=== PATIENT | female | born 1950 | race Caucasian/White ===

== ENCOUNTER → 2021-06-29 11:20 | Outpatient (CLI) | payer MEDICARE, OTHER, SELFPAY ==
[2021-06-29 11:28] LABS: Microscopic, Urine URINE MICROSCOPIC (MICROSCOPIC)
[2021-06-29 11:46] LABS: Hematocrit 40.1 % (37.0-47.0); Hemoglobin 13.2 g/dL (12.2-16.2); Mean Corpuscular HGB Conc 32.8 g/dL (31.8-35.4); Mean Corpuscular Hemoglobin 31.9 pg (27.0-31.2); Platelet Count 277 K/mm3 (142-424); Red Blood Count 4.13 M/mm3 (4.20-5.40); Red Cell Distribution Width 13.2 % (11.5-17.5); White Blood Count 6.2 K/mm3 (4.8-10.8)
[2021-06-29 12:54] LABS: Appearance,Urine CLEAR (Clear); Bilirubin,Urine Negative (Negative); Blood, Urine Negative (Negative); Color,Urine YELLOW (Yellow); Glucose,Urine (UA) Negative (Negative); Ketones,Urine Negative (Negative); Leukocyte Esterase,Urine Negative (Negative); Nitrate,Urine Negative (Negative); Protein,Urine Negative (Negative); Specific Gravity, Urine 1.025 (1.005-1.030); Urobilinogen,Urine 0.2 EU/dl (0.2)
[2021-06-29 13:04] LABS: Creatinine,Urine Random 142 mg/dL (Not Estab.)
[2021-06-29 13:07] LABS: Chloride 102 mmol/L (98-107); Potassium 4.7 mmoL/L (3.5-5.1); Sodium 141 mmol/L (136-145)
[2021-06-29 13:08] LABS: Albumin Level 4.6 g/dl (3.5-5.0)
[2021-06-29 13:10] LABS: Anion Gap 12.7 mEq/L (5-15); Blood Urea Nitrogen 21 mg/dl (7-17); Calcium 10.2 mg/dl (8.4-10.2); Carbon Dioxide 31 mmol/L (22.0-30.0); Estimated Glomerular Filt Rate 40 ml/min (>60); GFR (African American) 49 ML/MIN (>60); Glucose 106 mg/dl (74-100); Phosphorous 4.5 mg/dl (2.5-4.5)
[2021-06-29 13:15] LABS: Squamous Epithelial Cell,Urine Occasional #/hpf (0-5)
== END ==
PROVIDERS: Visit Provider Internal Medicine Nephrology
DX: I12.9 Hypertensive chronic kidney disease with stage 1 through stage 4 chronic kidney disease, or unspecified chronic kidney disease (principal)
CPT/HCPCS: 36415; 80069; 81001; 82570; 84155; 85014; 85018; 85048; 85049

== ENCOUNTER → 2021-07-05 12:59 | Outpatient (POV) | payer MEDICARE, OTHER, SELFPAY | PROVIDERS: Visit Provider Internal Medicine Nephrology | DX: Z00.00 Encounter for general adult medical examination without abnormal findings (principal) ==

== ENCOUNTER → 2021-12-13 09:10 | Outpatient (CLI) | payer MEDICARE, OTHER, SELFPAY ==
--- NOTE | 2021-12-13 09:34 | XR_ITS ---
FINAL REPORT TECHNIQUE: Bone mineral density was calculated of the lumbar spine and hip. CLINICAL HISTORY: . post menopausal FINDINGS: Using L1-4, the bone mineral density of the spine is 0.861 g/cm2, corresponding to T-score of -1.7. Using the left hip, the bone mineral density of the femoral neck is 0.649 g/cm2, corresponding to a T-score of -1.8. IMPRESSION: Diminished bone mineral density of the lumbar spine and left hip consistent with osteopenia. FRAX data: 10 year fracture risk for major osteoporotic fracture 11% Reviewed, Interpreted and Dictated by Cesar Schwartz III, MD Transcribed by Derek Quinteros Authenticated by Cesar Schwartz III, MD on 12/13/2021 01:52:[address] [facility]
== END ==
PROVIDERS: PCP Family Medicine; Visit Provider Physician Assistant
DX: Z78.0 Asymptomatic menopausal state (principal)
CPT/HCPCS: 77080

== ENCOUNTER → 2023-05-02 10:59 | Outpatient (CLI) | payer MEDICARE, OTHER, SELFPAY ==
--- NOTE | 2023-05-02 11:09 | XR_ITS ---
FINAL REPORT CLINICAL HISTORY: RIGHT KNEE PAIN FINDINGS: 3 views of the right knee were obtained. There is no acute fracture or dislocation. There are mild degenerative changes. There is a small joint effusion. IMPRESSION: Small joint effusion with mild degenerative change. Reviewed, Interpreted and Dictated by Cesar Schwartz III, MD Transcribed by Derek Quinteros Authenticated and [facility]
== END ==
PROVIDERS: PCP Physician Assistant; Visit Provider Nurse Practitioner Family
DX: M25.561 Pain in right knee (principal)
CPT/HCPCS: 73562

== ENCOUNTER 2024-04-02 01:30 | Inpatient (IN) | payer MEDICARE, OTHER, SELFPAY ==
[2024-04-02] VITALS (19 sets, daily range): BP systolic 117–230; BP diastolic 74–118; PULSE 60–80; RESP 11–26; TEMP 36.4–37; O2SAT 94–99; BMI 25.0; BMI 24.8; BMI 25.5
--- NOTE | 2024-04-02 01:40 | CT_ITS ---
PROCEDURE INFORMATION: Exam: CTA Neck With Contrast Exam date and time: 04/02/2024 2:15 AM Age: 73 years old Clinical indication: Stroke-like symptoms; Lt lower extremity weakness; Additional info: Possible stroke TECHNIQUE: Imaging protocol: Computed tomographic angiography of the neck with contrast. Exam focused on the cervical segments of the vasculature. 3D rendering (Not supervised by radiologist): MIP and/or 3D reconstructed images were created by the technologist. Radiation optimization: All CT scans at this facility use at least one of these dose optimization techniques: automated exposure control; mA and/or kV adjustment per patient size (includes targeted exams where dose is matched to clinical indication); or iterative reconstruction. Contrast material: ISOVUE; Contrast volume: 80 ml; Contrast route: INTRAVENOUS (IV); COMPARISON: CT ANGIO NECK 04/02/2024 2:15 AM FINDINGS: Right common carotid artery: No stenosis. No dissection or occlusion. Right internal carotid artery: No stenosis of the extracranial segment. No dissection or occlusion. Calcified and noncalcified plaque involving the bulb and bifurcation. There is less than 50% stenosis of the proximal ICA. Right external carotid artery: No occlusion or stenosis of the origin. Left common carotid artery: No stenosis. No dissection or occlusion. Left internal carotid artery: No stenosis of the extracranial segment. No dissection or occlusion. Focal calcific plaque proximal ICA with less than 50% stenosis. Left external carotid artery: No occlusion or stenosis of the origin. Right vertebral artery: No stenosis. No dissection or occlusion. Left vertebral artery: No stenosis. No dissection or occlusion. Left vertebral artery originates from the transverse arch. Soft tissues: Normal. No significant soft tissue swelling. Bones/joints: No acute fracture. Significant degenerative disc disease from C4 through C7. Diffuse significant cervical facet arthropathy. IMPRESSION: No occlusion. Less than 50% stenosis proximal ICA bilaterally. REFERENCES: NASCET CRITERIA. The degree of stenosis in the cervical segment of the internal carotid artery is based on NASCET criteria. Normal is no stenosis. Mild is less than 50% stenosis. Moderate is 50-69% stenosis. Severe is 70% to 99% stenosis. Total occlusion is no detectable patent lumen.
--- NOTE | 2024-04-02 01:40 | CT_ITS ---
PROCEDURE INFORMATION: Exam: CTA Head With Contrast, Arteriography Exam date and time: 04/02/2024 2:15 AM Age: 73 years old Clinical indication: Stroke-like symptoms; Lt lower extremity weakness; Additional info: Possible stroke TECHNIQUE: Imaging protocol: Computed tomographic angiography of the head with contrast. Exam focused on the arteries. 3D rendering (Not supervised by radiologist): MIP and/or 3D reconstructed images were created by the technologist. Radiation optimization: All CT scans at this facility use at least one of these dose optimization techniques: automated exposure control; mA and/or kV adjustment per patient size (includes targeted exams where dose is matched to clinical indication); or iterative reconstruction. Contrast material: ISOVUE; Contrast volume: 80 ml; Contrast route: INTRAVENOUS (IV); COMPARISON: CT HEAD/BRAIN WO CON 04/02/2024 2:09 AM FINDINGS: ANTERIOR CIRCULATION: Right internal carotid artery: Intracranial segment is patent with no significant stenosis. No aneurysm. Mild calcification of the siphon. Right middle cerebral artery: No occlusion or significant stenosis. No aneurysm. Right anterior cerebral artery: No occlusion or significant stenosis. No aneurysm. Left internal carotid artery: Intracranial segment is patent with no significant stenosis. No aneurysm. Moderate calcification siphon. Left middle cerebral artery: No occlusion or significant stenosis. No aneurysm. Left anterior cerebral artery: No occlusion or significant stenosis. No aneurysm. POSTERIOR CIRCULATION: Right vertebral artery: No occlusion or significant stenosis. No aneurysm. Left vertebral artery: No occlusion or significant stenosis. No aneurysm. Basilar artery: No occlusion or significant stenosis. No aneurysm. Right posterior cerebral artery: No occlusion or significant stenosis. No aneurysm. Left posterior cerebral artery: No occlusion or significant stenosis. No aneurysm. Brain: No definite mass, mass effect, or midline shift. Please see the separate report of the unenhanced CT of the brain. Cerebral ventricles: No ventriculomegaly. Bones/joints: Unremarkable. No acute fracture. Soft tissues: Unremarkable. IMPRESSION: No large vessel stenosis or occlusion.
--- NOTE | 2024-04-02 01:40 | CT_ITS ---
PROCEDURE INFORMATION: Exam: CT Head Without Contrast Exam date and time: 04/02/2024 2:09 AM Age: 73 years old Clinical indication: Stroke-like symptoms; Lt lower extremity weakness; Additional info: Possible stroke TECHNIQUE: Imaging protocol: Computed tomography of the head without contrast. Radiation optimization: All CT scans at this facility use at least one of these dose optimization techniques: automated exposure control; mA and/or kV adjustment per patient size (includes targeted exams where dose is matched to clinical indication); or iterative reconstruction. Other technique: STROKE PROTOCOL was implemented. COMPARISON: No relevant prior studies available. FINDINGS: Brain: There is age related atrophy. There is a subtle area of decreased density within the body of the caudate nucleus centered on image 164 series 5 suspicious for acute ischemia. No hemorrhage. There is moderate periventricular white matter hypodensity consistent with chronic small vessel disease. No mass effect. Cerebral ventricles: No ventriculomegaly. Paranasal sinuses: Visualized sinuses are unremarkable. No fluid levels. Mastoid air cells: Visualized mastoid air cells are well aerated. Orbital cavities: The orbital contents are symmetric and normal. Bones: Unremarkable. No acute fracture. Soft tissues: Unremarkable. IMPRESSION: Area of decreased density within the right caudate body centered on image 164 series 5 suspicious for acute ischemia. MR imaging is more sensitive for acute ischemic findings and could be performed as clinically indicated. ASSESSMENT: ASPECTS ([place] Stroke Program Early CT Score) is 9.
--- NOTE | 2024-04-02 01:48 | ECG_ITS ---
APPROVED REPORT Exam: Resting ECG HR:70 bpm ECG Measurements Heart Rate 70 AXES CA 184 P 62 QRSd 90 QRS -33 QT 403 T 20 QTc 424 Conclusion SINUS RHYTHM LEFT AXIS DEVIATION [QRS AXIS < -30] ABNORMAL ECG Electronically signed by : BRO CALI, 04/02/2024 18:04:13
[2024-04-02] MEDS: LABETALOL 20MG/4ML SYRINGE 10 MG IV (01:49)
[2024-04-02 01:53] LABS: Albumin Level 4.8 g/dl (3.5-5.0); Chloride 107 mmol/L (98-107); Potassium 4.4 mmoL/L (3.5-5.1); Sodium 140 mmol/L (136-145)
[2024-04-02 01:55] LABS: Blood Urea Nitrogen 29 mg/dl (7-17); Creatinine Clearance Estimated 35 mL/min (50-200); Estimated Glomerular Filt Rate 32 ml/min (>60); GFR (African American) 38 ML/MIN (>60)
[2024-04-02 01:56] LABS: Alanine Aminotransferase 22 U/L (12-78); Albumin/Globulin Ratio 1.2 (1.1-1.8); Alkaline Phosphatase 96 U/L (38-126); Anion Gap 13.4 mEq/L (5-15); Aspartate Amino Transferase 32 U/L (14-36); Bilirubin,Total 0.8 mg/dl (0.2-1.3); Calcium 10.2 mg/dl (8.4-10.2); Carbon Dioxide 24 mmol/L (22.0-30.0); Chol/HDL Ratio 5.5 (1-3.5); Cholesterol 264 mg/dl (140-200); Ethyl Alcohol < 10 mg/dl (0-10); Globulin 4.1 g/dL (1.3-3.2); Glucose 140 mg/dl (74-100); HDL Cholesterol 48 mg/dl (40-60); Total Protein,Serum 8.9 g/dl (6.3-8.2); Triglycerides 148 mg/dl (30-150); VLDL Cholesterol 30 mg/dL (0-40)
[2024-04-02 01:57] LABS: Activated Partial Thrombo Time 24.1 seconds (22.8-30.6); INR 0.95 (0.9-1.1); Prothrombin Time 10.7 seconds (10.1-12.5)
[2024-04-02 01:58] LABS: Hematocrit 44.4 % (37.0-47.0); Hemoglobin 14.3 g/dL (12.2-16.2); Mean Corpuscular Hemoglobin 32.3 pg (27.0-31.2); Mean Corpuscular Volume 100.4 fl (81-99); Red Blood Count 4.42 M/mm3 (4.20-5.40); White Blood Count 5.2 K/mm3 (4.8-10.8)
[2024-04-02 01:59] LABS: Basophils % 0.9 % (0.1-2.0); Eosinophils # 2.1 K/mm3 (0.0-0.4); Eosinophils % 2.1 % (0.1-12.0); Lymphocytes # 1.4 K/mm3 (0.7-4.5); Mean Corpuscular HGB Conc 32.1 g/dL (31.8-35.4); Mean Platelet Volume 8.9 fl (7.4-10.4); Monocytes # 0.3 K/mm3 (0.1-1.0); Monocytes % 6.3 % (1.7-9.3); Neutrophils # 3.3 K/mm3 (1.8-7.8); Neutrophils % 62.6 % (37.0-80.0); Platelet Count 281 K/mm3 (142-424); Red Cell Distribution Width 13.4 % (11.5-17.5)
--- NOTE | 2024-04-02 02:00 | PC.NURSE ---
Pt to CT at this time
[2024-04-02 02:07] LABS: Direct LDL Cholesterol 146.12 mg/dL (100-129)
[2024-04-02 02:12] LABS: Troponin I < 0.01 ng/ml (0.00-0.034)
--- NOTE | 2024-04-02 02:13 | HMH.EDGENADL ---
Discharge Plan Disposition Chief Complaint: Dizziness Prescriptions Prescriptions: No Action carvedilol 25 mg tablet 25 mg PO BID chlorthalidone 25 mg tablet 25 mg PO DAILY Rx Instructions: 1/2 daily diltiazem HCl [DILT-XR] 180 mg capsule,ext.rel 24h degradable 180 mg PO DAILY irbesartan 300 mg tablet 300 mg PO DAILY Clinical Impressions Clinical Impression: Stroke, Hypertensive emergency Print Language Print Language: Barbadian Discharge ED Provider: Albert Alegre General Adult HPI General Chief complaint: Dizziness Stated complaint: weakness/fall Time Seen by Provider: 04/02/24 01:30 Mode of Arrival: EMS Source of Information: Patient Limitations: No Limitations Description of Symptoms (Recalled from ER Triage Doc. by RN): Patient presents to ED via [facility] with left sided weakness. Patient reports increased dizziness since last monday. Patient reports it has been hard to keep her balance. Patient reports no pain at this time. Patient's b/p 209/118 on arrival. History of Present Illness HPI narrative: 73-year-old female reported history of hypertension on carvedilol chlorthalidone diltiazem and irbesartan presents for multiple complaints. She reports that for the last 3 to 4 days she has been having worsening vertigo/dizziness. She is also noticed that she is having difficulty walking because of left leg weakness. This has been slowly worsening. She called EMS tonight because she got to the point where she was unable to ambulate. Related Data Home Medications ?Medication ?Instructions ?Recorded ?Confirmed carvedilol 25 mg tablet 25 mg PO BID 04/02/24 04/02/24 chlorthalidone 25 mg tablet 25 mg PO DAILY 04/02/24 04/02/24 diltiazem HCl 180 mg 180 mg PO DAILY 04/02/24 04/02/24 capsule,extended release 24 hr, controlled (DILT-XR) irbesartan 300 mg tablet 300 mg PO DAILY 04/02/24 04/02/24 Allergies Allergy/AdvReac Type Severity Reaction Status Date / Time Penicillins Allergy Verified 04/02/24 01:44 [facility] Disclaimer: The information contained in this section may have been updated after the patient was seen, as this information can be updated by other users. Medical History (Updated 04/02/24 @ 03:41 by Albert Alegre MD) Hypertension Social History Smoking Status: Never smoker alcohol intake: never current occupational status: retired Travel in the last 8 weeks: None ROS Obtained: Yes All systems reviewed & no additional complaints except as documented Physical Exam General General appearance: alert and in no apparent distress Head Head exam: atraumatic and normocephalic Eye Eye exam: Present normal appearance, PERRL and EOMI ENT ENT exam: Present normal oropharynx and normal external ear exam Neck Neck exam: Present normal inspection and full ROM Chest Chest inspection: Present normal inspection and symmetric chest wall rise; Absent tenderness Respiratory Respiratory exam: Present normal lung sounds bilaterally; Absent respiratory distress Cardiovascular Cardiovascular exam: Present regular rate and normal rhythm Abdominal Exam Abdominal exam: Present soft; Absent distention, tenderness or guarding Extremities Exam Extremities exam: Present normal inspection; Absent edema or joint swelling Back Exam Back exam: Present normal inspection; Absent tenderness Neurological Exam Neurological exam: Present alert, oriented X3 and other (Left lower extremity weakness, drifts and hits the bed.) Psychiatric Psychiatric exam: Present normal affect and normal mood Skin Skin exam: Present warm, dry and normal color Lymphatic Lymphatic Findings: no adenopathy Medical Decision Making Medical Records Medical records reviewed: Yes I reviewed the patient's medical records. Graham Inquiry Pt receiving controlled substance: No Graham was queried for this patient: No Vital Signs: 04/02/24 01:30 04/02/24 01:45 04/02/24 02:19 Temperature 98.6 F Temperature Source Oral Pulse Rate 65 Pulse Rate [Right Brachial] 73 Respiratory Rate 18 Blood Pressure 228/105 H 206/103 H Blood Pressure [Right Arm] 209/118 H Blood Pressure Mean Blood Pressure Mean [Right Arm] 148 Blood Pressure Source [Right Arm] Automatic Cuff Blood Pressure Position [Right Arm] Supine 02 Sat by Pulse Oximetry 97 97 Oxygen Delivery Method Room Air 04/02/24 02:24 04/02/24 02:26 04/02/24 02:29 Temperature Temperature Source Pulse Rate 70 68 66 Pulse Rate [Right Brachial] Respiratory Rate 26 H 15 Blood Pressure 206/103 H 230/109 H 183/102 H Blood Pressure [Right Arm] Blood Pressure Mean Blood Pressure Mean [Right Arm] Blood Pressure Source [Right Arm] Blood Pressure Position [Right Arm] 02 Sat by Pulse Oximetry 97 95 98 Oxygen Delivery Method 04/02/24 02:45 04/02/24 02:51 Temperature Temperature Source Pulse Rate 67 68 Pulse Rate [Right Brachial] Respiratory Rate 11 L 16 Blood Pressure 185/94 H 176/92 H Blood Pressure [Right Arm] Blood Pressure Mean 120 Blood Pressure Mean [Right Arm] Blood Pressure Source [Right Arm] Blood Pressure Position [Right Arm] 02 Sat by Pulse Oximetry 99 98 Oxygen Delivery Method Lab Data Lab results reviewed: Yes I reviewed the patient's lab results. Lab Results 04/02/24 00:42: WBC 5.2, RBC 4.42, Hgb 14.3, Hct 44.4, MCV 100.4 H, MCH 32.3 H, MCHC 32.1, RDW 13.4, Plt Count 281, MPV 8.9, Neut % (Auto) 62.6, Lymph % (Auto) 27.0, Simpson % (Auto) 6.3, Eos % (Auto) 2.1, Baso % (Auto) 0.9, Neut # (Auto) 3.3, Lymph # (Auto) 1.4, Simpson # (Auto) 0.3, Eos # (Auto) 2.1 H, Baso # (Auto) 0.0, PT 10.7, INR 0.95, APTT 24.1, Sodium 140, Potassium 4.4, Chloride 107, Carbon Dioxide 24, Anion Gap 13.4, BUN 29 H, Creatinine 1.60 H, Estimated Creat Clear 35, Estimated GFR 32 L, Est GFR ( Amer) 38 L, Glucose 140 H, Calcium 10.2, Total Bilirubin 0.8, AST 32, ALT 22, Alkaline Phosphatase 96, Troponin I < 0.01, Total Protein 8.9 H, Albumin 4.8, Globulin 4.1 H, Albumin/Globulin Ratio 1.2, Triglycerides 148, Cholesterol 264 H, LDL Cholesterol Direct 146.12 H, VLDL Cholesterol 30, HDL Cholesterol 48, Cholesterol/HDL Ratio 5.5 H, Plasma/Serum Alcohol < 10 04/02/24 02:22: Urine Color Yellow, Urine Appearance Clear, Urine pH 6.0, Ur Specific [place] 1.020, Urine Protein 1+ A, Urine Glucose (UA) Negative, Urine Ketones Negative, Urine Blood Negative, Urine Nitrate Negative, Urine Bilirubin Negative, Urine Urobilinogen 0.2, Ur Leukocyte Esterase 1+ A, Urine RBC None, Urine WBC Occasional, Ur Squamous Epith Cells 3-5, Urine Bacteria Trace, Hyaline Casts Occ, Urine Opiates Screen Negative, Urine Methadone Screen Negative, Ur Barbituates Screen Negative, Ur Phencyclidine Scrn Negative, Ur Amphetamines Screen Negative, U Benzodiazepines Scrn Negative, Urine Cocaine Screen Negative, U Marijuana (THC) Screen Negative 04/02/24 00:42 04/02/24 00:42 Orders (Tests/Meds): ED MEDICATIONS Generic Name Dose Route Start Last Admin Trade Name Freq PRN Reason Stop Dose Admin Lactated Ringer's 1,000 mls @ 999 mls/hr 04/02/24 03:15 04/02/24 03:18 Lactated Ringer's 1000 Ml Bag IV 04/02/24 04:15 999 mls/hr .Q1H1M FANNY Administration Labetalol HCl 10 mg 04/02/24 01:40 04/02/24 01:49 Labetalol 20mg/4ml Syringe IV 10 mg Q10M PRN Administration BP >220/120 Sodium Chloride 10 ml 04/02/24 01:40 Sodium Chloride 0.9% 10ml Flush Syringe IV 05/02/24 01:39 NEEDED PRN Maintain IV Site Discontinued Medications Generic Name Dose Route Start Last Admin Trade Name [place] PRN Reason Stop Dose Admin Iopamidol 80 ml 04/02/24 02:23 04/02/24 02:24 Iopamidol-370 (76%);100ml Bottle IV 04/02/24 02:24 80 ml ONCE ONE Administration Labetalol HCl 10 mg 04/02/24 02:28 Labetalol 20mg/4ml Syringe IV 04/02/24 02:29 ONCE ONE Sodium Chloride 50 ml 04/02/24 02:23 04/02/24 02:24 0.9 % Sodium Chloride 50 Ml Vial IV 04/02/24 02:24 50 ml ONCE ONE Administration Sodium Chloride 10 ml 04/02/24 02:23 04/02/24 02:24 Sodium Chloride 0.9% 10ml Syr (Rad Only) IV 04/02/24 02:24 10 ml ONCE ONE Administration ORDERS Category Date Time Status CT angio head Stat Cat Scan 04/02/24 01:[address] angio neck Stat Cat Scan 04/02/24 01:[address] head/brain wo con Stat Cat Scan 04/02/24 01:40 Completed Activated Partial Thrombo Time Stat Lab 04/02/24 00:42 Completed Complete Blood Count Auto Diff Stat Lab 04/02/24 00:42 Completed Comprehensive Metabolic Panel Stat Lab 04/02/24 00:42 Completed Drug Screen,Urine Stat Lab 04/02/24 02:22 Completed Ethyl Alcohol Stat Lab 04/02/24 00:42 Completed Lipid Panel Stat Lab 04/02/24 00:42 Completed Prothrombin Time INR Stat Lab 04/02/24 00:42 Completed Troponin I Q3H Lab 04/02/24 04:45 Ordered Troponin I Q3H Lab 04/02/24 07:45 Ordered Troponin I Stat Lab 04/02/24 00:42 Completed Urinalysis and Microscopic Stat Lab 04/02/24 02:22 Completed Urine Culture Stat Micro 04/02/24 02:22 Received ECG Data Tracing #1: I reviewed this ECG and interpreted as documented below: Sinus rhythm, rate of 70, no significant ST or T wave changes, no arrhythmia ECG initial impression date: 04/02/24 ECG initial impression time: 01:49 Medical Decision Narrative: 73-year-old female presents with 3 to 4 days of worsening dizziness and left lower extremity weakness. Last known normal 3 to 4 days ago.. History was obtained via interactive discussion with patient. On arrival, patient is afebrile, hypertensive with blood pressure 230/115, regular rate and rhythm, moving all extremities spontaneously. Full physical exam performed and significant for NIH of 3: Left lower extremity drift, left lower extremity ataxia. Differential includes but is not limited to ischemic stroke, hemorrhagic stroke, hyperglycemia, hypoglycemia, central vertigo, peripheral vertigo, hypertensive urgency, hypertensive emergency Patient was given 10 of IV labetalol for goal blood pressure less than 220 systolic. Workup initiated including CT head, CTA head neck, CBC CMP EKG mag troponin On re-evaluation, patient [remains afebrile, HD stable.] Laboratory workup independently interpreted by me and significant for mildly elevated creatinine and BUN. No significant leukocytosis. Imaging independently interpreted by me and significant for subtle hypodensity in the right caudate which could be consistent with acute ischemia no large vessel occlusion on CTA's. See radiology read for full review of final results. TNK last transfer to stroke center was considered, but deemed unnecessary due to duration of time since onset of symptoms. Given patient history, exam and workup, patient's presentation most likely represents subacute stroke with left-sided weakness and dizziness. Interactive discussion was had with patient regarding her presentation. Patient is willing to be admitted for bp management, MRI. She reports that she was previously seen by Myra but no longer sees him. She reports that she saw Dr. Luis once for removal of a skin lesion but does not feel like he is her doctor. She reports that she does not really feel like she has a primary care doctor at this point. I offered her the opportunity to be admitted to the ira/pulmonary team or to the hospitalist. Patient reports that she would prefer to be seen by the in-house person jhonny. Given this, interact discussion was had with the hospitalist on-call for admission for further evaluation of stroke. Procedures Risk/Benefits of Procedure(s) Were Explained: Yes Critical Care Critical Care Time Critical Care Time: Yes Attestation: On 04/02/24, the high probability of a clinically significant, sudden or life threatening deterioration of the following system(s) KNOCKDOWN MAN required my full and direct attention, intervention and personal management. The time I documented below is in addition to time spent performing reported procedures but includes the following listed in this critical care notation. Total Time Total Critical Care Time: 40
--- NOTE | 2024-04-02 02:17 | PC.NURSE ---
Pt is back from CT at this time
[2024-04-02] MEDS: 0.9 % SODIUM CHLORIDE 50 ML VIAL IV (02:24)
[2024-04-02] MEDS: SODIUM CHLORIDE 0.9% 10ML SYR (RAD ONLY) 10 ML IV (02:24)
[2024-04-02] MEDS: IOPAMIDOL-370 (76%);100ML BOTTLE 80 ML IV (02:24)
[2024-04-02 02:32] LABS: Microscopic, Urine URINE MICROSCOPIC (MICROSCOPIC)
[2024-04-02 02:35] LABS: Appearance,Urine CLEAR (Clear); Bilirubin,Urine Negative (Negative); Blood, Urine Negative (Negative); Color,Urine YELLOW (Yellow); Glucose,Urine (UA) Negative (Negative); Ketones,Urine Negative (Negative); Leukocyte Esterase,Urine 1+ (Negative); Nitrate,Urine Negative (Negative); Protein,Urine 1+ (Negative); Urobilinogen,Urine 0.2 EU/dl (0.2)
[2024-04-02 02:47] LABS: Amphetamine/Metha Screen,Urine Negative ng/ml (<1000)
[2024-04-02 02:48] LABS: Barbiturates Screen,Urine Negative ng/ml (<200)
[2024-04-02 02:49] LABS: Benzodiazepines Screen,Urine Negative ng/ml (<200); Cannabinoid Screen,Urine Negative ng/ml (<50)
[2024-04-02 02:50] LABS: Cocaine Screen,Urine Negative ng/ml (<300)
[2024-04-02 02:51] LABS: Methadone Screen,Urine Negative ng/ml (<300); Opiate Screen,Urine Negative ng/ml (<300)
[2024-04-02 02:52] LABS: Phencyclidine Screen,Urine Negative ng/ml (<25)
--- NOTE | 2024-04-02 03:00 | PC.NURSE ---
V-rad on phone with MD at this time
[2024-04-02 03:18] LABS: WBC,Urine Occasional #/hpf (0-3)
[2024-04-02] MEDS: LACTATED RINGERS 1000ML 1,000 ML 999 ML IV (03:18)
[2024-04-02 03:19] LABS: Bacteria,Urine Trace /lpf; Hyaline Casts,Urine OCC #/lpf (0)
--- NOTE | 2024-04-02 03:37 | PC.NURSE ---
Patient admitted to room 204 for stroke, dizziness, and LLE weakness to hospitalist; observation status.
--- NOTE | 2024-04-02 03:53 | PC.NURSE ---
Report given to juan luis
--- NOTE | 2024-04-02 04:34 | P.HP_ITS ---
History of Present Illness *Admission Date: 04/02/24 *Reason for visit:: Left-sided weakness post CVA uncontrolled hypertension *History of present illness: This patient who 73 who lives with her , very low in weight questioning nutritional status also.. On multiple medications for blood pressure control. Began to have weakness on her left side that is progressed for the last 4 days with dizziness. Came to the emergency room with blood pressures greater than 2, also noted for itchy rash to legs, rash to lower extremity After seeing the patient and talking with the ER provider do agree that she needs to come in for physical therapy and OT evaluation., Presently unable to ambulate by herself, [facility] Disclaimer: The information contained in this section may have been updated after the patient was seen, as this information can be updated by other users. Medical History History of cervical cancer Hypertension Social History Smoking Status: Never smoker alcohol intake: never current occupational status: retired Travel in the last 8 weeks: None Review of Systems Review of Systems Review of systems:: pertinent systems reviewed and negative unless documented below Review of systems (narrative): Noting on review of system reviewed chart did not have any notes in our system, has been seeing a Dr. Luis, but did not want to see them was admitted to the hospitalist today Constitutional Constitutional: Reports as per HPI, Reports lethargy and Reports weakness Eyes Eyes: Reports as per HPI ENT Ears, Nose, Mouth, and Throat: Reports as per HPI *Cardiovascular Cardiovascular: Reports as per HPI and Reports leg ulcers (Red particular rash at macular to both lower extremity) *Respiratory Respiratory: Reports as per HPI Comments: Patient voiced no difficulty breathing *Gastrointestinal Gastrointestinal: Reports as per HPI Comments: Patient voiced no concerns abdominal , stated had been able to eat well but has lost her appetite over the last day and a half *Genitourinary Genitourinary: Reports as per HPI *Musculoskeletal Musculoskeletal: Reports abnormal gait and Reports atrophy Comments: Patient states she has no numbness to extremity Integumentary/Breasts Skin/Breast: Reports as per HPI, Reports skin pain and Reports sores Comments: Patient notes that both of her lower legs have a rash and they itch terribly *Neurologic Neurologic: Reports abnormal gait and Reports weakness Psychiatric Psychiatric: Reports as per HPI Endocrine Comments: No complaints voiced Hematologic/Lymphatic Comments: No complaints voiced Allergic/Immunologic Comments: No complaints from place Meds Home Medications and Allergies Home Medications ?Medication ?Instructions ?Recorded ?Confirmed ?Type carvedilol 25 mg tablet 25 mg PO BID 04/02/24 04/02/24 History chlorthalidone 25 mg tablet 25 mg PO DAILY 04/02/24 04/02/24 History diltiazem HCl 240 mg 240 mg PO DAILY 04/02/24 04/02/24 History capsule,extended release 24 hr, controlled (DILT-XR) irbesartan 300 mg tablet 300 mg PO DAILY 04/02/24 04/02/24 History New Prescriptions to Start Prescriptions: Allergies Allergy/AdvReac Type Severity Reaction Status Date / Time Penicillins Allergy Verified 04/02/24 01:44 Exam Data for Last 24 hours Vital signs and Labs for Last 24 Hours: Temp Pulse Resp BP Pulse Ox O2 Del Method 97.9 F 67 20 169/74 H 97 Room Air 04/02/24 03:53 04/02/24 03:53 04/02/24 03:53 04/02/24 03:53 04/02/24 03:46 04/02/24 01:30 Laboratory Results - last 24 hr 04/02/24 00:42: WBC 5.2, RBC 4.42, Hgb 14.3, Hct 44.4, MCV 100.4 H, MCH 32.3 H, MCHC 32.1, RDW 13.4, Plt Count 281, MPV 8.9, Neut % (Auto) 62.6, Lymph % (Auto) 27.0, [place] % (Auto) 6.3, Eos % (Auto) 2.1, Baso % (Auto) 0.9, Neut # (Auto) 3.3, Lymph # (Auto) 1.4, [place] # (Auto) 0.3, Eos # (Auto) 2.1 H, Baso # (Auto) 0.0, PT 10.7, INR 0.95, APTT 24.1, Sodium 140, Potassium 4.4, Chloride 107, Carbon Dioxide 24, Anion Gap 13.4, BUN 29 H, Creatinine 1.60 H, Estimated Creat Clear 35, Estimated GFR 32 L, Est GFR ( Amer) 38 L, Glucose 140 H, Calcium 10.2, Total Bilirubin 0.8, AST 32, ALT 22, Alkaline Phosphatase 96, Troponin I < 0.01, Total Protein 8.9 H, Albumin 4.8, Globulin 4.1 H, Albumin/Globulin Ratio 1.2, Triglycerides 148, Cholesterol 264 H, LDL Cholesterol Direct 146.12 H, VLDL Cholesterol 30, HDL Cholesterol 48, Cholesterol/HDL Ratio 5.5 H, Plasma/Serum Alcohol < 10 04/02/24 02:22: Urine Color Yellow, Urine Appearance Clear, Urine pH 6.0, Ur Specific Gilbert 1.020, Urine Protein 1+ A, Urine Glucose (UA) Negative, Urine Ketones Negative, Urine Blood Negative, Urine Nitrate Negative, Urine Bilirubin Negative, Urine Urobilinogen 0.2, Ur Leukocyte Esterase 1+ A, Urine RBC None, Urine WBC Occasional, Ur Squamous Epith Cells 3-5, Urine Bacteria Trace, Hyaline Casts Occ, Urine Opiates Screen Negative, Urine Methadone Screen Negative, Ur Barbituates Screen Negative, Ur Phencyclidine Scrn Negative, Ur Amphetamines Screen Negative, U Benzodiazepines Scrn Negative, Urine Cocaine Screen Negative, U Marijuana (THC) Screen Negative I & O for Last 24 hours: Intake & Output 03/30/24 03/31/24 04/01/24 04/02/24 23:59 23:59 23:59 23:59 Weight 70.307 kg Radiology Reports for the Last 24 Hours: Question of the ischemic changes in the caudate region, no bleeding noted, age related atrophy of the brain, and significant degenerative disc disease throughout the cervical spine Constitutional Constitutional: mild distress, thin and chronically ill appearing Comments: Patient appears to be malnourished, thin framed *Routine HEENT Exam Head: Present normocephalic and atraumatic Eye: Present EOMI, PERRL and normal accommodation ENT: Present mucous membranes dry *Routine Neck Exam Neck: Present supple and tenderness Comments: Mild tenderness throughout the neck with movement no masses found, thyroid nonenlarged *Routine Respiratory Exam Respiratory: Present decreased breath sounds, normal respiratory effort and able to speak in complete sentences *Routine Cardiovascular Exam Cardiovascular: Present RRR, Normal S1 and Normal S2 *Routine Abdominal Exam Abdominal: Present soft and normoactive bowel sounds *Routine Rectal Exam Rectal:: deferred *Routine Genitalia Exam Genitalia:: deferred *Routine Extremities Exam Extremities: Present pulses intact and normal capillary refill Routine Back/Spine/Pelvis Exam Back/Spine: Present full ROM *Routine Skin Exam Skin: Present intact, urticaria and lesions Comments: Macular rash to both lower extremity, skin is intact, question, patient complains of pruritus. Rash appears that of dry skin but possibly could be some sort of insect bite, versus infestation *Routine Neurological Exam Neurological: Present alert, oriented X3, plantar reflex, moving all extremities (Unable to extend arm and flex hip forward on the left), normal tone, hearing grossly intact and normal speech Routine Psychiatric Exam Psychiatric: Present normal affect, normal thought process, cooperative and good judgment H&P: Result Impressions 1. Left-sided stroke 2. Hypertension uncontrolled 3. Pruritic rash lower extremities bilateral 4. Acute renal insufficiency 5. Malnutrition, with enlarged red blood cell indices Imaging and Cardiology CT scan - head: Status: image reviewed by me Assessment and Plan *Assessment and plan (1) Stroke: Status: Acute Qualifiers: CVA mechanism: unspecified Qualified Code(s): I63.9 - Cerebral infarction, unspecified Category: Medical Code(s): I63.9 - Cerebral infarction, unspecified (2) Hypertensive emergency: Status: Acute Category: Medical Code(s): I16.1 - Hypertensive emergency (3) Acute renal insufficiency: Status: Acute Category: Medical Code(s): N28.9 - Disorder of kidney and ureter, unspecified (4) Rash: Status: Acute Category: Medical Code(s): R21 - Rash and other nonspecific skin eruption Plan 1. CVA with uncontrolled hypertension, talked with the emergency room physician do agree that admission is needed., Patient had other providers but states that she had been unhappy with them and wanted to be admitted to the hospitalist. Time. Has been going on for several days so admission is decided upon with PT OT and to try to get blood pressure in control. Patient has been admitted to the floor, blood pressure much better on arrival was 230/115. Also will have case management involved for discharge planning. Will also consult cardiology to evaluate present hypertensive medications, 2. Acute renal insufficiency, patient does appear to have probably some malnutrition question hydration status when at the house, have no old records available in the computer system to see what her past renal function was., Was given a liter of fluid in the emergency room will continue on 75 cc an hour to see if renal function will improve. 3. Rash lower extremities that is pruritic, will treat as if it is dry skin at the present time adding some hydrocortisone lotion/cream for comfort
[2024-04-02] MEDS: CEFTRIAXONE 1 GM 1 GM in 0.9 % SODIUM CHLORIDE 50 ML IV (04:46)
[2024-04-02] MEDS: LACTATED RINGERS 1000ML 1,000 ML 75 ML IV (04:46)
[2024-04-02 06:16] LABS: Troponin I < 0.01 ng/ml (0.00-0.034)
--- NOTE | 2024-04-02 07:43 | CA_ITS ---
APPROVED REPORT EXAM: Comprehensive 2D, Doppler, and color-flow Echocardiogram Information Technology Program Manager: MADISON Nobles, RVS Ht: 5 ft 6 in Wt: 159lbs BSA: 1.81 BP: 169/74 mmHg Indications: Dizziness, HTN, Acute renal insufficiency, Stroke 2D Dimensions Left Atrium 2.42 cm LA Volume 48.30 mL LA Volume Index 26.00 mL/m2 (M/F) 16-34 M-Mode Dimensions RVDd 1.50 cm (0.9-2.6) LA Diam 4.05 cm (1.9-4.0) LVDd 4.60 cm (3.5-5.7) LVDs 3.25 cm (3.5-5.7) IVSd 1.11 cm (0.6-1.1) PWd 1.00 cm (0.6-1.1) EF (Teich) 56.30% EPSs 0.86 cm FS 29.30% EDV (Teich) 97.30 mL TAPSE 2.74 (<1.7) ESV (Teich) 42.50 mL LV Diastology E Decel Time 223 (160-240 msec) E/A Ratio 1.00 MED A' 8.80 cm/s LAT A' 6.40 cm/s Aortic Valve MIRI Index 1.15 cm2/m2 AoV Peak Jayson. 120.0 (50-130 cm/s) AO Peak GR. 5.80 mmHg AO Mean GR. 2.90 (<5 mmHg) AO VTI 29.8 (18-25 cm) MIRI (VTI) 2.13 (2.5-4.5 cm2) Mitral Valve MV A Velocity 80.0 (40-130 cm/s) E/A Ratio 1.00 Pulmonary Valve PV Peak Velocity 88.0 (50-150 cm/s) Left Ventricle The left ventricle is normal size. The left ventricular systolic function is low normal. There is increased LV wall thickness. There is normal LV segmental wall motion. Transmitral Doppler flow pattern suggests impaired LV relaxation. LVEF is 50%. Right Ventricle The right ventricle is normal size. The right ventricular systolic function is normal. Atria Left atrium is moderately dilated. The right atrium size is normal. There is no Doppler evidence of interatrial shunt. Aortic Valve The aortic valve leaflets are mildly thickened. There is no aortic valvular stenosis. No aortic regurgitation is present. Mitral Valve The mitral valve leaflets are mildly thickened. No evidence of mitral valve stenosis. Trace mitral regurgitation. Tricuspid Valve The tricuspid valve leaflets are thin and pliable. Trace tricuspid regurgitation. There is insufficient TR jet to estimate RVSP. Pulmonic Valve The pulmonary valve is normal in structure. Trace pulmonic regurgitation. Great Vessels The aortic root is normal in size. IVC is normal in size and collapses >50% with inspiration. Pericardium There is no pericardial effusion. Other Information Study Quality: Fair Conclusion Low normal LV systolic function (LVEF 50%). Normal RV size and function. Moderate LA dilation. No significant valvular stenosis or regurgitation. Electronically signed by : Melba Taveras MD 04/02/2024 09:51:18
--- NOTE | 2024-04-02 07:44 | HMH.PHAINT1 ---
Pharmacy Intervention Comments: HOME MEDICATION LIST VERIFIED USING LIST FROM OUTPATIENT PHARMACY AND PT INTERVIEW
--- NOTE | 2024-04-02 07:54 | MR_ITS ---
FINAL REPORT CLINICAL HISTORY: CVA SYMPTOMS, LEFT SIDED WEAKNESS. stroke COMPARISON: None FINDINGS: Multiplanar MR imaging of the brain was performed without contrast. There is moderate age-appropriate atrophy. There are scattered foci of increased T2 signal in the cerebral white matter that have a nonspecific appearance but likely represent moderate chronic ischemic/gliotic changes. There is no evidence of intracranial hemorrhage or mass. No abnormal ventricular dilatation is identified. No abnormal extra-axial fluid collection is seen. There is restricted diffusion with an 18 mm focus in the right periventricular white matter consistent with an acute infarct. The posterior fossa and brainstem are unremarkable. Normal major vessel vascular flow voids are seen. There is mild mucosal thickening in multiple paranasal sinuses without air-fluid levels. IMPRESSION: Age-appropriate atrophy and moderate chronic ischemic/gliotic changes. 18 mm focus of restricted diffusion in the right periventricular white matter consistent with an acute infarct. These results were given to Dr. Gunn, 04/02/2024 at 1:10 PM. Reviewed, Interpreted and Dictated by Cesar Schwartz III, MD Transcribed by Asia Canales Authenticated and [facility]
[2024-04-02] MEDS: IRBESARTAN 300MG TABLET 300 MG PO (08:24)
[2024-04-02] MEDS: ENOXAPARIN 40MG/0.4ML SYRINGE 40 MG SQ (08:24)
[2024-04-02] MEDS: dilTIAZem HCL 180MG CAP.ER.24H 180 MG PO (08:24)
[2024-04-02] MEDS: HYDROCORTISONE 1% CREAM 30GM TUBE TP (08:24)
[2024-04-02] MEDS: CHLORTHALIDONE 25MG TABLET 25 MG PO (08:24)
[2024-04-02] MEDS: CARVEDILOL 25MG TABLET 25 MG PO ×2 (08:24→20:46)
--- NOTE | 2024-04-02 08:50 | XR_ITS ---
FINAL REPORT CLINICAL HISTORY: CHF, COPD COMPARISON: None FINDINGS: A single portable view of the chest was obtained. The heart size and pulmonary vascularity are within normal limits. The mediastinum is within normal limits. No acute pulmonary abnormality is identified. The bony thorax is intact. IMPRESSION: No active cardiopulmonary disease. Reviewed, Interpreted and Dictated by Cesar Schwartz III, MD Transcribed by Leonila Gonsalves Authenticated and [facility]
[2024-04-02 09:39] LABS: NT Pro Brain Natriuretic Pep. 1130 pg/mL (0-125)
[2024-04-02 09:45] LABS: Troponin I 0.01 ng/ml (0.00-0.034)
--- NOTE | 2024-04-02 09:55 | HMH.OTEV ---
OT Inpatient Evaluation Rehab OT IP Evaluation Start: 04/02/24 04:30 Freq: ONCE Status: Active Protocol: Document 04/02/24 09:49 [place] (Rec: 04/02/24 09:55 [facility] [id number]) Rehab OT IP Assessment Subjective History Pt oriented x 3 on arrival. Pt agreeable to engage in therapy evaluation. Pt admitted on 04/02/24 due to Left -sided weakness post CVA uncontrolled hypertension. History and physical: This patient who 73 who lives with her , very low in weight questioning nutritional status also.. On multiple medications for blood pressure control. Began to have weakness on her left side that is progressed for the last 4 days with dizziness. Came to the emergency room with blood pressures greater than 2, also noted for itchy rash to legs, rash to lower extremity After seeing the patient and talking with the ER provider do agree that she needs to come in for physical therapy and OT evaluation., Presently unable to ambulate by herself Subjective I am never weak like this. Pt reports prior to being in the hospital, she lived at home with her . Pt claims normally she is independent with all ADLs and IADLs. She does not require any type of AE during functional transfers. She also still drives. Objective Patient Orientation Person,Place,Birthday Right Upper Extremity Gross ROM WFL Left Upper Extremity Gross ROM Mod Limitation 50% Shoulder ROM Limitations Muscle Weakness Elbow ROM Limitations Muscle Weakness Wrist Limitations of Range of Motion Muscle Weakness Bed Mobility bed mobility-scooting,bed mobility - supine/sit Assist Level Minimal x 2 (25% assist) Transfer Training Sit/Stand/Step Transfer Assist Level Moderate x 2 (50% assist) Lower Body Dressing Ability Maximum Assistance Overall Commode/Toilet Transfer Ability Moderate Assistance Rehab OT IP prob,goals,plan Problems Date of Evaluation: 04/02/24 OT IP Problems Bed Mobility,Transfers,Balance ,Self care,Safety Rehab Potential Rehab Potential Good Equipment Needs Assistive Devices Rolling / Wheeled Walker Plan OT intervention Plan Bed Mobility,Transfers,Balance ,Self care,Safety,Therapeutic Exercise OT Plan Frequency Daily Duration LOS Discharge Goals Bed Mobility Ability Assistance x1 Sit to Stand Chair Transfer Ability Moderate x 1 (50% assist) Chair Transfer Ability Moderate x 1 (50% assist) Chair Transfer Technique Sit to/from Ambulatory Chair Transfer Assistive Devices Rolling Walker Feeding Ability Assist with Tray Set Up Lower Body Dressing Ability Moderate Assistance Upper Body Dressing Ability Minimal Assistance Bathing Ability Moderate Assistance Performing Toilet Hygiene Ability Moderate Assistance Overall Commode/Toilet Transfer Ability Minimal Assistance,Moderate Assistance Commode/Toilet Transfer Technique Sit to/from Ambulatory Discharge Plan OT Discharge Plan Pt will continue to be seen for OT services while at [facility]. Pt would benefit most from short term rehab following hospital stay. Continued skilled therapy services is important in order for patient to improve strength, safety, endurance, ADL independence, and functional transfers to reach PLOF. Eval Complexity Eval Charge Codes 24750 - Moderate Complexity PHYSICIAN CERTIFICATION: I certify the specified therapy services for Stacey Salcedo are required, authorized, and reviewed every 30 days.
--- NOTE | 2024-04-02 10:01 | HMH.PTEV ---
Physical Therapy Evaluation Rehab PT IP Evaluation Start: 04/02/24 04:31 Freq: ONCE Status: Active Protocol: Document 04/02/24 09:41 [place] (Rec: 04/02/24 10:01 [place] [id number]) Subjective/History History History This is the initial inpatient eval for Stacey Salcedo, a 73 yof that was admitted for a CVA and uncontrolled hypertension. Patient has a past medical history of hypertension and is currently on two medications for blood pressure. Subjective Subjective Patient stated that she lives at home with her and before this incident was independent with everything. Patient stated that she lives in a two story home with two stairs to get into the house. Patient stated that it was not required to get to the second story of her house at this time and she hasn't been driving because her is retired and drives us everywhere. Patient denied needing an assistive device before this incident occurred. New diagnosis of cancer in past 12 No months? Rehab PT IP Eval Objective Appearance Patient Behavior Appropriate,Cooperative Patient Orientation Person,Place,Birthday Difficulty following instructions none Speech Pattern Clear,Appropriate Ambulation Patient Able to Ambulate No Balance Ability to Arise Able, uses arms to help Sitting Balance Leans or slides in chair Standing Balance Steady, wide stance Transfers Bed Transfer Ability Moderate x 2 (50% assist) Sit to Stand Bed Transfer Ability Moderate x 2 (50% assist) Sit to Stand Chair Transfer Ability Moderate x 2 (50% assist) MMT All Extremities PT MMT ABN Abnormal MMT Grade Left LE Hip Flexion 4-/5, Left LE Knee Extension 4-/5 Rehab PT IP prob,goals,plan Problems Date of Evaluation: 04/02/24 PT IP Problems Bed Mobility,Transfers,Gait, Balance Rehab Potential Rehab Potential Good Equipment Needs Assistive Devices Rolling / Wheeled Walker Plan PT Intervention Plan Bed Mobility,Transfers,Gait, Balance PT Plan Frequency Daily Duration LOS Discharge Goals Bed Transfer Ability Minimal x 1 (25% assist) Sit to Stand Chair Transfer Ability Minimal x 1 (25% assist) Ambulation Assistive Device Rolling Walker Ambulation Distance (feet) 30 Discharge Plan PT Discharge Plan Patient is most appropriate for discharge to rehabilitation at this time. Skilled therapy is required for strengthening, balance, transfers, and gait to return this patient to their PLOF. Eval Complexity Eval Charge Codes 20874 - High Complexity PHYSICIAN CERTIFICATION: I certify the specified therapy services for Stacey Matias are required, authorized, and reviewed every 30 days.
--- NOTE | 2024-04-02 10:19 | SW/DCPLANNER ---
Addendum entered by Janki Caro RN 04/04/24 14:50: Patient discharged to [facility] this morning. Addendum entered by Marjan Benedicta 04/03/24 14:33: Per Aleida patient can admit to [facility] tomorrow 04/04/24 for acute rehab. Patient will admit to [facility] report phone number [phone] and fax number [phone]. Addendum entered by Marjan Benedicta 04/03/24 13:23: Patient has decided to discharge to [facility] once medically stable for discharge. Aleida w/ [facility] stated that prescreen has been started. Addendum entered by [facility] 04/03/24 10:02: Patient has expressed an interest in placement this AM. Patient stated that she feels that she needs rehab prior to returning home w/ her . Patient is interested in [facility] or [facility]. I will fax patient information this AM and continue to follow up. Discharge date is unknown at this time. Original Note: I spoke w/ this patient regarding plans once medically stable for discharge. PT/OT evaluated patient and recommended SNF level of care. Patient nor daughter are agreeable to placement at this time and prefer to return home w/ home health services. Daughter stated that patient's is at home to assist her and she is present in home often. Patient is agreeable to home health and does not have a preference. Patient/daughter also requested a rolling walker from [facility]. I will continue to follow up w/ patient and set up home health once medically stable for discharge. Discharge date is unknown at this time.
--- NOTE | 2024-04-02 10:37 | P.CONCA_ITS ---
History of Present Illness History of Present Illness Consult date: 04/02/24 Requesting physician: Han Tariq Consult reason: hypertension Chief complaint: left sided weakness History of present illness: 73-year-old white female without known history of cardiovascular disease but a long history of poorly controlled high blood pressure. She is currently maxed on 4 meds at home and reports labile readings with blood pressure up and down but averaging 120s to 130s over 70s recently. Last week she developed cold symptoms and took Coricidin HBP. She felt gradually over the next several days she had a weakness developing in her left upper extremity and left lower extremity. She got to the point where she was having difficulty ambulating to the bathroom so she came to the hospital for evaluation. On arrival blood pressure was 230/109. Creatinine elevated 1.6 with proteinuria. She had normal serial troponins. CTA head was negative for large vessel disease and bleed. MRI is pending. Her home meds were resumed and given as needed labetalol, last BP 185/86. She reports her left-sided weakness continues although she retains full function. [facility] Disclaimer: The information contained in this section may have been updated after the patient was seen, as this information can be updated by other users. Medical History History of cervical cancer Hypertension Social History Smoking Status: Never smoker alcohol intake: never current occupational status: retired Travel in the last 8 weeks: None Review of Systems Constitutional Constitutional: Reports weakness Eyes Eyes: Denies loss of vision ENT Ears, Nose, Mouth, and Throat: Denies hearing loss *Cardiovascular Cardiovascular: Denies chest pain and Denies dyspnea *Respiratory Respiratory: Denies cough and Denies dyspnea *Gastrointestinal Gastrointestinal: Denies change in stool character, Denies nausea and Denies vomiting *Musculoskeletal Musculoskeletal: Reports abnormal gait Integumentary/Breasts Skin/Breast: Denies changing lesions *Neurologic Neurologic: Reports abnormal gait, Denies loss of vision and Reports weakness Exam Data for Last 24 hours Vital signs and Labs for Last 24 Hours: Temp Pulse Resp BP Pulse Ox O2 Del Method 97.7 F 60 19 185/86 H 95 Room Air 04/02/24 08:00 04/02/24 08:00 04/02/24 08:00 04/02/24 08:00 04/02/24 08:00 04/02/24 09:00 Laboratory Results - last 24 hr 04/02/24 00:42: WBC 5.2, RBC 4.42, Hgb 14.3, Hct 44.4, MCV 100.4 H, MCH 32.3 H, MCHC 32.1, RDW 13.4, Plt Count 281, MPV 8.9, Neut % (Auto) 62.6, Lymph % (Auto) 27.0, [place] % (Auto) 6.3, Eos % (Auto) 2.1, Baso % (Auto) 0.9, Neut # (Auto) 3.3, Lymph # (Auto) 1.4, [place] # (Auto) 0.3, Eos # (Auto) 2.1 H, Baso # (Auto) 0.0, PT 10.7, INR 0.95, APTT 24.1, Sodium 140, Potassium 4.4, Chloride 107, Carbon Dioxide 24, Anion Gap 13.4, BUN 29 H, Creatinine 1.60 H, Estimated Creat Clear 35, Estimated GFR 32 L, Est GFR ( Amer) 38 L, Glucose 140 H, Calcium 10.2, Total Bilirubin 0.8, AST 32, ALT 22, Alkaline Phosphatase 96, Troponin I < 0.01, Total Protein 8.9 H, Albumin 4.8, Globulin 4.1 H, Albumin/Globulin Ratio 1.2, Triglycerides 148, Cholesterol 264 H, LDL Cholesterol Direct 146.12 H, VLDL Cholesterol 30, HDL Cholesterol 48, Cholesterol/HDL Ratio 5.5 H, Plasma/Serum Alcohol < 10 04/02/24 02:22: Urine Color Yellow, Urine Appearance Clear, Urine pH 6.0, Ur Specific [place] 1.020, Urine Protein 1+ A, Urine Glucose (UA) Negative, Urine Ketones Negative, Urine Blood Negative, Urine Nitrate Negative, Urine Bilirubin Negative, Urine Urobilinogen 0.2, Ur Leukocyte Esterase 1+ A, Urine RBC None, Urine WBC Occasional, Ur Squamous Epith Cells 3-5, Urine Bacteria Trace, Hyaline Casts Occ, Urine Opiates Screen Negative, Urine Methadone Screen Negative, Ur Barbituates Screen Negative, Ur Phencyclidine Scrn Negative, Ur Amphetamines Screen Negative, U Benzodiazepines Scrn Negative, Urine Cocaine Screen Negative, U Marijuana (THC) Screen Negative 04/02/24 05:35: Troponin I < 0.01 04/02/24 09:00: Troponin I 0.01, NT-Pro-B Natriuret Pep 1130 H I & O for Last 24 hours: Intake & Output 03/30/24 03/31/24 04/01/24 04/02/24 23:59 23:59 23:59 23:59 Intake Total 60 / 60 Output Total 0 / 0 Balance 60 / 60 Weight 159 lb 2 oz Constitutional Constitutional: no acute distress and cooperative *Routine HEENT Exam Eye: Present PERRL *Routine Respiratory Exam Respiratory: Present CTA bilaterally; Absent accessory muscle use, wheezes or crackles *Routine Cardiovascular Exam Cardiovascular: Present RRR, Normal S1 and Normal S2; Absent murmur, gallop or rubs *Routine Abdominal Exam Abdominal: Present soft; Absent tenderness *Routine Extremities Exam Extremities: Present pulses intact; Absent cyanosis or edema *Routine Skin Exam Skin: Present intact; Absent erythema or wounds *Routine Neurological Exam Neurological: Present alert and oriented X3 Routine Psychiatric Exam Psychiatric: Present cooperative Meds Home Medications and Allergies Home Medications ?Medication ?Instructions ?Recorded ?Confirmed ?Type carvedilol 25 mg tablet 25 mg PO BID 04/02/24 04/02/24 History chlorthalidone 25 mg tablet 25 mg PO DAILY 04/02/24 04/02/24 History diltiazem HCl 240 mg 240 mg PO DAILY 04/02/24 04/02/24 History capsule,extended release 24 hr, controlled (DILT-XR) irbesartan 300 mg tablet 300 mg PO DAILY 04/02/24 04/02/24 History New Prescriptions to Start Prescriptions: Allergies Allergy/AdvReac Type Severity Reaction Status Date / Time Penicillins Allergy Verified 04/02/24 01:44 Assessment and Plan *Assessment and plan (1) Hypertensive emergency: Status: Acute Category: Medical Code(s): I16.1 - Hypertensive emergency (2) Stroke: Status: Acute Qualifiers: CVA mechanism: unspecified Qualified Code(s): I63.9 - Cerebral infarction, unspecified Category: Medical Code(s): I63.9 - Cerebral infarction, unspecified (3) Acute renal insufficiency: Status: Acute Category: Medical Code(s): N28.9 - Disorder of kidney and ureter, unspecified Plan Hypertensive Emergency - known chronic Htn, typically well controlled 120s-130s per pt - denies chronic pain and anxiety but admits to poor sleep - 230/109 here - 185/86 despite home meds - add Adlactone 25mg daily, check CXR, PROBNP, ECHO w/definity. MRI pending - will initiate secondary htn workup: TFT, Sleep study, renal duplex. 24h urine catecholamines, plasma renin and aldosterone Presumed CVA - LUE/LLL weakness - CTA Head/Neck - no large vessel disease, no hemorrhage Renal Insufficiency - CR 1.6 with +proteinuria - unknown baseline, likely hypertensive nephropathy - cont BP control - daily labs
--- NOTE | 2024-04-02 10:45 | CA_ITS ---
FINAL REPORT TECHNIQUE: Grayscale, color Doppler and duplex Doppler ultrasound of the kidneys, aorta and renal arteries was performed. Multiple velocities were measured. CLINICAL HISTORY: HTN,RENAL INSUFF COMPARISON: None FINDINGS: Aorta velocity: 70.3 cm/sec Right kidney: 8.8 cm. No evidence of hydronephrosis or mass. Right intrarenal RI: 0.74 Right renal artery velocity: 141 cm/sec. Right RAR (Renal artery-Aortic Ratio): 2.0 Left Kidney: 9.74 cm. No evidence of renal mass or hydronephrosis. Left intrarenal RI: 0.84 Left renal artery velocity: 119 cm/sec. Left RAR (Renal Artery-Aortic Ratio): 1.7 IMPRESSION: No evidence of significant renal artery stenosis. CT angiogram or postcontrast MR angiogram would be more sensitive for evaluation of possible renal artery stenosis. Reviewed, Interpreted and Dictated by Cesar Schwartz III, MD Transcribed by Asia Canales Authenticated and [facility]
[2024-04-02] MEDS: SPIRONOLACTONE 25MG TABLET 25 MG PO (11:54)
[2024-04-02 12:06] LABS: Thyroid Stimulating Hormone 0.65 uIU/mL (0.465-4.68)
--- NOTE | 2024-04-02 12:07 | HMH.ITSTN ---
attempted pcxr, patient using bathroom at this time.
--- NOTE | 2024-04-02 12:25 | P.EN_ITS ---
Appreciate and agree with H&P written overnight by rob. Briefly, patient is a 73-year-old with past medical history of hypertension, renal insufficiency. Patient presents with vertigo, left-sided ataxia worsening over past 3 days. Also admits to some left-sided persistent weakness over past 72 hours. Reports cold symptoms x 1 week ago. States she fell last night secondary to left side ataxia. Also admits to some occasional tinnitus. Admits to similar episode of vertigo 10 years ago. MRI brain currently pending. Worried about possible CVA with residual left-sided weakness. Patient on multiple blood pressure medicines including Coreg 25, Avapro 300, chlorthalidone 25. Started on Aldactone 25 mg p.o. daily. Patient also on diltiazem at home for unknown reasons. Will discontinue diltiazem extended release and start nifedipine extended release 60 mg p.o. daily. If able to get patient's blood pressure consistently less than 160, will consider hospital disposition today. Otherwise, patient may require overnight observation stay for continued blood pressure monitoring/control. Spoke with managing consultant, with echocardiogram pending. Seen by physical therapy and appropriate for short-term rehab. However, patient declined short- term rehab and desires home health with rolling walker at time of hospital disposition.
[2024-04-02] MEDS: HYDRALAZINE 20MG/ML VIAL 10 MG IV (12:31)
[2024-04-02] MEDS: ONDANSETRON 4MG/2ML VIAL 4 MG IV (13:03)
[2024-04-02] MEDS: NIFEdipine XL 30MG TABLET 60 MG PO (13:04)
[2024-04-02] MEDS: GABAPENTIN 100MG CAPSULE 200 MG PO (15:49)
--- NOTE | 2024-04-02 17:55 | PC.NURSE ---
Pt alert and oriented X4. Pt has some left sided weakness of the arm and leg resulting from stroke. Pt has c/o nausea/dizziness and was medicated per MAR. Pt also has some high blood pressures this shift, MD made aware and was medicated per MAR. Pt has not been able to get out of bed this shift and has just felt too weak. Pt worked with pt this morning but did not this afternoon due to pt high blood pressure. Pt stated she is not eating meals because she has no appetite. Voiding per nateck. Pt also began to c/o tingling and restlessness in her left leg. MD made aware and ordered a one time dose of gabapentin 200 mg PO, pt stated this helped and has been resting in bed comfortably since. Family at bedside.
[2024-04-02] MEDS: 0.9 % SODIUM CHLORIDE 1000ML 1,000 ML 100 ML IV (18:38)
[2024-04-02] MEDS: ACETAMINOPHEN 325MG TAB 650 MG PO (18:47)
[2024-04-02] MEDS: CLOPIDOGREL 75MG TAB 75 MG PO (18:51)
[2024-04-02] MEDS: ASPIRIN EC 81MG TABLET 81 MG PO (18:56)
[2024-04-02] MEDS: PANTOPRAZOLE 40MG TABLET 40 MG PO (20:46)
[2024-04-02] MEDS: ATORVASTATIN 40MG TABLET 80 MG PO (20:46)
[2024-04-03] VITALS (7 sets, daily range): BP systolic 97–146; BP diastolic 54–81; PULSE 60–120; RESP 12–18; TEMP 36.3–36.8; O2SAT 93–96; BMI 25.5
[2024-04-03] MEDS: 0.9 % SODIUM CHLORIDE 1000ML 1,000 ML 100 ML IV (04:44)
[2024-04-03] MEDS: CEFTRIAXONE 1 GM 1 GM in 0.9 % SODIUM CHLORIDE 50 ML IV (04:44)
--- NOTE | 2024-04-03 04:46 | EXP.PN ---
Subjective *Date: 04/03/24 *Time: 04:46 Interval history: Nursing notified me that her blood pressure had decreased, was rechecked by the nurse came back at about 112/58. Patient continues upon IV normal saline 100 an hour Exam Data for Last 24 hours Vital signs and Labs for Last 24 Hours: Temp Pulse Resp BP Pulse Ox O2 Del Method 97.8 F 62 16 97/54 L 93 L Room Air 04/03/24 04:00 04/03/24 04:00 04/03/24 04:00 04/03/24 04:00 04/03/24 04:00 04/03/24 04:00 Laboratory Results - last 24 hr 04/02/24 00:42: TSH 0.65 04/02/24 05:35: Troponin I < 0.01 04/02/24 09:00: Hemoglobin A1c 6.0, Troponin I 0.01, NT-Pro-B Natriuret Pep 1130 H I & O for Last 24 hours: Intake & Output 03/31/24 04/01/24 04/02/24 04/03/24 23:59 23:59 23:59 23:59 Intake Total 120 / 756 636 / 636 Output Total 1100 / 1100 300 / 300 Balance -980 / -344 336 / 336 Weight 72.178 kg 72.178 kg Constitutional Constitutional: no acute distress Comments: Patient is alert and talking well in bed voiced no complaints *Routine Respiratory Exam Respiratory: Present normal respiratory effort and able to speak in complete sentences Comments: Lungs were clear *Routine Cardiovascular Exam Cardiovascular: Present RRR, Normal S1 and Normal S2 *Routine Neurological Exam Neurological: Present alert, oriented X3 and CN II-XII intact Comments: No new deficits noted patient is alert very friendly answers questions freely Assessment and Plan *Assessment and plan (1) Hypotension: Status: Acute Category: Medical Code(s): I95.9 - Hypotension, unspecified Plan 1. Hypotension: Patient's blood pressure getting closer to 100, being careful not to drop it too much because of her recent stroke, has not received any new medications in the last 4 to 6 hours. Will continue to monitor as she is stable at this time with no change. Will update oncoming physician, of the IV fluid rate and that she also gets spironolactone in the morning but there is no signs of fluid overload at this time.
--- NOTE | 2024-04-03 05:38 | PC.NURSE ---
Patient is alert and oriented x4. Patient was observed to have eyes closed, respirations even and unlabored, and no apparent distress throughout the majority of the night. Patient was also observed to have left-sided weakness and flaccidity in her left limbs. Small, scattered red bumps on her bilateral lower extremities were noted; patient did not complain of any itching or discomfort in the area this shift. Patient's lung sounds were clear and her bowel sounds were active upon auscultation. Her vital signs have remained in a desired range; however, at 04:00 this shift, her blood pressure drastically dropped to 97/54. Per 04:30 Provider Notification, Jm FENCE POST DRIVER was notified of this [id number], automatic and manual blood pressures were taken, and no further interventions were needed. FENCE [employer]IVER voiced that he will pass the information along with the oncoming provider, addressing her fluid infusions and spironolactone order. Patient has not had any complaints of nausea, dizziness, or pain. She has had an adequate IV intake and output this shift; female purewick is in place and functioning. Patient has received her scheduled medications per SEP. She currently has normal saline infusing at 100mL/hr. No acute changes are noted thus far. Bed alarm is on. Call light within reach.
[2024-04-03 06:17] LABS: Basophils % 0.5 % (0.1-2.0); Eosinophils # 0.1 K/mm3 (0.0-0.4); Eosinophils % 1.7 % (0.1-12.0); Hematocrit 36.8 % (37.0-47.0); Lymphocytes # 1.8 K/mm3 (0.7-4.5); Lymphocytes % 25.9 % (10-50); Mean Corpuscular HGB Conc 32.6 g/dL (31.8-35.4); Mean Corpuscular Hemoglobin 31.7 pg (27.0-31.2); Mean Corpuscular Volume 97.2 fl (81-99); Monocytes # 0.5 K/mm3 (0.1-1.0); Neutrophils # 4.4 K/mm3 (1.8-7.8); Neutrophils % 64.9 % (37.0-80.0); Platelet Count 245 K/mm3 (142-424); Red Blood Count 3.78 M/mm3 (4.20-5.40); Red Cell Distribution Width 13.5 % (11.5-17.5); White Blood Count 6.8 K/mm3 (4.8-10.8)
[2024-04-03 06:39] LABS: Alanine Aminotransferase 19 U/L (12-78); Albumin Level 3.4 g/dl (3.5-5.0); Alkaline Phosphatase 68 U/L (38-126); Anion Gap 9.8 mEq/L (5-15); Aspartate Amino Transferase 38 U/L (14-36); Bilirubin,Total 0.5 mg/dl (0.2-1.3); Blood Urea Nitrogen 23 mg/dl (7-17); Calcium 8.8 mg/dl (8.4-10.2); Carbon Dioxide 25 mmol/L (22.0-30.0); Chloride 106 mmol/L (98-107); Creatinine Clearance Estimated 41 mL/min (50-200); Estimated Glomerular Filt Rate 37 ml/min (>60); GFR (African American) 45 ML/MIN (>60); Globulin 3.5 g/dL (1.3-3.2); Glucose 114 mg/dl (74-100); Magnesium 1.2 mg/dl (1.6-2.3); Potassium 3.8 mmoL/L (3.5-5.1); Sodium 137 mmol/L (136-145); Total Protein,Serum 6.9 g/dl (6.3-8.2)
[2024-04-03 09:19] LABS: Ferritin 148 ng/ml (11.1-264)
[2024-04-03] MEDS: ENOXAPARIN 40MG/0.4ML SYRINGE 40 MG SQ (09:34)
[2024-04-03] MEDS: CARVEDILOL 25MG TABLET 25 MG PO ×2 (09:34→20:19)
[2024-04-03] MEDS: CLOPIDOGREL 75MG TAB 75 MG PO (09:34)
[2024-04-03] MEDS: ASPIRIN EC 81MG TABLET 81 MG PO (09:35)
[2024-04-03] MEDS: CHLORTHALIDONE 25MG TABLET 25 MG PO (09:35)
[2024-04-03] MEDS: HYDROCORTISONE 1% CREAM 30GM TUBE TP (09:35)
[2024-04-03] MEDS: IRBESARTAN 150MG TAB 150 MG PO (09:39)
--- NOTE | 2024-04-03 10:45 | EXP.CARD.PN ---
Subjective Subjective Date: 04/03/24 Time: 10:46 Interval history: Significant drop in BP to 90?100 systolic on home meds. Patient reports she is compliant but occasionally BP will range from 90?230 systolic. MRI confirmed new right periventricular white matter CVA. Her weakness continues. She is awaiting discharge to rehab. She denies any symptom changes overnight. No specific questions or concerns this morning. Exam Data for Last 24 hours Vital signs and Labs for Last 24 Hours: Temp Pulse Resp BP Pulse Ox O2 Del Method 97.3 F L 70 12 105/62 L 94 L Room Air 04/03/24 07:58 04/03/24 08:00 04/03/24 07:58 04/03/24 07:58 04/03/24 07:58 04/03/24 08:00 Laboratory Results - last 24 hr 04/02/24 00:42: TSH 0.65 04/02/24 09:00: Hemoglobin A1c 6.0 04/03/24 05:49: WBC 6.8 D, RBC 3.78 L, Hgb 12.0 L, Hct 36.8 L, MCV 97.2, MCH 31.7 H, MCHC 32.6, RDW 13.5, Plt Count 245, MPV 8.0, Neut % (Auto) 64.9, Lymph % (Auto) 25.9, [place] % (Auto) 7.0, Eos % (Auto) 1.7, Baso % (Auto) 0.5, Neut # (Auto) 4.4, Lymph # (Auto) 1.8, [place] # (Auto) 0.5, Eos # (Auto) 0.1, Baso # (Auto) 0.0, Sodium 137, Potassium 3.8, Chloride 106, Carbon Dioxide 25, Anion Gap 9.8, BUN 23 H, Creatinine 1.40 H, Estimated Creat Clear 41, Estimated GFR 37 L, Est GFR ( Amer) 45 L, Glucose 114 H, Calcium 8.8, Magnesium 1.2 L, Ferritin 148, Total Bilirubin 0.5, AST 38 H, ALT 19, Alkaline Phosphatase 68, Total Protein 6.9, Albumin 3.4 L D, Globulin 3.5 H, Albumin/Globulin Ratio 1.0 L I & O for Last 24 hours: Intake & Output 03/31/24 04/01/24 04/02/2404/03/24 23:59 23:59 23:59 23:59 Intake Total 120 / 756 636 / 636 Output Total 1100 / 1100 600 / 600 Balance -980 / -344 36 / 36 Weight 159 lb 2 oz 159 lb 2.004 oz Constitutional Constitutional: no acute distress and cooperative *Routine HEENT Exam Eye: Present PERRL *Routine Respiratory Exam Respiratory: Present CTA bilaterally; Absent accessory muscle use, wheezes or crackles *Routine Cardiovascular Exam Cardiovascular: Present RRR, Normal S1 and Normal S2; Absent murmur, gallop or rubs *Routine Abdominal Exam Abdominal: Present soft; Absent tenderness *Routine Extremities Exam Extremities: Present pulses intact; Absent cyanosis or edema *Routine Skin Exam Skin: Present intact; Absent erythema or wounds *Routine Neurological Exam Neurological: Present alert and oriented X3 Routine Psychiatric Exam Psychiatric: Present cooperative Progress Note: A&P Assessment and plan (1) Hypertensive emergency: Status: Acute (2) Acute renal insufficiency: Status: Acute (3) Stroke: Status: Acute Assessment and Plan Assessment and Plan for All Diagnoses:: Hypertensive Emergency - BP 230s with acute CVA - known chronic Htn, typically well controlled 120s-130s per pt but occasionally varies 90-230 - denies chronic pain and anxiety but admits to poor sleep - significant drop overnight with home meds - CXR - clear - ECHO -EF 50%, moderate LA dilation - Renal duplex-normal - secondary htn workup ordered/pending: TFT, Sleep study, 24h urine catecholamines, plasma renin and aldosterone Acute Right Periventricular white matter CVA - with residual LUE/LLL weakness - on DAPT/Statin Renal Insufficiency - CR 1.6 with +proteinuria on presentation - unknown baseline, likely hypertensive nephropathy - cont BP control - daily labs CV stable, cont to monitor BP closely. She can f/u in our office 2 weeks.
--- NOTE | 2024-04-03 12:26 | P.PN_ITS ---
Subjective *Date: 04/03/24 *Time: 12:37 Interval history: Patient's blood pressure is low normal today. Patient's blood pressure meds severely reduced prior to a.m. medication administration due to hypotension issues starting around midnight. Patient states she felt stronger, with resolv ed headache this a.m. Still suffering from persistent left lower extremity weakness/numbness I just want to walk again. Family present during interview by Dr. Gunn today. Patient also states my blood pressure does this at home first it's up then its down. Medical Exam Vital signs and Labs for Last 24 Hours: Vital Signs Temp Pulse Pulse Resp BP Pulse Ox O2 Del Method 04/03/24 12:00 80 04/03/24 11:00 Room Air 04/03/24 09:00 Room Air 04/03/24 08:00 Room Air 04/03/24 08:00 70 04/03/24 07:58 97.3 F L 63 12 105/62 L 94 L Room Air 04/03/24 07:00 Room Air 04/03/24 05:00 Room Air 04/03/24 04:00 60 04/03/24 04:00 97.8 F 62 16 97/54 L 93 L Room Air 04/03/24 03:00 Room Air 04/03/24 01:00 Room Air 04/03/24 00:00 98.1 F 72 16 146/71 H 95 Room Air 04/03/24 00:00 60 04/02/24 23:00 Room Air 04/02/24 21:00 Room Air 04/02/24 20:00 70 16 94 L Room Air 04/02/24 20:00 70 04/02/24 19:57 98.1 F 65 16 167/97 H 94 L 04/02/24 19:00 Room Air 04/02/24 17:00 Room Air 04/02/24 16:00 98.1 F 72 19 168/89 H 94 L Room Air 04/02/24 16:00 60 04/02/24 15:00 Room Air 04/02/24 13:00 Room Air Intake and Output 04/02/24 04/03/24 04/03/24 23:59 07:59 15:59 Intake Total 60 / 756 636 / 976 340 / 976 Output Total 800 / 1100 600 / 600 Balance -740 / -344 36 / 376 340 / 376 Intake: Intake, Oral Amount 60 / 220 100 / 440 340 / 440 Intake, Total IV Amount 536 / 536 0.9 % Sodium Chloride 1000ML 1, 536 / 536 000 ml @ 100 mls/hr IV .Q10H [facility] Rx#:[id number] Output: Output, Urine Amount 800 / 1100 600 / 600 Other: Number of Voids 0 Number of Unmeasured Voids 0 0 Weight 72.178 kg 72.18 kg Patient Weight 04/03/24 23:59 Weight 72.18 kg Laboratory Results - last 24 hr 04/02/24 09:00: Hemoglobin A1c 6.0 04/03/24 05:49: WBC 6.8 D, RBC 3.78 L, Hgb 12.0 L, Hct 36.8 L, MCV 97.2, MCH 31.7 H, MCHC 32.6, RDW 13.5, Plt Count 245, MPV 8.0, Neut % (Auto) 64.9, Lymph % (Auto) 25.9, [place] % (Auto) 7.0, Eos % (Auto) 1.7, Baso % (Auto) 0.5, Neut # (Auto) 4.4, Lymph # (Auto) 1.8, [place] # (Auto) 0.5, Eos # (Auto) 0.1, Baso # (Auto) 0.0, Sodium 137, Potassium 3.8, Chloride 106, Carbon Dioxide 25, Anion Gap 9.8, BUN 23 H, Creatinine 1.40 H, Estimated Creat Clear 41, Estimated GFR 37 L, Est GFR ( Amer) 45 L, Glucose 114 H, Calcium 8.8, Magnesium 1.2 L, Ferritin 148, Total Bilirubin 0.5, AST 38 H, ALT 19, Alkaline Phosphatase 68, Total Protein 6.9, Albumin 3.4 L D, Globulin 3.5 H, Albumin/Globulin Ratio 1.0 L I & O for Labs for Last 24 Hours: Intake & Output 03/31/24 04/01/24 04/02/24 04/03/24 23:59 23:59 23:59 23:59 Intake Total 120 / 756 976 / 976 Output Total 1100 / 1100 600 / 600 Balance -980 / -344 376 / 376 Weight 72.178 kg 72.18 kg Radiology Reports for the Last 24 Hours: 04/02/2024 MRI brain: Acute stroke right periventricular region white matter with extension toward basal ganglia Head: Present atraumatic ENT: Present normal exam and mucous membranes moist Neck: Present normal inspection and full ROM Respiratory: Present CTA bilaterally and normal respiratory effort Cardiac: Present Reg Rate and Rhythm GI: Present soft and normal bowel sounds Rectal (female): Present deferred (female): Present deferred Extremities: Present normal inspection Skin: Present intact and dry Assessment and Plan *Assessment and plan (1) Stroke: Status: Acute Qualifiers: CVA mechanism: unspecified Qualified Code(s): I63.9 - Cerebral infarc tion, unspecified Category: Medical Code(s): I63.9 - Cerebral infarction, unspecified (2) Hypotension: Status: Acute Category: Medical Code(s): I95.9 - Hypotension, unspecified (3) Hypertensive emergency: Status: Acute Category: Medical Code(s): I16.1 - Hypertensive emergency (4) Acute renal insufficiency: Status: Acute Category: Medical Code(s): N28.9 - Disorder of kidney and ureter, unspecified (5) Rash: Status: Acute Category: Medical Code(s): R21 - Rash and other nonspecific skin eruption Plan 73-year-old patient who presented with 3 days of left-sided ataxia, weakness, vertigo symptoms. 04/02 MRI brain shows acute right periventricular infarct. Patient originally presented with hypertensive emergency, but now suffering from hypotension after blood pressure correction. Patient amendable to short-term rehab placement. Hypertensive emergency: ? 04/03 patient's blood pressure medicines significantly decreased prior to a.m. med administration due to low normal blood pressures noted overnight. Discontinued patient's spironolactone, nifedipine. Patient's irbesartan changed from 300 to 150 mg. Continue patient on Coreg 25 mg, and chlorthalidone 25 mg. Will continue to watch blood pressure trends closely. Acute right periventricular CVA: ? Patient currently on aspirin, Plavix, high-dose statin therapy; all well- tolerated. Patient amendable to short-term rehab placement. PT/OT occurring daily during hospitalization. Short-term rehabilitation arrangements in progress. DARIO: Will continue cautious hydration during hospitalization. Patient appears to be suffering from baseline renal insufficiency issues. Will recommend close outpatient nephrology follow-up. Malnutrition: ? While patient may benefit from cardiac diet, will place patient on regular diet to optimize nutrition during hospitalization. Dietary consultations occurring daily during interdisciplinary treatment rounds.. PPx: Lovenox subcutaneous CODE STATUS full FEN: Regular diet to encourage optimal p.o. intake, correct electrolytes as needed. Disposition: Hopefully to short-term rehab once arrangements finalized. Case discussed in depth by Dr. Gunn with patient, patient's daughter, nursing staff, case management, dietary, PT, OT during interdisciplinary treatment rounds 04/03/2024
[2024-04-03] MEDS: POTASSIUM CHLORIDE 20MEQ TAB 40 MEQ PO (14:03)
[2024-04-03 16:54] LABS: Folate, RBC 1223 ng/mL (>498); Hematocrit 36.4 % (34.0-46.6)
--- NOTE | 2024-04-03 17:54 | PC.NURSE ---
Pt sitting up in bedside chair majority of shift. Pt stated she feels much better today compared to yesterday. She has tolerated meals with ensures and has had no episodes of nausea/vomiting. No c/o headaches or dizziness this shift. Pt is still having left sided weakness of extremities. Plan is to discharge tomorrow to [facility]. Family at bedside. Pt is resting comfortably with no complaints at this time.
[2024-04-03] MEDS: ATORVASTATIN 40MG TABLET 80 MG PO (20:19)
[2024-04-03] MEDS: PANTOPRAZOLE 40MG TABLET 40 MG PO (20:19)
[2024-04-04] VITALS: BP 137/78; PULSE 120; PULSE 85; RESP 16; TEMP 36.7; O2SAT 93
--- NOTE | 2024-04-04 03:42 | ECG_ITS ---
APPROVED REPORT Exam: Resting ECG HR:129 bpm ECG Measurements Heart Rate 129 AXES QRSd 81 QRS -54 QT 309 T 72 QTc 385 Conclusion ATRIAL FIBRILLATION WITH RAPID VENTRICULAR RESPONSE PATTERN CONSISTENT WITH PULMONARY DISEASE LEFT ANTERIOR FASCICULAR BLOCK [QRS AXIS <= -45, QR IN I, RS IN II] MINIMAL ST DEPRESSION [0.025+ mV ST DEPRESSION] ABNORMAL ECG UNCONFIRMED REPORT Electronically signed by : RANGEL ABDI, 04/04/2024 07:08:00
[2024-04-04 04:00] VITALS: BP 112/80; PULSE 108; PULSE 120; RESP 17; TEMP 36.8; O2SAT 95; BMI 25.9
[2024-04-04] MEDS: METOPROLOL TARTRATE 5MG/5ML VIAL 5 MG IV ×3 (04:02→04:26)
[2024-04-04] MEDS: MAGNESIUM SULFATE IN WATER 2 GM/50 ML PIGGYBACK IV (04:24)
[2024-04-04] MEDS: 0.9 % SODIUM CHLORIDE 1000ML 1,000 ML 500 ML IV (04:54)
[2024-04-04] MEDS: dilTIAZem 25MG/5ML VIAL 5 MG IV (04:54)
--- NOTE | 2024-04-04 05:07 | EXP.PN ---
Subjective *Date: 04/04/24 *Time: 07:33 Interval history: Notified by nursing staff at approximately 4:30 AM, that the patient was in A-fib and heart rate was staying above 08/20/1929 most of the time., That patient was asymptomatic and blood pressure systolic remaining in the 130s, Nursing had looked back and noted that the patient went into A-fib at approximately 2:30 PM yesterday afternoon., And reading cardiology and hospitalist notes this is not mention. Unsure if physicians were made aware of this. Upon arriving to the room find the patient is stable blood pressure 139/96 heart rate going from low of around the 100 105 up to 135 136 with an A-fib pattern on the monitor. Talked with the patient she did not feel bad stated that she had been urinating well, noting with staff she had been drinking protein drinks but did not appear to be consuming large amounts of fluid. Reviewing chart Terrence on Coreg had been on Cardizem., She originally came in for strokelike symptoms which has been proven positive but was also in hypertensive crisis, blood pressure then was able to be reduced and actually was sort of low now had gone back up into the 120s 130s systolic. Exam Data for Last 24 hours Vital signs and Labs for Last 24 Hours: Temp Pulse Resp BP Pulse Ox O2 Del Method 98.3 F 108 H 17 112/80 95 Room Air 04/04/24 04:00 04/04/24 04:00 04/04/24 04:00 04/04/24 04:00 04/04/24 04:00 04/04/24 04:00 Laboratory Results - last 24 hr 04/02/24 12:12: Hct (Send Out) 36.4, Folate Hemolysate 445.0, RBC Folate 1223 04/03/24 05:49: WBC 6.8 D, RBC 3.78 L, Hgb 12.0 L, Hct 36.8 L, MCV 97.2, MCH 31.7 H, MCHC 32.6, RDW 13.5, Plt Count 245, MPV 8.0, Neut % (Auto) 64.9, Lymph % (Auto) 25.9, [place] % (Auto) 7.0, Eos % (Auto) 1.7, Baso % (Auto) 0.5, Neut # (Auto) 4.4, Lymph # (Auto) 1.8, [place] # (Auto) 0.5, Eos # (Auto) 0.1, Baso # (Auto) 0.0, Sodium 137, Potassium 3.8, Chloride 106, Carbon Dioxide 25, Anion Gap 9.8, BUN 23 H, Creatinine 1.40 H, Estimated Creat Clear 41, Estimated GFR 37 L, Est GFR ( Amer) 45 L, Glucose 114 H, Calcium 8.8, Magnesium 1.2 L, Ferritin 148, Total Bilirubin 0.5, AST 38 H, ALT 19, Alkaline Phosphatase 68, Total Protein 6.9, Albumin 3.4 L D, Globulin 3.5 H, Albumin/Globulin Ratio 1.0 L I & O for Last 24 hours: Intake & Output 04/01/24 04/02/24 04/03/24 04/04/24 23:59 23:59 23:59 23:59 Intake Total 120 / 756 1656 / 1806 150 / 150 Output Total 1100 / 1100 900 / 1300 1000 / 1000 Balance -980 / -344 756 / 506 -850 / -850 Weight 72.178 kg 72.18 kg 73.164 kg Constitutional Constitutional: no acute distress Comments: On monitor heart rate up above the 120s and an A-fib pattern *Routine Respiratory Exam Respiratory: Present normal respiratory effort and able to speak in complete sentences Comments: Lungs clear *Routine Cardiovascular Exam Cardiovascular: Present tachycardia Comments: Patient has palpable radial pulse that varies in intensity. Is a regular but nailbeds are pink with brisk capillary refill *Routine Extremities Exam Comments: Moves all extremities well *Routine Skin Exam Comments: [place] warm and dry Routine Psychiatric Exam Comments: Patient is alert with no deficits answers questions well and is very pleasant to speak with Assessment and Plan *Assessment and plan (1) Atrial fibrillation with RVR: Status: Acute Category: Medical Code(s): I48.91 - Unspecified atrial fibrillation Plan Atrial fibs: Came to the floor to see the patient. Noting on the monitor sometimes would go was low was about 106 but then back up into the 130s on heart rate. Blood pressure remaining stable above 1 Rolf systolic when being chest. Patient was also noted for low magnesium so magnesium was replaced patient then received Lopressor 5 mg slowly IV x 3, approximately 20 minutes after the last Lopressor heart rate had slowed some but still was going back up above 120s and sometimes into the 130s. Make sure to maintain blood pressure a 500 cc bolus of normal saline was given. Then did Cardizem 5 mg IV bolus, heart rate then was able to decrease into the 70s up to about 110 varying in rate. Plan will watch the heart rate at this point in time we will use Cardizem 5 mg IV push if becomes steadily above 120 heart rate. Did not want did not want to give any p.o. medication at this time to allow the daytime providers and the stoker mechanic to decide which treatment was best., Due to her ovarian blood pressure noted that she was placed on Coreg and her Cardizem 240 SR was held. Twelve-lead EKG has been ordered for the morning, have not moved the patient to a stepdown unit as she is stable at this time talking alert oriented and in no distress. Will continue to monitor closely until relieved in the morning.
[2024-04-04] MEDS: CEFTRIAXONE 1 GM 1 GM in 0.9 % SODIUM CHLORIDE 50 ML IV (05:25)
--- NOTE | 2024-04-04 05:57 | PC.NURSE ---
Pt has remained in what appears to be Afib since the start of the shift at 1900. An EKG was obtained at 0342 which confirmed Afib with RVR @129. Pt was asymptomatic. DIANETIC COUNSELOR notified and arrived to pt bedside. 3 doses of iv lopressor 5mg was ordered and given. Bp remained stable. Magnesium 2G Iv was then given. Pt HR still remained in the 120's. 5 mg of cardizem ivp was given. Hr rate is now less then 100 and BP is stable in the 130's. 500 ml bolus of ns currently running. No new orders at this time.
--- NOTE | 2024-04-04 06:27 | PC.NURSE ---
EKG obtained at 04/04 0342 due to noticing one wasn't in the chart from start of rhythm change prior to nightshift 04/03 at 1900
--- NOTE | 2024-04-04 06:40 | ECG_ITS ---
APPROVED REPORT Exam: Resting ECG HR:106 bpm ECG Measurements Heart Rate 106 AXES QRSd 77 QRS -56 QT 340 T 64 QTc 402 Conclusion ATRIAL FIBRILLATION WITH RAPID VENTRICULAR RESPONSE PATTERN CONSISTENT WITH PULMONARY DISEASE LEFT ANTERIOR FASCICULAR BLOCK [QRS AXIS <= -45, QR IN I, RS IN II] MODERATE ST DEPRESSION [0.05+ mV ST DEPRESSION] ABNORMAL ECG UNCONFIRMED REPORT Electronically signed by : RANGEL ABDI, 04/04/2024 07:08:07
[2024-04-04 06:42] LABS: Basophils % 0.7 % (0.1-2.0); Eosinophils # 0.2 K/mm3 (0.0-0.4); Eosinophils % 3.4 % (0.1-12.0); Hematocrit 40.2 % (37.0-47.0); Hemoglobin 12.8 g/dL (12.2-16.2); Lymphocytes # 1.5 K/mm3 (0.7-4.5); Lymphocytes % 23.8 % (10-50); Mean Corpuscular HGB Conc 31.7 g/dL (31.8-35.4); Mean Corpuscular Hemoglobin 31.2 pg (27.0-31.2); Mean Corpuscular Volume 98.5 fl (81-99); Mean Platelet Volume 8.8 fl (7.4-10.4); Monocytes # 0.4 K/mm3 (0.1-1.0); Monocytes % 6.1 % (1.7-9.3); Neutrophils # 4.1 K/mm3 (1.8-7.8); Platelet Count 266 K/mm3 (142-424); Red Blood Count 4.08 M/mm3 (4.20-5.40); Red Cell Distribution Width 13.8 % (11.5-17.5); White Blood Count 6.3 K/mm3 (4.8-10.8)
[2024-04-04 06:47] LABS: Alanine Aminotransferase 19 U/L (12-78); Albumin Level 3.3 g/dl (3.5-5.0); Alkaline Phosphatase 72 U/L (38-126); Aspartate Amino Transferase 31 U/L (14-36); Bilirubin,Total 0.4 mg/dl (0.2-1.3); Blood Urea Nitrogen 21 mg/dl (7-17); Calcium 8.8 mg/dl (8.4-10.2); Carbon Dioxide 25 mmol/L (22.0-30.0); Chloride 113 mmol/L (98-107); Creatinine Clearance Estimated 48 mL/min (50-200); Estimated Glomerular Filt Rate 44 ml/min (>60); GFR (African American) 53 ML/MIN (>60); Globulin 3.4 g/dL (1.3-3.2); Glucose 121 mg/dl (74-100); Magnesium 2.2 mg/dl (1.6-2.3); Sodium 141 mmol/L (136-145); Total Protein,Serum 6.7 g/dl (6.3-8.2)
--- NOTE | 2024-04-04 07:57 | P.DS_ITS ---
General Admission date:: 04/02/24 HPI HPI HPI: Briefly, patient is a 73-year-old with past medical history of hypertension, renal insufficiency. Patient presents with vertigo, left-sided ataxia worsening over past 3 days. Also admits to some left-sided persistent weakness over past 72 hours. Reports cold symptoms x 1 week ago. States she fell last night secondary to left side ataxia. Also admits to some occasional tinnitus. Admits to similar episode of vertigo 10 years ago. CTA head/neck done in emergency room showed no definitive signs of acute CVA/TIA. Hospital Course Hospital Course Hospital Course: Patient presented to hospital with ataxia, left-sided weakness and diagnosed with acute CVA via MRI brain. Patient had echocardiogram done showing normal ejection fraction. Patient evaluated by physical therapy/Occupational Therapy daily during hospitalization, and deemed appropriate for inpatient short-term rehabilitation. Patient set up with [facility], and ultimately discharged to inpatient rehab 04/04/2024 without complications. Patient placed on high-dose Lipitor 80 mg, aspirin 81 mg, and Eliquis 5 mg p.o. twice daily for secondary stroke prevention. Patient's hemoglobin A1c 04/02/2024 equal 6.0 ruling out diabetes. Patient denies smoking as a risk factor for acute stroke. Patient initially placed on clopidogrel during hospitalization, but ultimately discontinued from clopidogrel after starting apixaban to decrease bleeding risk associated with triple antiplatelet therapy. Patient also evaluated for cardiac disorders during hospitalization. From 04/03 to 04/04, patient showed signs of atrial fibrillation on telemetry. Patient subsequently continued on Coreg 25 mg p.o. twice daily, and restarted on home diltiazem to 240 mg p.o. daily. Patient also acutely given IV Lopressor. Patient was rate controlled heart rate consistently less than 110 bpm by time of hospital disposition 04/04/2024. Patient advised to follow-up with both primary care physician and cardiology on outpatient basis for further atrial fibrillation management. A special note, patient seen by cardiology daily throughout hospitalization. Patient also suffered from hypertensive emergency issues during hospitalization. Patient's blood pressure initially allowed to remain high due to acute stroke pathology. Patient then given IV antihypertensives to normalize blood pressure. Patient's blood pressure then became low normal 04/02/2024 around midnight. Patient stated that my blood pressure goes up and down at home normally. Patient's antihypertensive medications rapidly decreased during low normal blood pressure readings. Secondary hypertension workup occurred during hospitalization. Patient had renal artery Doppler 04/02 within normal limits without renal artery stenosis. Patient also had aldosterone, renin, catecholamine, and other lab test pending at time of hospital disposition. Patient's secondary hypertension workup will be followed by cardiology and PCP on outpatient basis. Patient also suffered from renal insufficiency during hospitalization. Patient given cautious maintenance IV fluid hydration throughout hospitalization with condition steadily improving. Patient also treated for lower extremity rash during hospitalization with as needed hydrocortisone. Patient advised to continue treatment with primary care physician after hospital disposition. Exam Data for Last 24 hours Vital signs and Labs for Last 24 Hours: Temp Pulse Resp BP Pulse Ox O2 Del Method 98.3 F 108 H 17 112/80 95 Room Air 04/04/24 04:00 04/04/24 04:00 04/04/24 04:00 04/04/24 04:00 04/04/24 04:00 04/04/24 06:52 Laboratory Results - last 24 hr 04/02/24 12:12: Hct (Send Out) 36.4, Folate Hemolysate 445.0, RBC Folate 1223 04/03/24 05:49: Ferritin 148 04/04/24 06:08: WBC 6.3, RBC 4.08 L, Hgb 12.8, Hct 40.2, MCV 98.5, MCH 31.2, MCHC 31.7 L, RDW 13.8, Plt Count 266, MPV 8.8, Neut % (Auto) 66.0, Lymph % (Auto) 23.8, [place] % (Auto) 6.1, Eos % (Auto) 3.4, Baso % (Auto) 0.7, Neut # (Auto) 4.1, Lymph # (Auto) 1.5, [place] # (Auto) 0.4, Eos # (Auto) 0.2, Baso # (Auto) 0.0, Sodium 141, Potassium 4.0, Chloride 113 H, Carbon Dioxide 25, Anion Gap 7.0, BUN 21 H, Creatinine 1.20 H, Estimated Creat Clear 48, Estimated GFR 44 L, Est GFR ( Amer) 53 L, Glucose 121 H, Calcium 8.8, Magnesium 2.2 D, Total Bilirubin 0.4, AST 31, ALT 19, Alkaline Phosphatase 72, Total Protein 6.7, Albumin 3.3 L, Globulin 3.4 H, Albumin/Globulin Ratio 1.0 L I & O for Last 24 hours: Intake & Output 04/01/24 04/02/24 04/03/24 04/04/24 23:59 23:59 23:59 23:59 Intake Total 120 / 756 1656 / 1806 150 / 150 Output Total 1100 / 1100 900 / 1300 1000 / 1000 Balance -980 / -344 756 / 506 -850 / -850 Weight 72.178 kg 72.18 kg 73.164 kg *Routine HEENT Exam Head: Present normocephalic Eye: Present EOMI and normal accommodation ENT: Present mucous membranes moist *Routine Neck Exam Neck: Present supple and full ROM *Routine Respiratory Exam Respiratory: Present CTA bilaterally and normal respiratory effort *Routine Cardiovascular Exam Cardiovascular: Present RRR, Normal S1 and Normal S2 *Routine Abdominal Exam Abdominal: Present soft and normoactive bowel sounds *Routine Extremities Exam Extremities: Present normal capillary refill Comments: Left lower extremity muscle strength 3/5, with numbness noted *Routine Skin Exam Skin: Present intact and dry *Routine Neurological Exam Neurological: Present alert, oriented X3, CN II-XII intact and normal tone Results Data Completed and Pending Completed studies during hospitalization [Text1]: 04/02/2024 hemoglobin A1c equal 6.0 Renin, aldosterone, catecholamine levels pending at time of hospital disposition Labs on day of discharge: Labs from last 24 hours 04/04/24 04/03/24 04/02/24 06:08 05:49 12:12 WBC 6.3 RBC 4.08 L Hgb 12.8 Hct 40.2 Hct (Send Out) 36.4 MCV 98.5 MCH 31.2 MCHC 31.7 L RDW 13.8 Plt Count 266 MPV 8.8 Neut % (Auto) 66.0 Lymph % (Auto) 23.8 [place] % (Auto) 6.1 Eos % (Auto) 3.4 Baso % (Auto) 0.7 Neut # (Auto) 4.1 Lymph # (Auto) 1.5 [place] # (Auto) 0.4 Eos # (Auto) 0.2 Baso # (Auto) 0.0 Sodium 141 Potassium 4.0 Chloride 113 H Carbon Dioxide 25 Anion Gap 7.0 BUN 21 H Creatinine 1.20 H Estimated Creat Clear 48 Estimated GFR 44 L Est GFR ( Amer) 53 L Glucose 121 H Calcium 8.8 Magnesium 2.2 D Ferritin 148 Total Bilirubin 0.4 AST 31 ALT 19 Alkaline Phosphatase 72 Total Protein 6.7 Albumin 3.3 L Globulin 3.4 H Albumin/Globulin Ratio 1.0 L Folate Hemolysate 445.0 RBC Folate 1223 Impressions Impressions: 04/02/2024 renal artery duplex: IMPRESSION: No evidence of significant renal artery stenosis. CT angiogram or postcontrast MR angiogram would be more sensitive for evaluation of possible renal artery stenosis 04/02/2024 chest x-ray: No acute cardiopulmonary disease 04/02/2024 brain MRI: IMPRESSION: Age-appropriate atrophy and moderate chronic ischemic/gliotic changes. 18 mm focus of restricted diffusion in the right periventricular white matter consistent with an acute infarct. These results were given to Dr. Gunn, 04/02/2024 at 1:10 PM. 04/02/2024 echocardiogram Conclusion Low normal LV systolic function (LVEF 50%). Normal RV size and function. Moderate LA dilation. No significant valvular stenosis or regurgitation. 04/02/24 Head/neck CTA: IMPRESSION: No occlusion. Less than 50% stenosis proximal ICA bilaterally. DS: Diagnosis Discharge Diagnosis (1) Atrial fibrillation with RVR: Status: Acute Code(s): I48.91 - Unspecified atrial fibrillation (2) Acute CVA (cerebrovascular accident): Status: Acute Code(s): I63.9 - Cerebral infarction, unspecified (3) Hypertensive emergency: Status: Acute Code(s): I16.1 - Hypertensive emergency (4) Acute renal insufficiency: Status: Acute Code(s): N28.9 - Disorder of kidney and ureter, unspecified (5) Hypertension: Status: Acute Code(s): I10 - Essential (primary) hypertension Meds Home Medications and Allergies Home Medications ?Medication ?Instructions ?Recorded ?Confirmed ?Type carvedilol 25 mg tablet 25 mg PO BID 04/02/24 04/02/24 History chlorthalidone 25 mg tablet 25 mg PO DAILY 04/02/24 04/02/24 History diltiazem HCl 240 mg 240 mg PO DAILY 04/02/24 04/02/24 History capsule,extended release 24 hr, controlled (DILT-XR) apixaban 5 mg tablet (Eliquis) 5 mg PO BID #90 tabs 04/04/24 Rx aspirin 81 mg tablet,delayed 81 mg PO DAILY #90 tabs 04/04/24 Rx release atorvastatin 40 mg tablet 80 mg (2 x 40 mg) PO HS #90 tabs 04/04/24 Rx irbesartan 150 mg tablet 150 mg PO DAILY #90 tabs 04/04/24 Rx New Prescriptions to Start Prescriptions: apixaban [Eliquis] Gunn,Renato aspirin Gunn,[place] atorvastatin Gunn,Renato irbesartan Gunn,Renato Allergies Allergy/AdvReac Type Severity Reaction Status Date / Time Penicillins Allergy Verified 04/02/24 01:44 Discharge Plan Disposition Patient Disposition: Xfer Inpatient Rehab Fac Condition: Fair Discharge Order Discharge Orders: Discharge Order (Routine); Ordered 04/04/24 Ordered By: Renato Gunn Follow up Plan Follow up with: Miguel Ángel Justin DO [Referring] - 1 month (Acute CVA, A-fib with RVR please evaluate and advise...thx!) Shoaib Weinstein MD [Staff Physician] - 2 weeks (Status post admission for acute CVA and recurrent A-fib with RVR. Along Coreg/diltiazem/Eliquis) Provider,Referral, [Primary Care Provider] - 1 week Prescriptions/Medication Reconciliation: New aspirin 81 mg Tablet,Delayed Release (Dr/Ec) 81 mg PO DAILY Qty: 90 0RF irbesartan 150 mg Tablet 150 mg PO DAILY Qty: 90 0RF Eliquis 5 mg Tablet 5 mg PO BID Qty: 90 1RF atorvastatin 40 mg Tablet 80 mg PO HS Qty: 90 0RF Continued carvedilol 25 mg tablet 25 mg PO BID chlorthalidone 25 mg tablet 25 mg PO DAILY diltiazem HCl [DILT-XR] 240 mg capsule,ext.rel 24h degradable 240 mg PO DAILY Patient Comments: TAKE 1 CAPSULE BY MOUTH ONCE DAILY Discontinued irbesartan 300 mg tablet 300 mg PO DAILY Problem Reconciliation Problems Reviewed?: Yes Patient Discharge Instructions ACTIVITY: Continue current activity DIET: continue same diet Patient Instructions: Atrial Fibrillation, Essential Hypertension, DI for Stroke-Ischemic, DI for Atrial Fibrillation, DI for Malignant Hypertension, Cer ebellar Stroke Print Language: Hebrew Providers Primary Care Provider: Provider,Referral Admit Provider: Han Tariq Attending Provider: Han Tariq
[2024-04-04 08:00] VITALS: BP 108/82; PULSE 130; PULSE 92; RESP 19; TEMP 37.1; O2SAT 92
[2024-04-04] MEDS: HYDROCORTISONE 1% CREAM 30GM TUBE TP (08:31)
[2024-04-04] MEDS: ASPIRIN EC 81MG TABLET 81 MG PO (08:31)
[2024-04-04] MEDS: IRBESARTAN 150MG TAB 150 MG PO (08:31)
[2024-04-04] MEDS: CARVEDILOL 25MG TABLET 25 MG PO (08:31)
[2024-04-04] MEDS: CHLORTHALIDONE 25MG TABLET 25 MG PO (08:31)
[2024-04-04] MEDS: dilTIAZem ER 240MG CAPSULE 240 MG PO (08:32)
[2024-04-04] MEDS: APIXABAN 5MG TABLET 5 MG PO (08:45)
[2024-04-04 11:40] LABS: Adenovirus F 40/41, stool Not Detected (NotDetected); Astrovirus Not Detected (NotDetected); Campylobacter Not Detected (NotDetected); Clostridium Difficile A/B, PCR Not Detected (NotDetected); Cryptosporidium Not Detected (NotDetected); Cyclospora Cayetanesis Not Detected (NotDetected); Entamoeba histolytica Not Detected (NotDetected); Enteroaggregative E coli Not Detected (NotDetected); Enteropathogenic E coli Not Detected (NotDetected); Enterotoxigenic E coli Not Detected (NotDetected); Giardia lamblia Not Detected (NotDetected); Norovirus Not Detected (NotDetected); Plesimonas Shigalloides, PCR Not Detected (NotDetected); Rotavirus A Not Detected (NotDetected); Salmonella, PCR Not Detected (NotDetected); Sapovirus Not Detected (NotDetected); Shiga-like toxin E coli Not Detected (NotDetected); Shigella Enterovasive E coli Not Detected (NotDetected); Vibrio Cholerae Not Detected (NotDetected); Vibrio, PCR Not Detected (NotDetected); Yersinia Entercolitica, PCR Not Detected (NotDetected)
[2024-04-18 16:00] LABS: Renin Activity, Plasma 0.378
== END 2024-04-04 12:07 | DRG 65 ==
LOC: ER 03:22 → 2ND 07:16
PROVIDERS: Internal Medicine; Nurse Practitioner Family; Physician Assistant; Admitting Provider Internal Medicine Adolescent Medicine; Emergency Provider Emergency Medicine; Visit Provider Internal Medicine Adolescent Medicine
DX: I63.9 Cerebral infarction, unspecified (principal); E46 Unspecified protein-calorie malnutrition; I16.1 Hypertensive emergency; G81.94 Hemiplegia, unspecified affecting left nondominant side; Z85.41 Personal history of malignant neoplasm of cervix uteri; I10 Essential (primary) hypertension; N28.9 Disorder of kidney and ureter, unspecified; Z68.25 Body mass index [BMI] 25.0-25.9, adult; I95.9 Hypotension, unspecified; R27.0 Ataxia, unspecified; I48.91 Unspecified atrial fibrillation
CPT/HCPCS: 36415; 70450; 70496; 70498; 70551; 71045; 80053; 80061; 80307; 80320; 81001; 82088; 82728; 82747; 83036; 83735; 83880; 84244; 84443; 84484; 85014; 85025; 85610; 85730; 87086; 87506; 93005; 93306; 93976; 97110; 97116; 97163; 97166; 97530; 99291; G0480; J0360; J0696; J1650; J2405; J3475; J7030; J7120; Q9967

== ENCOUNTER 2024-05-07 11:51 | Outpatient (CLI) | payer MEDICARE, OTHER, SELFPAY ==
--- NOTE | 2024-05-07 | CA_ITS ---
APPROVED REPORT Exam: Pharmacologic Technologist: Debbie Oliver Ht: 5 ft 6 in Wt: 153 lbs BSA: 1.78 m2 HR: 54 bpm BP: 187/78 mmHg Indications: Abnormal ekg Stress Test Details Test: LEXISCAN HR Resting HR: 57 bpm Max Heart Rate (APMHR): 147 bpm Max HR Achieved: 82 bpm Target HR (85% APMHR): 125 bpm % of APMHR: 56 Recovery HR: 69 bpm BP Resting BP: 187.0/78.0 mmHg Max BP: 187.0/78.0 mmHg Recovery BP: 161.0/69.0 mmHg ECG Resting ECG: Sinus bradycardia Stress ECG: No significant ST changes Arrhythmia: PACs, PVCs Clinical Exercise duration: 04:04 min Highest Stage Achieved: Stress ECG Conclusion Symptoms: None Arrhythmias/Ectopy: PVC, PAC ST-T Changes: No significant ST changes Conclusion: EKG unremarkable due to Lexiscan infusion. Myoview images reported separately. Test Summary REST . . . . . . . Resting REST 03:23 . . 57 . 187/ 78 . . Stage 1 . . . . . . . Myoview Injected Stage 1 01:00 . . 70 . . . . Stage 2 01:00 . . 79 . 154/ 71 . . Stage 3 01:00 . . 76 . 139/ 73 . . Stage 4 01:00 . . 79 . . . . Stage 4 01:04 . . 73 . . . Stop exercise at 04:04 RECOVERY 01:00 . . 76 . . . . RECOVERY 02:00 . . 70 . 166/ 67 . . RECOVERY 03:00 . . 68 . 161/ 69 . . RECOVERY 04:00 . . 69 . 161/ 69 . . RECOVERY 05:00 . . 65 . 161/ 69 . . RECOVERY 05:23 . . 65 . 163/ 71 . . Electronically signed by : Melba Taveras MD 05/08/2024 11:14:32
--- NOTE | 2024-05-07 11:52 | NM_ITS ---
APPROVED REPORT Exam: Nuclear Stress Test Indication: dysrhythmia, htn, palpitations, fatigue Patient Location: Outpatient Stress Tech: Debibe Oliver MS Tech:Sunni Cruz GUY RT (R)(N)(M) Ht: 5 ft 6 in Wt: 152 lbs Bra Size: d HR: 54 bpm BP: 187/78 mmHg BSA: 1.78 m2 TID: 0.97 BMI: 24.5 History: dysrhythmia, htn, palpitations, fatigue Procedure: Patient received 0.4 mg of intravenous Lexiscan, resting heart rate 54 bpm, resting blood pressure 187/78 mmHg, with Lexiscan maximum heart rate achieved was 80 bpm which is % of the maximum predicted heart rate and blood pressure was 154/71 mmHg. With Lexiscan, patient denied any complaint of chest pain. Cardiac Stress and Resting SPECT Images: Cardiac Stress and Resting SPECT images were obtained using technetium 99m Myoview 32.0 mCi stress and 10.21 mCi at rest. Resting and stress imaging in supine and prone positions demonstrate a small sized, moderate, fixed perfusion defect in the apical LV wall. Gated imaging demonstrates normal global and regional LV systolic function. LVEF is calculated at 64%. Conclusion: Small sized, moderate, fixed perfusion defect in the apical LV wall. Gated imaging demonstrates normal global and regional LV systolic function. LVEF is calculated at 64%. Electronically signed by : Melba Taveras MD 05/08/2024 11:16:54
[2024-05-07] MEDS: REGADENOSON 0.4MG/5ML SYRINGE 0.4 MG IV (13:30)
[2024-05-07] MEDS: SODIUM CHLORIDE 0.9% 10ML SYR (RAD ONLY) 10 ML IV ×2 (14:00)
[2024-05-07] MEDS: ISOTOPE MYOVIEW (PER STUDY) 1 DOSE IV (14:00)
== END 2024-05-07 23:59 | disposition home or self-care (01) ==
LOC: RAD 11:52
PROVIDERS: PCP Internal Medicine; Visit Provider Internal Medicine
DX: R94.31 Abnormal electrocardiogram [ECG] [EKG] (principal)
CPT/HCPCS: 78451; 78452; 93017; 93018; A9502; J2785

== ENCOUNTER 2024-05-13 10:00 | Outpatient (RCR) | payer MEDICARE, OTHER, SELFPAY ==
--- NOTE | 2024-05-08 12:51 | HMH.PTOPEV ---
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 Upon d /c from acute care, pt went to [facility] where she rehabbed to home. Pt presents to OP PT with complaints of L-sided weakness and balance deficits. Pt ambulated into [facility] outpatient clinic using a RW. Pt reports she wishes to wean off of her RW. Pt denies any falls since her CVA. Reports sensation is intact. Pt reports she does perform exercises frequently at home (bicep curls, hydro plant operator putty, punches, LAQs, arm raises, etc.) Pt's goal for PT: to get back strength as much as I can so I am myself again PMH: History of cervical cancer, Hypertension New diagnosis of cancer in past 12 No months? Chief Complaint Weakness Prior Functional Limitations None Current Functional Limitations Recreation Activity,Walking, Stairs,Balance Shoulder/Elbow Eval Shoulder Objective Measurements Shoulder MMT Left Shoulder Abduction Strength Grade 4- Good- Shoulder Extension Strength Grade 4- Good- Shoulder Flexion Strength Grade 4- Good- Shoulder External Rotation Strength 4 Good Grade Shoulder Internal Rotation Strength 4 Good Grade Elbow Objective Measurements Hip/Knee Eval MMT left Hip Flexion Strength Grade 4- Good- Hip Abduction Strength Grade 4- Good- Hip Adduction Strength Grade 4 Good Hip Extension Strength Grade 4- Good- Knee Extension Strength Grade 4 Good Knee Flexion Strength Grade 4- Good- Balance Eval Hx of Falls Hx Falls No Number in last 6 months 0 Gait/Posture Asssessment General Gait Observation Narrow Based Gait Assistive Devices Rolling / Wheeled Walker Level of Transfer Assist Standby Assistance Timed Up and Go Test 1. Is the Timed Up and Go test result > yes or = to 12 seconds? Dynamic Gait Index Test Protocol Gait Level Surface Mild Impairment Query Text: Instructions: Walk at your normal speed from here to the next nicole (20'). Grading: Nicole the lowest category that applies. Change in Gait Speed Moderate Impairment Query Text: Instructions: Begin walking at your normal pace (for 5'), when I tell you go , walk as fast as you can (for 5'). When I tell you slow , walk as slowly as you can (for 5'). Grading: Nicole the lowest category that applies. Gait with Horizontal Head Turns Moderate Impairment Query Text: Instructions: Begin walking at your normal pace. When I tell you to look right , keep walking straight, but turn you head to the right. Keep looking to the right unit I tell you look left , then keep walking straight and turn your head to the left. Keep your head to the left until I tell you look straight , then keep walking straight, but return you head to the center. Grading: Nicole the lowest category that applies. Gait with Vertical Head Turns Moderate Impairment Query Text: Instructions: Begin walking at your normal pace. When I tell you to look up , keep walking staight, but tip your head up. Keep looking up until I tell you to look down , then keep walking straight and tip your head down. Keep your head down until I tell you look straight , then keep walking straight, but return your head to the center. Grading: Nicole the lowest category that applies. Gait and Pivot Turn Mild Impairment Query Text: Instructions: Begin walking at your normal pace. When I tell you turn and stop , turn as quickly as you can to face the opposite direction and stop. Grading: Nicole the lowest category that applies. Step Over Obstacle Mild Impairment Query Text: Instructions: Begin walking at your normal speed. When you come to the shoebox, step over it, not around it and keep walking. Grading: Nicole the lowest category that applies. Step Around Obstacles Mild Impairment Query Text: Instructions: Begin walking at normal speed. When you come to the first cone (about 6' away), walk around the right side of it. When you come to the second cone (6' past first cone), walk around it to the left. Grading: Nicole the lowest category that applies. Steps Mild Impairment Query Text: Instructions: Walk up these stairs as you would at home. At the top, turn around and walk down. Grading: Nicole the lowest category that applies. Scoring Dynamic Gait Index Score 13 Miscellaneous Dx PT Eval Objective Objective 5 x STS: 17 seconds with RW. TU sec with RW. DGI: no RW used. Miscellaneous Goals Short Term Goals In 4 weeks, pt will: 1) Perform the TUG test with RW in 15 seconds to decrease fall risk 2) Improve DGI score by 2 points to improve safety with gait 3) Ambulate across BB with at most CGA 4) Be IND with HEP Half-Way Goals In 8 weeks, pt will: 1) Perform the TUG test in 12 seconds to decrease fall risk 2) Improve DGI score to 19 points to improve safety with gait 3) Negotiate 8 6 hurdles with SUP and no LOB noted 4) Be IND with HEP 5) Demo 5/5 LLE strength and at least 4+/5 LUE strength Outpatient Therapy Assessment Impairments Problems/Impairmments Impaired Strength,Impaired Transfers,Impaired Gait Pattern,Impaired Walking, Impaired Standing,Impaired Lifting,Impaired Stair Climbing,Impaired Stepping on Uneven Surface,Impaired Squatting,Impaired Recreational Activities, Impaired Balance,Impaired DGI Score,Impaired TUG Time Prognosis Rehab Potential Good Comment Pt presents s/p CVA on 04/02/24 . Pt demo'd good- L sided strength globally and impaired balance. Pt demo'd multiple small LOB throughout eval when not using RW (required CGA- Min A). Pt is classified as a fall risk and would benefit from skilled OP PT to address strength, gait, and balance impairments. Clinical Impression Consistent with Diagnosis Yes Consistent with CVA Outpatient Therapy Plan of Care Treatment Plan May Include Therapeutic Exercise Including Home Yes Exercise Program Manual Therapy Techniques Yes Neuromuscular Re-education Yes Therapeutic Activities to Return to Yes Previous Functional/Work Level Gait Training Yes ADL/Self Care Education Yes Eval/Re-Eval Yes Frequency Times per week 2-3x Duration Number of Weeks 6-8 weeks Addendums This patient is a candidate for social No or vocational rehab? Patient/Guardian verbally acknowledges Yes understanding of treatment program and consents to further treatment? Patient/Guardian verbally acknowledges Yes understanding of diagnosis, prognosis and goals for treatment? Eval Complexity PT Charges 53795 - Moderate Complexity PHYSICIAN CERTIFICATION: I certify the specified therapy services for Stacey Salcedo are required, authorized, and reviewed every 30 days.
== END 2024-05-13 23:59 | disposition home or self-care (01) ==
LOC: PT 10:00
PROVIDERS: Visit Provider Internal Medicine
DX: R53.1 Weakness (principal); I63.9 Cerebral infarction, unspecified
CPT/HCPCS: 97110; 97163; 97530

== ENCOUNTER 2024-05-15 15:35 | Outpatient (CLI) | payer MEDICARE, OTHER, SELFPAY ==
[2024-05-15 19:00] LABS: Creatinine,Urine Random 308 mg/dL (Not Estab.)
[2024-05-15 19:29] LABS: Chloride 105 mmol/L (98-107); Sodium 141 mmol/L (136-145)
[2024-05-15 19:30] LABS: Potassium 4.4 mmoL/L (3.5-5.1)
[2024-05-15 19:32] LABS: Alanine Aminotransferase 17 U/L (12-78); Albumin/Globulin Ratio 1.3 (1.1-1.8); Anion Gap 11.4 mEq/L (5-15); Aspartate Amino Transferase 23 U/L (14-36); Blood Urea Nitrogen 25 mg/dl (7-17); Carbon Dioxide 29 mmol/L (22.0-30.0); Estimated Glomerular Filt Rate 37 ml/min (>60); GFR (African American) 45 ML/MIN (>60); Globulin 3.1 g/dL (1.3-3.2); Microalbumin/Creatinine Ratio 89.4; Total Protein,Serum 7.1 g/dl (6.3-8.2)
[2024-05-15 19:33] LABS: Alkaline Phosphatase 81 U/L (38-126); Bilirubin,Total 0.6 mg/dl (0.2-1.3); Calcium 9.6 mg/dl (8.4-10.2); Chol/HDL Ratio 2.9 (1-3.5); Cholesterol 141 mg/dl (140-200); Glucose 115 mg/dl (74-100); HDL Cholesterol 49 mg/dl (40-60); Triglycerides 121 mg/dl (30-150); VLDL Cholesterol 24 mg/dL (0-40)
[2024-05-15 19:37] LABS: 25-OH Vitamin D, Total 28.1 ng/mL (30-100)
[2024-05-15 19:51] LABS: Direct LDL Cholesterol 58.85 mg/dL (100-129)
[2024-05-15 19:56] LABS: Hemoglobin A1C 5.6 % (4.0-6.0)
[2024-05-15 19:58] LABS: Thyroid Stimulating Hormone < 0.02 uIU/mL (0.465-4.68)
== END 2024-05-15 23:59 | disposition home or self-care (01) ==
LOC: LAB.DROPOF 05-16 12:14
PROVIDERS: PCP Internal Medicine; Visit Provider Internal Medicine
DX: I10 Essential (primary) hypertension (principal); E55.9 Vitamin D deficiency, unspecified; Z13.1 Encounter for screening for diabetes mellitus; E66.3 Overweight; R53.83 Other fatigue
CPT/HCPCS: 80053; 80061; 82043; 82306; 82570; 83036; 84443

== ENCOUNTER 2024-05-23 11:08 | Outpatient (CLI) | payer MEDICARE, OTHER, SELFPAY ==
[2024-05-23 13:56] LABS: PHA INR Fingerstick 1.5 (0.9-1.1)
== END 2024-05-23 14:01 ==
LOC: ACC 11:09
PROVIDERS: PCP Internal Medicine; Visit Provider Internal Medicine
DX: Z79.01 Long term (current) use of anticoagulants (principal); I48.91 Unspecified atrial fibrillation
CPT/HCPCS: 85610; 99211; G0463

== ENCOUNTER 2024-05-27 12:34 | Outpatient (CLI) | payer MEDICARE, OTHER, SELFPAY ==
[2024-05-27 12:54] LABS: PHA INR Fingerstick 3.3 (0.9-1.1)
== END 2024-05-27 13:02 ==
LOC: ACC 12:36
PROVIDERS: PCP Internal Medicine; Visit Provider Internal Medicine
DX: Z79.01 Long term (current) use of anticoagulants (principal); I48.91 Unspecified atrial fibrillation
CPT/HCPCS: 85610; 99211; G0463

== ENCOUNTER 2024-06-10 13:35 | Outpatient (CLI) | payer MEDICARE, OTHER, SELFPAY | END 2024-06-10 16:30 | PROVIDERS: PCP Internal Medicine; Visit Provider Internal Medicine | DX: Z79.01 Long term (current) use of anticoagulants (principal); I48.91 Unspecified atrial fibrillation | CPT/HCPCS: 36415; 85610; 99211; G0463 ==

== ENCOUNTER 2024-06-14 13:02 | Outpatient (CLI) | payer MEDICARE, OTHER, SELFPAY ==
[2024-06-14 14:31] LABS: PHA INR Fingerstick 4.7 (0.9-1.1)
== END 2024-06-14 14:33 ==
LOC: LAB 13:06 → ACC 13:08
PROVIDERS: PCP Internal Medicine; Visit Provider Internal Medicine
DX: Z79.01 Long term (current) use of anticoagulants (principal); I48.91 Unspecified atrial fibrillation
CPT/HCPCS: 85610; 99211; G0463

== ENCOUNTER 2024-06-17 13:01 | Outpatient (CLI) | payer MEDICARE, OTHER, SELFPAY ==
[2024-06-17 14:41] LABS: PHA INR Fingerstick 1.6 (0.9-1.1)
== END 2024-06-17 14:48 ==
LOC: ACC 13:02
PROVIDERS: PCP Internal Medicine; Visit Provider Internal Medicine
DX: Z79.01 Long term (current) use of anticoagulants (principal); I48.91 Unspecified atrial fibrillation
CPT/HCPCS: 85610; 99211; G0463

== ENCOUNTER 2024-06-24 12:51 | Outpatient (CLI) | payer MEDICARE, OTHER, SELFPAY ==
[2024-06-24 14:02] LABS: PHA INR Fingerstick 1.8 (0.9-1.1)
== END 2024-06-24 14:03 ==
LOC: ACC 12:52
PROVIDERS: PCP Internal Medicine; Visit Provider Internal Medicine
DX: Z79.01 Long term (current) use of anticoagulants (principal); I48.91 Unspecified atrial fibrillation
CPT/HCPCS: 85610; 99211; G0463

== ENCOUNTER 2024-07-04 11:14 | Outpatient (CLI) | payer MEDICARE, OTHER, SELFPAY ==
[2024-07-04 11:52] LABS: PHA INR Fingerstick 2.4 (0.9-1.1)
== END 2024-07-04 11:53 ==
LOC: ACC 11:16
PROVIDERS: PCP Internal Medicine; Visit Provider Internal Medicine
DX: Z79.01 Long term (current) use of anticoagulants (principal); I48.91 Unspecified atrial fibrillation
CPT/HCPCS: 85610; 99211; G0463

== ENCOUNTER 2024-08-01 11:14 | Outpatient (CLI) | payer MEDICARE, OTHER, SELFPAY ==
[2024-08-01 11:43] LABS: PHA INR Fingerstick 2.2 (0.9-1.1)
== END 2024-08-01 11:45 ==
LOC: ACC 11:16
PROVIDERS: PCP Internal Medicine; Visit Provider Internal Medicine
DX: Z79.01 Long term (current) use of anticoagulants (principal); I48.91 Unspecified atrial fibrillation
CPT/HCPCS: 85610; 99211; G0463

== ENCOUNTER 2024-08-29 14:56 | Outpatient (CLI) | payer MEDICARE, OTHER, SELFPAY | END 2024-08-29 23:59 | disposition home or self-care (01) | LOC: RT 14:58 | PROVIDERS: PCP Family Medicine; Visit Provider Internal Medicine | DX: I48.0 Paroxysmal atrial fibrillation (principal); R94.31 Abnormal electrocardiogram [ECG] [EKG] | CPT/HCPCS: 93270 ==

== ENCOUNTER 2024-09-12 10:31 | Outpatient (CLI) | payer MEDICARE, OTHER, SELFPAY ==
[2024-09-12 10:50] LABS: PHA INR Fingerstick 2.3 (0.9-1.1)
== END 2024-09-12 10:53 ==
LOC: ACC 10:33
PROVIDERS: PCP Family Medicine; Visit Provider Internal Medicine
DX: Z79.01 Long term (current) use of anticoagulants (principal); I48.91 Unspecified atrial fibrillation
CPT/HCPCS: 85610; 99211; G0463

== ENCOUNTER 2024-09-27 10:17 | Outpatient (CLI) | payer MEDICARE, OTHER, SELFPAY ==
[2024-09-27 18:25] LABS: Basophils % 0.7 % (0.1-2.0); Eosinophils # 0.2 K/mm3 (0.0-0.4); Eosinophils % 4.1 % (0.1-12.0); Hemoglobin 9.4 g/dL (12.2-16.2); Lymphocytes # 1.3 K/mm3 (0.7-4.5); Lymphocytes % 23.9 % (10-50); Mean Corpuscular HGB Conc 29.4 g/dL (31.8-35.4); Mean Corpuscular Hemoglobin 26.7 pg (27.0-31.2); Mean Corpuscular Volume 90.9 fl (81-99); Mean Platelet Volume 10.6 fl (7.4-10.4); Monocytes # 0.7 K/mm3 (0.1-1.0); Monocytes % 13.1 % (1.7-9.3); Neutrophils # 3.1 K/mm3 (1.8-7.8); Neutrophils % 58.2 % (37.0-80.0); Platelet Count 278 K/mm3 (142-424); Red Blood Count 3.52 M/mm3 (4.20-5.40); Red Cell Distribution Width 16.8 % (11.5-17.5); White Blood Count 5.4 K/mm3 (4.8-10.8)
[2024-09-27 19:20] LABS: Alanine Aminotransferase 21 U/L (12-78); Albumin Level 4.1 g/dl (3.5-5.0); Albumin/Globulin Ratio 1.4 (1.1-1.8); Alkaline Phosphatase 86 U/L (38-126); Aspartate Amino Transferase 27 U/L (14-36); Bilirubin,Total 0.7 mg/dl (0.2-1.3); Blood Urea Nitrogen 20 mg/dl (7-17); Calcium 9.3 mg/dl (8.4-10.2); Carbon Dioxide 28 mmol/L (22.0-30.0); Chol/HDL Ratio 2.6 (1-3.5); Cholesterol 176 mg/dl (140-200); Estimated Glomerular Filt Rate 44 ml/min (>60); GFR (African American) 53 ML/MIN (>60); Glucose 100 mg/dl (74-100); HDL Cholesterol 69 mg/dl (40-60); Potassium 4.2 mmoL/L (3.5-5.1); Sodium 139 mmol/L (136-145); Total Protein,Serum 7.1 g/dl (6.3-8.2); Triglycerides 87 mg/dl (30-150); VLDL Cholesterol 17 mg/dL (0-40)
[2024-09-27 19:32] LABS: Direct LDL Cholesterol 79.65 mg/dL (100-129)
[2024-09-27 20:32] LABS: Anion Gap 9.2 mEq/L (5-15); Chloride 106 mmol/L (98-107)
[2024-09-27 20:35] LABS: Thyroid Stimulating Hormone 1.56 uIU/mL (0.465-4.68)
== END 2024-09-27 23:59 | disposition home or self-care (01) ==
LOC: LAB.DROPOF 09-30 10:18
PROVIDERS: PCP Family Medicine; Visit Provider Family Medicine
DX: I10 Essential (primary) hypertension (principal)
CPT/HCPCS: 80053; 80061; 84443; 85025

== ENCOUNTER 2024-10-24 10:30 | Outpatient (CLI) | payer MEDICARE, OTHER, SELFPAY ==
[2024-10-24 12:05] LABS: PHA INR Fingerstick 1.9 (0.9-1.1)
== END 2024-10-24 13:09 ==
LOC: ACC 10:31
PROVIDERS: PCP Family Medicine; Visit Provider Internal Medicine
DX: Z79.01 Long term (current) use of anticoagulants (principal); I48.91 Unspecified atrial fibrillation
CPT/HCPCS: 85610; 99211; G0463

== ENCOUNTER 2024-11-01 11:41 | Outpatient (CLI) | payer MEDICARE, OTHER, SELFPAY ==
[2024-11-01 17:15] LABS: Basophils # 0.1 K/mm3 (0-0.2); Eosinophils # 0.3 K/mm3 (0.0-0.4); Eosinophils % 5.3 % (0.1-12.0); Hematocrit 31.9 % (37.0-47.0); Hemoglobin 9.8 g/dL (12.2-16.2); Lymphocytes # 1.4 K/mm3 (0.7-4.5); Mean Corpuscular HGB Conc 30.7 g/dL (31.8-35.4); Mean Corpuscular Hemoglobin 27.5 pg (27.0-31.2); Mean Corpuscular Volume 89.6 fl (81-99); Mean Platelet Volume 10.9 fl (7.4-10.4); Monocytes # 0.6 K/mm3 (0.1-1.0); Neutrophils # 2.8 K/mm3 (1.8-7.8); Neutrophils % 54.1 % (37.0-80.0); Platelet Count 282 K/mm3 (142-424); Red Blood Count 3.56 M/mm3 (4.20-5.40); Red Cell Distribution Width 16.1 % (11.5-17.5); White Blood Count 5.1 K/mm3 (4.8-10.8)
[2024-11-01 17:51] LABS: Iron 56 ug/dL (37-170)
[2024-11-01 18:02] LABS: Total Iron Binding Capacity 424 ug/dL (265-497)
== END 2024-11-01 23:59 | disposition home or self-care (01) ==
LOC: LAB.DROPOF 11-02 11:52
PROVIDERS: PCP Family Medicine; Visit Provider Family Medicine
DX: I10 Essential (primary) hypertension (principal); E55.9 Vitamin D deficiency, unspecified
CPT/HCPCS: 83540; 83550; 85025

== ENCOUNTER 2024-12-06 10:34 | Outpatient (CLI) | payer MEDICARE, OTHER, SELFPAY ==
[2024-12-06 13:18] LABS: PHA INR Fingerstick 2.4 (0.9-1.1)
== END 2024-12-06 12:57 ==
LOC: ACC 10:35
PROVIDERS: PCP Family Medicine; Visit Provider Internal Medicine
DX: Z79.01 Long term (current) use of anticoagulants (principal); I48.91 Unspecified atrial fibrillation
CPT/HCPCS: 85610; 99211; G0463

== ENCOUNTER 2025-01-17 11:03 | Outpatient (CLI) | payer MEDICARE, OTHER, SELFPAY ==
--- OUTSIDE RECORDS SUMMARY | 2023-12-11 06:15 | XMS_ITS ---
Author Organization Kalyan Address 1210 [facility] [address] [place] [phone] Care Team Providers Care Screw Supervisor Name Role Phone Allison Renteriaian Primary Care Provider Zaynab Concepcion Unavailable [phone] Allergies Allergen (clinical drug ingredient) Drug/Non Drug [...] Location Date Provider Diagnosis [place] 12[address] [place] [facility] [address] [place] [phone] 12/11/2023 Zaynab Concepcion Essential hypertensi on I10 [...] Notes * Jono SALCEDOisDOB:1950 (74 yo F)Acc No.[id number]:12/11/2023 Patient: Stacey MARRUFO Provider: JAZMIN Avendaño :1950 A ge:73 Y S ex:Female Date:12/11/2023 Address:[address] [place] [address], [place] [id number] Pcp:Kiran Renteria Subjective: * Chief Complaints: * [...] ypertension, Chronic kidney disease, Cervical Cancer dx. 9385-9952, followed by LOG CHIPPER, Declines Flu and Pneumonia vaccines 2017, Declines [...] healthy, alert, pleasant, well nourished and hydrated. Heart: RRR. Lungs: CTAB A&P. Neurologic Exam: alert and oriented. Skin: left lower neck with 2 sutures removed; wound healed. Extremities: no leg edema. Assessment: * Assessment: 1. E ssential hypertension - I10 (Primary) Plan: * Treatment: * Follow Up: 4 Weeks * Billing Information: * Visit Code: 39476 Office Visit, Est Pt., Level 3. * Procedure Codes: * Electronic signature of Destiny Concepcion APRN on 01/17/2025 at 11:06 AM EDT Sign off status: Pending * Provider: JAZMIN Avendaño Date: 0 12/11/2023 Generated for Bill fields/Elena/Kari on: 0 01/17/2025 11:06 AM EDT History and Physical Notes * [...]
--- OUTSIDE RECORDS SUMMARY | 2024-01-08 06:30 | XMS_ITS ---
Author Organization [facility] Address [address] [facility] [address] [place] [id number] Care Team Providers Care Stem Lead Former Name Role Phone Myra Kiran Primary Care Provider [phone] Zaynab Concepcion Unavailable [phone] Allergies Allergen (clinical drug ingredient) Drug/Non Drug [...] Provider Diagnosis [place] [address] [place] [id number] 01/08/2024 Zaynab Concepcion Essential hypertensi on I10 [...] Notes * Jono SALCEDOisDOB:1950 (74 yo F)Acc No.[id number]:01/08/2024 Patient: Stacey MARRUFO Provider: JAZMIN Avendaño :1950 A ge:73 Y S ex:Female Date:01/08/2024 Address:[address] [place] [id number] Pcp:Kiran Renteria Subjective: * Chief Complaints: * [...] ypertension, Chronic kidney disease, Cervical Cancer dx. 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 Heart: RRR. Lungs: CTAB A&P. Neurologic Exam: alert and oriented. Extremities: no leg edema. Assessment: * Assessment: 1. E ssential hypertension - I10 (Primary) 2 . P olyarthralgia - M25.50? Plan: * Treatment: 2. P olyarthralgia Notes: encouraged tylenol and heat application prn * Follow Up: 3 Months,and prn * Billing Information: * Visit Code: 94903 Office Visit, Est Pt., Level 3. * Procedure Codes: * Electronic signature of Destiny chowdhuryjessica Concepcion APRN on 01/17/2025 at 11:06 AM EDT Sign off status: Pending * Provider: JAZMIN Avendaño Date: 01/08/2024 Generated for Bill fields/Elena/Kamleshitting on: 0 01/17/2025 11:06 AM EDT History [...]
--- OUTSIDE RECORDS SUMMARY | 2024-04-09 05:30 | XMS_ITS ---
Author Organization [facility] Address 1210 [facility] [address] [place] [phone] Care Team Providers Care Supervisor Vacuum Metalizing Name Role Phone Kiran Renteria Primary Care Provider [phone] Zaynab Concepcion [phone] Allergies Allergen (clinical drug ingredient) Drug/Non Drug Allergy documented on EMR Reaction Allergy Type Onset Date Status Penicillin rash Drug Allergy 11/30/2020 Activ e REASON FOR VISIT 3 month check, Needs labs, mammogram, bone density screening, & colon cancer screening Encounters Encounter Location Date Provider Diagnosis [facility] 1210 [facility] [address] [place] [phone] 04/09/2024 Zaynab Concepcion Plan Of Treatment No Information Progress Notes * Jono SALCEDOisDOB:1950 (74 yo F)Acc No.[id number]:04/09/2024 Progress Notes Patient: Stacey MARRUFO Provider: JAZMIN Avendaño :1950 A ge:73 Y S ex:Female Date:04/09/2024 Address:[address] [place], [place] [address], [id number] Pcp:Kiran Renteria Subjective: * Chief Complaints: * [...] ypertension, Chronic kidney disease, Cervical Cancer dx. 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, Declines Flu and Pneumonia vaccines 2017, Declines [...] * Vitals: Assessment: Plan: * Treatment: * Billing Information: * Visit Code: * Procedure Codes: * Electronic signature of Destiny Concepcion APRN on 01/17/2025 at 11:06 AM EDT Sign off status: Pending * Provider: JAZMIN Avendaño Date: 0 04/09/2024 Generated for Bill fields/Elena/Kamleshitting on: 0 01/17/2025 11:06 AM EDT History and Physical Notes * HPI (History of Present Illness) Category Sub-Category Detail Notes Category Not es Cardiology Blood Pressure Elevated Pt presents today for a 3 month check up on hypertension Pt sts she needs labs, mammogram, bone density screening, and colon cancer screening
--- OUTSIDE RECORDS SUMMARY | 2025-01-17 11:06 | XMS_ITS | Clinical Summary ---
Author Organization Healthcare Address [address] [place] [address] Care Team Providers Care Comic Book Writer Name Role Phone Kiran Renteria MD Primary Care Provider + [phone] Allergies Active Allergy Reactions Criticality Noted Date Comments Penicillins Rash Low 06/03/2021 Medications carvedilol (Coreg) 25 MG tablet 2 (two) times a day. 1 Active Zinc Sulfate (ZINC 15 PO) Take by mouth. Active ascorbic acid (vitamin C) 500 MG tablet Take 500 mg by mouth 1 (one) time each day. Active cholecalciferol (cholecalciferol) 10 MCG (400 UNIT) tablet Take 400 Units by mouth 1 (one) time each day. Active irbesartan (Avapro) 150 MG tabletIndications :Hypertensive chronic kidney disease with stage 1 through stage 4 chronic kidney disease, or unspecified chronic kidney disease Take 2 tablets (300 mg total) by mouth 1 (one) time each day. 60 tablet 1 Active cloNIDine (Catapres) 0.1 MG tablet 1 Active Dilt-XR 180 MG 24 hr capsule 1 Active chlorthalidone (Hygroton) 25 MG tabletIndications :Essential hypertension Take 0.5 tablets (12.5 mg total) by mouth 1 (one) time each day. 15 tablet 5 1 Active Active Problems Problem Noted Date Diagnosed Date Stage 3b chronic kidney disease 07/05/2021 Essential hypertension 07/05/2021 Family History Medical History Relation Name Comments Aortic aneurysm Father Diabetes Father Hypertension Father Emphysema Mother Relation Name Status Comments Father Mother Social History Tobacco Use Types Packs/Day Years Used Date Smoking Tobacco: Former Smokeless Tobacco: Never Alcohol Use Standard Drinks/Week Comments Never 0 (1 standard drink = 0.6 oz pur e alcohol) Comments Unknown Sex and Gender Information Value Date Recorded Sex Assigned at Not on file Legal Sex Female 7:58 PM EDT Gender Identity Not on file Sexual Orientation Not on file Last Filed Vital Signs Vital Sign Reading Time Taken Comments Blood Pressure 190/75 07/05/2021 1:27 PM EST Pulse 70 07/05/2021 1:27 PM EST Temperature - - Respiratory Rate - - Oxygen Saturation - - Inhaled Oxygen Concentration - - Weight 71.7 kg (158 lb) 07/05/2021 1:27 PM EST Height - - Body Mass Index - - Plan of Treatment Health Maintenance Due Date Last Done Comments [facility]-Bone Density Scan 1950 [facility]-Depression Screening 1950 [facility]-/Child/Adol SDOH Screenings 1950 [facility]- SDOH Screenings 1968 [facility]-Adult SDOH Screenings 1968 [facility]-DTaP,Tdap,and Td Vaccine s (1 - Tdap) 1969 CT Colonography 1995 Colonoscopy 1995 FIT-DNA 1995 FIT 1995 FOBT 1995 Sigmoidoscopy 1995 [facility]-Colorectal Cancer Screening 1995 [facility]-Pneumococcal Vaccine: 50 + Years (1 of 1 - PCV) 2000 [facility]-Zoster Vaccines (1 of 2) 2000 [id number] Vaccine (1 - 20 24-25 season) 2024 [facility]-Influenza Vaccine (Seas[place] n Ended) 2025 [facility]-RSV Vaccine: 60+ Years o r (1 - 1-dose 75+ series) 2025 HPV Vaccines Aged Out No longer eligi ble based on patient's age to complete this topic [facility]-HIB Vaccines Aged Out No longer e ligible based on patient's age to complete this topic [facility]-Hepatitis A Vaccines Aged Out No longer eligible based on patient's age to complete this topic [facility]-IPV Vaccines Aged Out No longer e ligible based on patient's age to complete this topic [facility]-Rotavirus Vaccines Aged Out No lo nger eligible based on patient's age to complete this topic Insurance MEDICARE [facility] Care Teams Comic Book Writer Relationship Specialty Start Date End Date Kiran Renteria MD [address] [facility] [address] [place] [address] PCP - General 04/22/21
--- OUTSIDE RECORDS SUMMARY | 2025-01-17 11:06 | XMS_ITS | Patient Health Record ---
Author Organization [facility] Address [address] [facility] [address] [phone] Care Team Providers Care Company Laundry Worker Name Role Phone [place] Kiran Primary Care Provider Zaynab Concepcion Unavailable [phone] Allergies Allergen (clinical drug ingredient) Drug/Non Drug Allergy documented on EMR Reaction Allergy Type Onset Date Status Penicillin rash Drug Allergy 11/30/2020 Activ e Reason For Referral No Information Medications Medication SIG (Take, Route, Fr equency, Duration) Notes Start Date End Date Status Carvedilol 25 MG take 1 tablet by susana th twice daily for 90 days Orally Twice a day Active Irbesartan 300 MG take 1 tablet by susana th once daily Orally Once a day Active Chlorthalidone 25 MG 1 Orally once a day for 90 days Active Dilt-XR 240 MG 1 cap(s) Orally once a day for 30 days Active Problems Problem Type SNOMED Code ICD Code Onset Dates Problem Status W/U Status Risk Notes Problem [id number] Essential hypert ension (I10) Active confirmed Problem 173365648 History of cervi bridgette cancer (Z85.41) Active confirmed Problem Osteopenia (789895994) Osteopenia (M85.80) Active confirmed Problem 670757563 Pure hypercholesterolemia (E78.00) Active confirmed Problem 09176239 Stasis dermatiti s of both legs (I87.2) Active confirmed Problem 273740529 Seasonal allergi c rhinitis, unspecified trigger (J30.2) Active confirmed Problem 767633495 Basal cell carci noma (BCC) of skin of neck (C44.41) Active confirmed Problem 614158781 Stage 3b chronic kidney disease (N18.32) Active confirmed Encounters Encounter Location Date Provider Diagnosis [facility] [address] [place] [phone] 01/18/2024 Kiran Renteria Essential hypertensi on I10 Assessments Encounter Date Diagnosis (ICD Code) Assessment Notes Treatment Notes Treatment Clinical Notes Section Notes 01/18/2024 Essential hypertension (ICD-10 - I10) Plan Of Treatment Pending Test Test Name Order Date Cologuard 12/08/2021 H-DIARRHEA PANEL 11/18/2022 Insurance Providers Payer Name Payer Address Payer Phone Subscriber Number Group Number Insured Name Patient Relationship to Insured Coverage Start Date Coverage End Date MEDICARE PART [place] [address] [address] [place] [phone] [id number] Stacey Salcedo Self - patient is the insured [employer] [address] [place] [phone] [id number] Stacey Salcedo Self - patient is the insured Medical (General) History Medical History History ICD Code Hypertension Chronic kidney disease Cervical Cancer dx. 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
[2025-01-17 13:20] LABS: PHA INR Fingerstick 2.9 (0.9-1.1)
== END 2025-01-17 13:32 ==
LOC: ACC 11:04
PROVIDERS: PCP Family Medicine; Visit Provider Internal Medicine
DX: Z79.01 Long term (current) use of anticoagulants (principal)
CPT/HCPCS: 85610; 99211; G0463

== ENCOUNTER 2025-02-28 10:59 | Outpatient (CLI) | payer MEDICARE, OTHER, SELFPAY ==
--- OUTSIDE RECORDS SUMMARY | 2023-12-11 06:15 | XMS_ITS ---
Author Organization Kalyan Address 1210 [facility] [address] [place] [phone] Care Team Providers Care Safety Pin Assembling Machine Operator Name Role Phone Kiran Renteria Primary Care Provider Zaynab Concepcion Unavailable [phone] Allergies Allergen (clinical drug ingredient) Drug/Non Drug [...] Location Date Provider Diagnosis [place] 12[address] [place] [facility] [address] [place] [phone] 12/11/2023 Zaynab Concepcion Essential hypertensi on I10 [...] Notes * Jono SALCEDOisDOB:1950 (74 yo F)Acc No.[id number]:12/11/2023 Patient: Stacey MARRUFO Provider: JAZMIN Avendaño :1950 A ge:73 Y S ex:Female Date:12/11/2023 Address:[address] [place] [address], [id number] Pcp:Kiran Renteria Subjective: * Chief Complaints: * [...] ypertension, Chronic kidney disease, Cervical Cancer dx. 9610-4148, followed by GOLF COURSE EQUIPMENT OPERATOR, Declines Flu and Pneumonia vaccines 2017, [...] * Images: Billing Information: * Visit Code: 94213 Office Visit, Est Pt., Level 3. * Procedure Codes: * Electronic signature of Destiny Concepcion APRN on 02/28/2025 at 11:02 AM EDT Sign off status: Pending * Provider: JAZMIN Avendaño Date: 0 12/11/2023 Generated for Bill fields/Elena/Kari on: 0 02/28/2025 11:02 AM EDT History and Physical Notes * [...]
--- OUTSIDE RECORDS SUMMARY | 2024-01-08 06:30 | XMS_ITS ---
Author Organization Quinn Address 1210 [facility] [address] [place] [phone] Care Team Providers Care Trolley Operator Name Role Phone MyraAllisonKiran Primary Care Provider Zaynab Concepcion Unavailable [phone] Allergies Allergen (clinical drug ingredient) Drug/Non Drug Allergy documented on EMR Reaction Allergy Type Onset Date Status Penicillin rash Drug Allergy 11/30/2020 Activ e REASON FOR VISIT 4 week f/u Medications Medication SIG (Take, Route, Fr equency, Duration) Notes Start Date End Date Status Carvedilol 25 MG take 1 tablet by susana th twice daily for 90 days Orally Twice a day Active Irbesartan 300 MG take 1 tablet by susana th once daily Orally Once a day Active Dilt-XR 240 MG 1 cap(s) Orally once a day Active Chlorthalidone 25 MG 1 Orally once a day Active Vital Signs Blood pressure systolic 156 mm Hg 01/08/20 24 Blood pressure diastolic 78 mm Hg 024 Heart Rate 58 /min 01/08/2024 Height 66 in 01/08/2024 Weight 163.8 lbs 01/08/2024 BMI 26.44 kg/m2 01/08/2024 Encounters Encounter Location Date Provider Diagnosis [place] [facility] [place] [facility] [address] [place] [phone] 01/08/2024 Zaynab Concepcion Essential hypertensi on I10 and Polyarthralgia M25.50 Assessments Encounter Date Diagnosis (ICD Code) Assessment Notes Treatment Notes Treatment Clinical Notes Section Notes 01/08/2024 Essential hypertension (ICD-10 - I10) continue with home BP monitoring 01/08/2024 Polyarthralgia (ICD-10 - M25.50) encouraged tylenol and heat application prn Plan Of Treatment Medication Medication Name Sig Start Date Stop Date Notes Carvedilol 25 MG take 1 tablet by susana th twice daily for 90 days Orally Twice a day Irbesartan 300 MG take 1 tablet by susana th once daily Orally Once a day Dilt-XR 240 MG 1 cap(s) Orally once a day Chlorthalidone 25 MG 1 Orally once a day Treatment Notes Assessment Notes Essential hypertension continue with juan e BP monitoring Polyarthralgia encouraged tylenol a nd heat application prn Next Appt Details Follow Up: 3 Months,and prn, Reason: Progress Notes * Jono SALCEDOisDOB:1950 (74 yo F)Acc No.[id number]:01/08/2024 Patient: Stacey MARRUFO Provider: JAZMIN Avendaño :1950 A ge:73 Y S ex:Female Date:01/08/2024 Address:[address] [place] [id number] Pcp:Kiran Renteria Subjective: * Chief Complaints: * 1 . 4 week f/u. * HPI: C ardiology: 73 year old female presents with c/o Blood Pressure Elevated?Pt presents today for a 4 week follow up on hypertension. Pt sts that she has still been getting elevated readings but also gets some normal readings. Pt does have a written log from home which reads AM for after medications and BM as before medications. BP readings 91/52-166/80. R heumatology: c/o joint pain P t sts that her knees and left hip bother her at times due to arthritis but sts that changes in the weather effect her most often. * ROS: D ERMATOLOGY: no R perla. n o H angela. G ASTROENTEROLOGY: no N ausea. n o V omiting. n o D iarrhea.? U ROLOGY: no D ifficulty urinating. n o B lood in urine. * Medical History: H ypertension, Chronic kidney disease, Cervical Cancer dx. 0946-8055, followed by TOP TRIMMER, Declines Flu and Pneumonia vaccines 2017, Declines [...] Onset Date 11/30/2020. Objective: * Vitals: W t:163.8, Temp:97.9, BP:156/78, HR:58, Nurse:MARY, Ht: 66, BMI:26.44. * Examination: G eneral Examination: General Appearance: NAD, appears healthy, alert, pleasant. H eart: RRR. L ungs: CTAB A&P. N eurologic Exam: alert and oriented. E xtremities: no leg edema. Assessment: * Assessment: 1. E ssential hypertension - I10 (Primary) 2 . P olyarthralgia - M25.50? Plan: * Treatment: 2. P olyarthralgia Notes: encouraged tylenol and heat application prn * Follow Up: 3 Months,and prn * Images: Billing Information: * Visit Code: 64867 Office Visit, Est Pt., Level 3. * Procedure Codes: * Electronic signature of Destiny Concepcion APRN on 02/28/2025 at 11:01 AM EDT Sign off status: Pending * Provider: JAZMIN Avendaño Date: 0 01/08/2024 Generated for Bill fields/Elena/eTransmitting on: 02/28/2025 11:01 AM EDT History and Physical Notes * HPI (History of Present Illness) Category Sub-Category Detail Notes Category Not es Cardiology Blood Pressure Elevated Pt presents today for a 4 week follow up on hypertension. Pt sts that she has still been getting elevated readings but also gets some normal readings. Pt does have a written log from home which reads AM for after medications and BM as before medications BP readings 91/52-166/80 Rheumatology joint pain Pt sts that her knees and left hip bother her at times due to arthritis but sts that changes in the weather effect her most often Examination Category Sub-Category Detail Notes Category Not es General Examination Heart: RRR Lungs: CTAB A&P Extremities: no leg edema General Appearance: NAD, appears healthy , alert, pleasant Neurologic Exam: alert and oriented
--- OUTSIDE RECORDS SUMMARY | 2024-04-09 05:30 | XMS_ITS ---
Author Organization [facility] Address 12[address] [facility] 36 [facility] [address] [place] [phone] Care Team Providers Care Stereoptic Projection Topographer Name Role Phone Kiran Renteria Primary Care Provider [phone] Zaynab Concepcion [phone] Allergies Allergen (clinical drug ingredient) Drug/Non Drug Allergy documented on EMR Reaction Allergy Type Onset Date Status Penicillin rash Drug Allergy 11/30/2020 Activ e REASON FOR VISIT 3 month check, Needs labs, mammogram, bone density screening, & colon cancer screening Encounters Encounter Location Date Provider Diagnosis [facility] [address] [facility] [address] [place] [phone] 04/09/2024 Zaynab Concepcion Plan Of Treatment No Information Progress Notes * Jono SALCEDOisDOB:1950 (74 yo F)Acc No.[id number]:04/09/2024 Progress Notes Patient: Stacey MARRUFO Provider: JAZMIN Avendaño :1950 A ge:73 Y S ex:Female Date:04/09/2024 Address:[address] [place], [place] [address], [id number] Pcp:Kiran Renteria Subjective: * Chief Complaints: * [...] ypertension, Chronic kidney disease, Cervical Cancer dx. 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
--- OUTSIDE RECORDS SUMMARY | 2025-02-28 11:02 | XMS_ITS | Clinical Summary ---
Author Organization [facility] Address [address] [place] [address] Care Team Providers Care Psychiatry Adult Physician Name Role Phone Provider, No Known Primary Care Provider Unavail able Allergies No known active allergies Medications acetaminophen (TYLENOL) 500 MG tablet Take 1 tablet by mouth Every 4 (Four) Hours As Needed for Mild Pain. Active calcium carbonate (TUMS) 500 MG chewable tablet Chew 2 tablets Every 8 (Eight) Hours As Needed for Indigestion or Heartburn. Active ondansetron ODT (ZOFRAN-ODT) [address] 1 tablet on the tongue Every 6 (Six) Hours As Needed for Nausea or Vomiting. Active melatonin 3 MG tablet Take 1 tablet by mouth Every Night. Active traZODone (DESYREL) 50 MG tablet Take 0.5 tablets by mouth At Night As Needed for Sleep. Active nitroglycerin (NITROSTAT) 0.[address] 1 tablet under the tongue Every 5 (Five) Minutes As Needed for Chest Pain. Take no more than 3 doses in 15 minutes. Active docusate sodium (COLACE) 100 MG capsule Take 1 capsule by mouth Every 12 (Twelve) Hours As Needed for Constipation. Active polyethylene glycol (MiraLax Mix-In [place]) 17 g packet Take 17 g by mouth Daily As Needed. Active bisacodyl (Dulcolax) 10 MG suppository Insert 1 suppository into the rectum Daily As Needed for Constipation. Active albuterol (PROVENTIL) (2.5 MG/3ML) 0.083% nebulizer solution Take 2.5 mg by nebulization Every 6 (Six) Hours As Needed for Shortness of Air. Active pantoprazole (PROTONIX) 20 MG EC tablet Take 1 tablet by mouth Daily. Active apixaban (ELIQUIS) 5 MG tablet tablet Take 1 tablet by mouth 2 (Two) Times a Day. Active aspirin (ASPIR) 81 MG EC tablet Take 1 tablet by mouth Daily. Active atorvastatin (LIPITOR) 80 MG tablet Take 1 tablet by mouth Every Night. Active lactobacillus acidophilus (RISAQUAD) capsule capsule Take 1 capsule by mouth Daily. Active metoprolol tartrate (LOPRESSOR) 50 MG tablet Take 1 tablet by mouth Every 12 (Twelve) Hours. 04/11/20 Active dilTIAZem CD (CARDIZEM CD) 180 MG 24 hr capsule Take 1 capsule by mouth Daily. 04/12/20 Active digoxin (LANOXIN) 125 MCG tablet Take 1 tablet by mouth Daily. 04/11/20 24 Active Active Problems Problem Noted Date Diagnosed Date History of CVA (cerebrovascular accident) 2023 Paroxysmal atrial fibrillation 04/11/2024 Overview (04/11/2024): New onset 02/2024 diagnosed in setting of acute CVA [id number]= 6 Echo (04/08/2024): LVEF 55-60% with negative bubble study and no valvular abnormality Recurrence of atrial fibrillation 03/2024. Started on metoprolol tartrate and digoxin with conversion back to NSR Orthostatic hypotension 04/08/2024 Hypotension 04/06/2024 Resolved Problems Problem Noted Date Diagnosed Date Resolved Date Functional diarrhea 04/11/2024 04/11/20 Elevated serum creatinine 04/11/2024 Social History Tobacco Use Types Packs/Day Years Used Date Smoking Tobacco: Unknown Smokeless Tobacco: Never Tobacco Cessation:Counseling Given: Not Answered AUDIT-C Answer Date Recorded Q1: How often do you have a drink containing alcohol? Never 04/06/2024 Q2: How many drinks containi ng alcohol do you have on a typical day when you are drinking? Patient does not drink Q3: How often do you have si x or more drinks on one occasion? Never 04/06/2024 Abuse Screen Answer Date Recorded Feels Unsafe at Home or Work/School no 04/06/2024 Feels Threatened by Someone no 01/2024 Does Anyone Try to Keep You From Having Contact with Others or Doing Things Outside Your Home? no 04/06/2024 Physical Signs of Abuse Present no 04/06/2024 Housing Stability Answer Date Recorded Current Living Arrangements home 03/2024 Potentially Unsafe Housing Conditions none 04/08/2024 Family and Community Support Answer Yogesh e Recorded Help with Day-to-Day Activities Not on file 04/06/2024 Lonely or Isolated Not on file 04/06/2024 Employment Answer Date Recorded Do you want help finding or keeping work or a major b? Not on file 04/06/2024 Disabilities Answer Date Recorded Difficulty Concentrating, Remembering or Making Decisions no 04/06/2024 Difficulty Managing Errands Independently no 04/06/2024 Education Answer Date Recorded Help with school or training? Not on file Preferred Language South African 04/08/2024 Comments Unknown Sex and Gender Information Value Date Recorded Sex Assigned at Not on file Legal Sex Female 10:44 AM EDT Gender Identity Not on file Sexual Orientation Not on file Last Filed Vital Signs Vital Sign Reading Time Taken Comments Blood Pressure 135/82 04/11/2024 7:00 AM EDT Pulse 64 04/11/2024 12:00 PM EDT Temperature 36.3 C (97.4 F) 04/11/2024 7:00 AM EDT Respiratory Rate 18 04/11/2024 7:00 AM EDT Oxygen Saturation 97% 04/11/2024 12:00 PM EDT Inhaled Oxygen Concentration - - Weight 70.3 kg (155 lb) 04/08/2024 2:39 PM EDT Height 167.6 cm (5' 5.98 ) 04/08/2024 2:39 PM ED T Body Mass Index 25.03 04/08/2024 2:39 PM EDT Plan of Treatment Health Maintenance Due Date Last Done Comments DXA SCAN 1950 TDAP/TD VACCINES (1 - Tdap) 1969 MAMMOGRAM 1990 COLON CANCER SCREENING 5 YEA R SIGMOIDOSCOPY [address] COLONOGRAPHY 1995 FECAL OCCULT BLOOD TEST 1995 FIT Testing (1 year) 1995 Pneumococcal Vaccine 50+ (1 of 1 - PCV) 2000 ZOSTER VACCINE (1 of 2) 2000 COVID-19 Vaccine (1 - 2023-25 season) 2024 ANNUAL PHYSICAL 04/26/2024 HEPATITIS C SCREENING 04/26/2024 COLOGUARD 02/02/2025 02/02/2022, 07/10/2018 COLORECTAL CANCER SCREENING 02/02/2025 INFLUENZA VACCINE 04/30/2025 Insurance MEDICARE A & B [employer] Advance Directives * CPR (Attempt to Resuscitate) (Latest Code Status on File) Date Activated Date Inactivated Comments 04/06/2024 2:52 PM 04/11/2024 4:34 PM Question Answer Comments Code Status (Patient has no pulse and is not breathing): CPR (Attempt to Resuscitate) Medical Interventions (Patie nt has pulse or is breathing): Full Support Level Of Support Discussed With: PatientNext of Kin (If No Surrogate) Care Teams Psychiatry Adult Physician Relationship Specialty Start Date End Date Provider, [place] [address] PCP - General 04/06/24
--- OUTSIDE RECORDS SUMMARY | 2025-02-28 11:03 | XMS_ITS | Patient Health Record ---
Author Organization [facility] Address [address] [facility] [address] [id number] Care Team Providers Care Checkout Supervisor Name Role Phone Kiran Renteria Primary Care Provider [phone] Zaynab Concepcion Unavailable [phone] Allergies Allergen (clinical drug ingredient) Drug/Non Drug Allergy documented on EMR Reaction Allergy Type Onset Date Status Penicillin rash Drug Allergy 11/30/2020 Activ e Reason For Referral No Information Medications Medication SIG (Take, Route, Fr equency, Duration) Notes Start Date End Date Status Carvedilol 25 MG take 1 tablet by susnaa th twice daily for 90 days Orally Twice a day Active Irbesartan 300 MG take 1 tablet by susana th once daily Orally Once a day Active Chlorthalidone 25 MG 1 Orally once a day ; Duration: 90 days Active Dilt-XR 240 MG 1 cap(s) Orally once a day; Duration: 30 days Active Problems Problem Type SNOMED Code ICD Code Onset Dates Problem Status W/U Status Risk Notes Problem Essential hypertension (47237229) Essential hypertension (I10) Active confirmed Problem History of malignant neoplasm of cervix (701895804) History of cervical cancer (Z85.41) Active confirmed Problem Osteopenia (382752492) Osteopenia (M85.80) Active confirmed Problem Pure hypercholesterolemia (574946757) Pure hypercholesterolemia (E78.00) Active confirmed Problem Peripheral venous insufficiency (44449644) Stasis dermatitis of both legs (I87.2) Active confirmed Problem Seasonal allergic rhinitis (238839343) Seasonal allergic rhinitis, unspecified trigger (J30.2) Active confirmed Problem Basal cell carcinoma of neck (disorder) (568010721) Basal cell carcinoma (BCC) of skin of neck (C44.41) Active confirmed Problem Chronic kidney disease stage 3B (disorder) (522759613) Stage 3b chronic kidney disease (N18.32) Active confirmed Plan Of Treatment Pending Test Test Name Order Date Cologuard 12/08/2021 H-DIARRHEA PANEL 11/18/2022 Insurance Providers Payer Name Payer Address Payer Phone Subscriber Number Group Number Insured Name Patient Relationship to Insured Coverage Start Date Coverage End Date MEDICARE PART B [address] [address] [place] [address] [id number] Stacey Salcedo Self - patient is the insured [employer] INS [address] [place] [phone] [id number] Stacey Salcedo Self - patient is the insured Medical (General) History Medical History History ICD Code Hypertension Chronic kidney disease Cervical Cancer dx. 6250-9095, followed by NEGATIVE TURNER Declines Flu and Pneumonia vaccines 2017 Declines Mammogram 2017 Surgical History Surgery Date(Month/Year) Appendectomy Complete Hysterectomy Tonsilectomy Hospitalization History Reason Date(Month/Year) child x3 hysterectomy
[2025-02-28 11:33] LABS: PHA INR Fingerstick 4.0 (0.9-1.1)
== END 2025-02-28 11:35 ==
LOC: ACC 11:00
PROVIDERS: PCP Family Medicine; Visit Provider Internal Medicine
DX: Z79.01 Long term (current) use of anticoagulants (principal)
CPT/HCPCS: 85610; 99211; G0463

== ENCOUNTER 2025-03-12 11:56 | Outpatient (CLI) | payer MEDICARE, OTHER, SELFPAY ==
--- OUTSIDE RECORDS SUMMARY | 2023-12-11 06:15 | XMS_ITS ---
Author Organization Kalyan Address 1210 [facility] [address] [place] [phone] Care Team Providers Care Gambling Counsellor Name Role Phone Allison Renteriaian Primary Care Provider Zaynba Concepcion Unavailable [phone] Allergies Allergen (clinical drug ingredient) Drug/Non Drug Allergy documented on EMR Reaction Allergy Type Onset Date Status Penicillin rash Drug Allergy 11/30/2020 Activ e REASON FOR VISIT 2 week f/u Medications Medication SIG (Take, Route, Fr equency, Duration) Notes Start Date End Date Status Carvedilol 25 MG take 1 tablet by susana th twice daily for 90 days Orally Twice a day Active Irbesartan 300 MG take 1 tablet by susana th once daily Orally Once a day Active Chlorthalidone 25 MG 1 Orally once a day Active Dilt-XR 240 MG 1 cap(s) Orally once a day Active Vital Signs Blood pressure systolic 142 mm Hg 12/11/19 24 Blood pressure diastolic 70 mm Hg 024 Heart Rate 56 /min 12/11/2023 Height 66 in 12/11/2023 Weight 165.4 lbs 12/11/2023 BMI 26.69 kg/m2 12/11/2023 Encounters Encounter Location Date Provider Diagnosis [place] [facility] [place] [facility] [address] [place] [phone] 12/11/2023 Zaynab Concepcion Essential hypertensi on I10 Assessments Encounter Date Diagnosis (ICD Code) Assessment Notes Treatment Notes Treatment Clinical Notes Section Notes 12/11/2023 Essential hypertension (ICD-10 - I10) she will continue to monitor BP at home Plan Of Treatment Medication Medication Name Sig Start Date Stop Date Notes Carvedilol 25 MG take 1 tablet by susana th twice daily for 90 days Orally Twice a day Irbesartan 300 MG take 1 tablet by susana th once daily Orally Once a day Chlorthalidone 25 MG 1 Orally once a day Dilt-XR 240 MG 1 cap(s) Orally once a day Treatment Notes Assessment Notes Essential hypertension she will continue to monitor BP at home Next Appt Details Follow Up: 4 Weeks, Reason: Progress Notes * Jono SALCEDOisDOB:1950 (74 yo F)Acc No.[id number]:12/11/2023 Patient: Stacey MARRUFO Provider: JAZMIN Avendaño :1950 A ge:73 Y S ex:Female Date:12/11/2023 Address:[address] [place] [address], [id number] Pcp:Kiran Renteria Subjective: * Chief Complaints: * 1 . 2 week f/u. * HPI: C ardiology: Denies : Chest Pain. D enies : Short of Breath. D enies : Dizziness. D enies : Palpitations. D enies : Leg Edema. Blood Pressure Elevated P t presents for a follow up on hypertension. Pt has been keeping a written journal of BP readings at home. feeling much better with lower BP; BP documentation reviewed and much improved. D ermatology: Suture Removal P t sts that she may need a couple sutures removed as well. Pt sts that Dr. Luis was unable to get them all removed at her last OV so left them in. * ROS: D ERMATOLOGY: no R perla. n o H angela. G ASTROENTEROLOGY: no N ausea. n o V omiting. n o D iarrhea.? U ROLOGY: no D ifficulty urinating. n o B lood in urine. * Medical History: H ypertension, Chronic kidney disease, Cervical Cancer dx. 6692-9448, followed by FLY RAIL OPERATOR, Declines Flu and Pneumonia vaccines 2017, [...] day , Taking Chlorthalidone 25 MG Tablet 1 Orally once a day , Medication List reviewed and reconciled with the patient * Allergies: P enicillin: rash - Onset Date 11/30/2020. Objective: * Vitals: W t:165.4, Temp:97.8, BP:142/70, HR:56, Nurse:MARY, Ht: 66, BMI:26.69. * P ast Orders: L ab:CBC Venipuncture (in house) (Order Date - 11/21/2023) (Collection Date & Time - 11/21/2023) Value Reference Range wbc 5.6 3.5 - 10 lymph 30.3 15 - 50 mid 8.0 2 - 15 gran 61.7 35 - 80 rbc 4.00 3.5 - 5.5 hgb 12.7 11.5 - 16.5 hct 38.3 35 - 55 mcv 95.7 75 - 100 mch 31.8 25 - 35 mchc 33.2 31 - 38 platlet 243 100 - 400 L ab:Glycohemoglobin A1c (in house) (Order Date - 11/21/2023) (Collection Date & Time - 11/21/2023) Result: 5.4 Value Reference Range glycohemoglobin 5.4% 5 - 6.5 % L ab:P-Comprehensive Metabolic Panel (CMP) (Order Date - 11/21/2023) (Collection Date & Time - 11/21/2023 10:40 AM) Result: gluc 104, creat 1.19, gfr 48 Value Reference Range A/G Ratio 1.4 1.1-2.5 - mg/dL Albumin 4.4 3.5-5.3 - g/dL Alkaline Phosphatase 91 35-121 - IU/L ALT (SGPT) 13 <5-47 - IU/L AST (SGOT) 18 <5-40 - IU/L Bilirubin, Total 0.5 <0.2-1.2 - mg/dL BUN 16 8-23 - mg/dL Calcium 9.9 8.6-10.4 - mg/dL Chloride 105 97-108 - mEq/L CO2 27 22-32 - mEq/L Creatinine 1.19 H 0.50-1.00 - mg/dL Glucose 104 H 65-99 - mg/dL Potassium 4.5 3.5-5.3 - mEq/L Sodium 144 135-145 - mEq/L Protein 7.5 6.0-8.3 - g/dL eGFR by Creatinine 48 L >59 - mL/min/1.73m2 Clinical Info: rm 10 purple L ab:P-TSH (Order Date - 11/21/2023) (Collection Date & Time - 11/21/2023 10:40 AM) Result: Normal Value Reference Range TSH 2.21 0.43-5.25 - mU/L Clinical Info: rm 10 purple * Examination: G eneral Examination: General Appearance: NAD, appears healthy, alert, pleasant, well nourished and hydrated. H eart: RRR. L ungs: CTAB A&P. N eurologic Exam: alert and oriented. S kin: left lower neck with 2 sutures removed; wound healed. E xtremities: no leg edema. Assessment: * Assessment: 1. E ssential hypertension - I10 (Primary) Plan: * Treatment: * Follow Up: 4 Weeks * Images: Billing Information: * Visit Code: 60066 Office Visit, Est Pt., Level 3. * Procedure Codes: * Electronic signature of Destiny Concepcion APRN on 03/12/2025 at 11:59 AM EDT Sign off status: Pending * Provider: JAZMIN Avendaño Date: 0 12/11/2023 Generated for Bill fields/Elena/Kari on: 0 03/12/2025 11:59 AM EDT History and Physical Notes * HPI (History of Present Illness) Category Sub-Category Detail Notes Category Not es Dermatology Suture Removal Pt sts that she may need a couple sutures removed as well. Pt sts that Dr. Luis was unable to get them all removed at her last OV so left them in Cardiology Short of Breath feeling much better with lower BP; BP documentation reviewed and much improved Chest Pain Palpitations Dizziness Leg Edema Blood Pressure Elevated Pt presents for a follow up on hypertension. Pt has been keeping a written journal of BP readings at home Examination Category Sub-Category Detail Notes Category Not es General Examination Heart: RRR Lungs: CTAB A&P Extremities: no leg edema General Appearance: NAD, appears healthy , alert, pleasant, well nourished and hydrated Skin: left lower neck with 2 sutures removed; wound healed Neurologic Exam: alert and oriented
--- OUTSIDE RECORDS SUMMARY | 2024-01-08 06:30 | XMS_ITS ---
Author Organization [facility] Address 1210 [facility] [address] [place] [id number] Care Team Providers Care Measurement Department Chief Clerk Name Role Phone MyraAllisonKiran Primary Care Provider [phone] Zaynab Concepcion Unavailable [phone] Allergies Allergen (clinical drug ingredient) Drug/Non Drug [...] Provider Diagnosis [place] [address] [place] [phone] 01/08/2024 Zaynab Concepcion Essential hypertensi on I10 [...] Notes * Jono SALCEDOisDOB:1950 (74 yo F)Acc No.[id number]:01/08/2024 Patient: Stacey MARRUFO Provider: JAZMIN Avendaño :1950 A ge:73 Y S ex:Female Date:01/08/2024 Address:[address] [place] [phone] Pcp:Kiran Renteria Subjective: * Chief Complaints: * [...] ypertension, Chronic kidney disease, Cervical Cancer dx. 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 * Procedure Codes: * Electronic signature of Destiny Concepcion APRN on 03/12/2025 at 11:59 AM EDT Sign off status: Pending * Provider: JAZMIN Avendaño Date: 0 01/08/2024 Generated for Bill fields/Elena/eTransmitting on: 0 03/12/2025 11:59 AM EDT History [...]
--- OUTSIDE RECORDS SUMMARY | 2024-04-09 05:30 | XMS_ITS ---
Author Organization [facility] Address [address] [facility] 36 [facility] [address] [place] [phone] Care Team Providers Care Sequins Spooler Name Role Phone Kiran Renteria Primary Care Provider Zaynab Concepcion [phone] Allergies Allergen (clinical drug ingredient) Drug/Non Drug Allergy documented on EMR Reaction Allergy Type Onset Date Status Penicillin rash Drug Allergy 11/30/2020 Activ e REASON FOR VISIT 3 month check, Needs labs, mammogram, bone density screening, & colon cancer screening Encounters Encounter Location Date Provider Diagnosis [facility] [address] [place] [phone] 04/09/2024 Zaynab Concepcion Plan Of Treatment No Information Progress Notes * Jono SALCEDOUrbanOB:1950 (74 yo F)Acc No.[id number]:04/09/2024 Progress Notes Patient: Stacey MARRUFO Provider: JAZMIN Avendaño :1950 A ge:73 Y S ex:Female Date:04/09/2024 Address:[address] [place], [place] [address], [id number] Pcp:Kiran Renteria Subjective: * Chief Complaints: * [...] ypertension, Chronic kidney disease, Cervical Cancer dx. [phone], followed by SEWING PATTERN LAYOUT TECHNICIAN, Declines Flu and Pneumonia vaccines 2017, Declines [...] 04/09/2024 Generated for Bill fields/Elena/Kari on: 0 03/12/2025 11:59 AM EDT History and Physical Notes * HPI (History of Present Illness) Category Sub-Category Detail Notes Category Not es Cardiology Blood Pressure Elevated Pt presents today for a 3 month check up on hypertension Pt sts she needs labs, mammogram, bone density screening, and colon cancer screening
--- OUTSIDE RECORDS SUMMARY | 2025-03-12 11:59 | XMS_ITS | Clinical Summary ---
Author Organization [facility] Address [address] [place] [address] Care Team Providers Care Molding Machine Setter Name Role Phone Provider, No Known Primary [...] for Constipation. Active polyethylene glycol (MiraLax Mix-In [place]) 17 g packet Take 17 g by [...] 02/2024 diagnosed in setting of acute CVA [id number]= 6 Echo (04/08/2024): LVEF 55-60% with negative [...] or training? Not on file Preferred Language Greek 04/08/2024 Comments Unknown Sex and Gender Information [...] of Kin (If No Surrogate) Care Teams Molding Machine Setter Relationship Specialty Start Date End Date Provider, [place] [address] PCP - General 04/06/24
--- OUTSIDE RECORDS SUMMARY | 2025-03-12 12:00 | XMS_ITS | Clinical Summary ---
Author Organization [facility] Address [address] [place] [address] Care Team Providers Care Business Intelligence Director Name Role Phone Kiran Renteria MD Primary Care Provider + [phone] Allergies Active Allergy Reactions Criticality Noted Date [...] 2000 UKY-Zoster Vaccines (1 of 2) 2000 WBA-[id number]-55 Vaccine (1 - 20 24-25 season) 2024 UKY-Influenza Vaccine (#1) 2025 UKY-RSV Vaccine: 60+ Years o r [...] age to complete this topic Insurance MEDICARE [facility] Care Teams Business Intelligence Director Relationship Specialty Start Date End Date Kiran Renteria MD [address] [facility] [address] [place] [address] PCP - General 04/22/21
--- OUTSIDE RECORDS SUMMARY | 2025-03-12 12:00 | XMS_ITS | Patient Health Record ---
Author Organization [facility] Address [address] [place] [facility] [address] [id number] Care Team Providers Care Croze Cutter Helper Name Role Phone Kiran Renteria Primary Care Provider Zaynab Concepcion Unavailable [phone] Allergies Allergen (clinical drug ingredient) Drug/Non Drug [...] W/U Status Risk Notes Problem Essential hypertension (33104568) Essential hypertension (I10) Active confirmed Problem History of malignant neoplasm of cervix (498946731) History of cervical cancer (Z85.41) Active confirmed Problem Osteopenia (458216070) Osteopenia (M85.80) Active confirmed Problem Pure hypercholesterolemia (321922206) Pure hypercholesterolemia (E78.00) Active confirmed Problem Stasis dermatitis (disorder) (06427967) Stasis dermatitis of both legs (I87.2) Active confirmed Problem Seasonal allergic rhinitis (359511496) Seasonal allergic rhinitis, unspecified trigger (J30.2) Active confirmed Problem Basal cell carcinoma of neck (disorder) (121884748) Basal cell carcinoma (BCC) of skin of neck (C44.41) Active confirmed Problem Chronic kidney disease stage 3B (disorder) (567079976) Stage 3b chronic kidney disease (N18.32) Active confirmed Plan Of Treatment Pending Test Test Name Order Date Cologuard 12/08/2021 H-DIARRHEA PANEL 11/18/2022 Insurance Providers Payer Name Payer Address Payer Phone Subscriber Number Group Number Insured Name Patient Relationship to Insured Coverage Start Date Coverage End Date MEDICARE PART B [address] [address] [place] [address] [id number] Stacey Salcedo Self - patient is the insured [employer] INS [address] [place] [id number] [phone] [id number] Stacey Salcedo Self - patient is the insured Medical (General) History Medical History History ICD Code Hypertension Chronic kidney disease Cervical Cancer dx. 7215-0203, followed by NAIL PROFESSIONAL Declines Flu and Pneumonia vaccines 2017 Declines Mammogram 2017 Surgical History Surgery Date(Month/Year) Appendectomy Complete Hysterectomy Tonsilectomy Hospitalization History Reason Date(Month/Year) child x3 hysterectomy
--- NOTE | 2025-03-12 12:02 | XR_ITS ---
FINAL REPORT CLINICAL HISTORY: left ischial pain, ecchymosis, fall at home FINDINGS: LEFT HIP 3 views of the left hip are obtained. There is no acute fracture or dislocation. Minimal degenerative changes are noted. Visualized joint spaces are normally aligned. There is no acute soft tissue abnormality. IMPRESSION: No acute bony abnormality. Reviewed, Interpreted and Dictated by Mikayla Goodson MD Transcribed by Nicolasa Silva Authenticated and [facility]
== END 2025-03-12 23:59 | disposition home or self-care (01) ==
LOC: RAD 11:57
PROVIDERS: PCP Family Medicine; Visit Provider Nurse Practitioner
DX: M25.552 Pain in left hip (principal); S30.0XXA Contusion of lower back and pelvis, initial encounter; Z79.01 Long term (current) use of anticoagulants; W19.XXXA Unspecified fall, initial encounter; Y92.009 Unspecified place in unspecified non-institutional (private) residence as the place of occurrence of the external cause
CPT/HCPCS: 73502

== ENCOUNTER 2025-03-14 10:58 | Outpatient (CLI) | payer MEDICARE, OTHER, SELFPAY ==
--- OUTSIDE RECORDS SUMMARY | 2023-12-11 06:15 | XMS_ITS ---
Author Organization Kalyan Address 1210 [facility] [address] [place] [phone] Care Team Providers Care Surgical Manager Name Role Phone Allison Renteriaian Primary Care Provider Zaynab Concepcion Unavailable [phone] Allergies Allergen (clinical drug ingredient) Drug/Non Drug [...] Location Date Provider Diagnosis [place] 12[address] [facility] [address] [place] [phone] 12/11/2023 Zaynab Concepcion Essential hypertensi on I10 [...] Notes * Jono SALCEDOisDOB:1950 (74 yo F)Acc No.[id number]:12/11/2023 Patient: Stacey MARRUFO Provider: JAZMIN Avendaño :1950 A ge:73 Y S ex:Female Date:12/11/2023 Address:[address] [place] [address], [place] [id number] Pcp:Kiran Renteria Subjective: * Chief Complaints: * [...] ypertension, Chronic kidney disease, Cervical Cancer dx. 1006-0233, followed by ROUGH CARPENTER, Declines Flu and Pneumonia vaccines 2017, Declines [...] * Images: Billing Information: * Visit Code: 59987 Office Visit, Est Pt., Level 3. * Procedure Codes: * Electronic signature of Destiny Concepcion APRN on 03/14/2025 at 11:01 AM EDT Sign off status: Pending * Provider: JAZMIN Avendaño Date: 0 12/11/2023 Generated for Bill fields/Elena/Kari on: 0 03/14/2025 11:01 AM EDT History and Physical Notes * [...]
--- OUTSIDE RECORDS SUMMARY | 2024-01-08 06:30 | XMS_ITS ---
Author Organization [facility] Address 1210 [facility] [address] [place] [phone] Care Team Providers Care Carbonizer Name Role Phone Myra Kiran Primary Care Provider Zaynab Concepcion Unavailable [phone] Allergies Allergen (clinical drug ingredient) Drug/Non Drug [...] Provider Diagnosis [place] [address] [place] [phone] 01/08/2024 Zaynab Concepcion Essential hypertensi on I10 [...] Notes * Jono SALCEDOisDOB:1950 (74 yo F)Acc No.[id number]:01/08/2024 Patient: Stacey MARRUFO Provider: JAZMIN Avendaño :1950 A ge:73 Y S ex:Female Date:01/08/2024 Address:[address] [place] [phone] Pcp:Kiran Renteria Subjective: * Chief Complaints: * [...] ypertension, Chronic kidney disease, Cervical Cancer dx. 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 * Procedure Codes: * Electronic signature of Destiny Concepcion APRN on 03/14/2025 at 11:01 AM EDT Sign off status: Pending * Provider: JAZMIN Avendaño Date: 0 01/08/2024 Generated for Bill fields/Elena/eTransmitting on: 0 03/14/2025 11:01 AM EDT History [...]
--- OUTSIDE RECORDS SUMMARY | 2024-04-09 05:30 | XMS_ITS ---
Author Organization [facility] Address [address] [facility] 36 [facility] [address] [place] [phone] Care Team Providers Care Apartment Property Manager Name Role Phone Kiran Renteria Primary Care Provider Zaynab Concepcion [phone] Allergies Allergen (clinical drug ingredient) Drug/Non Drug Allergy documented on EMR Reaction Allergy Type Onset Date Status Penicillin rash Drug Allergy 11/30/2020 Activ e REASON FOR VISIT 3 month check, Needs labs, mammogram, bone density screening, & colon cancer screening Encounters Encounter Location Date Provider Diagnosis [facility] [address] [facility] [address] [place] [phone] 04/09/2024 Zaynab Concepcion Plan Of Treatment No Information Progress Notes * Jono SALCEDOisDOB:1950 (74 yo F)Acc No.[id number]:04/09/2024 Progress Notes Patient: Stacey MARRUFO Provider: JAZMIN Avendaño :1950 A ge:73 Y S ex:Female Date:04/09/2024 Address:[address] [place], [place] [address], [id number] Pcp:Kiran Renteria Subjective: * Chief Complaints: * [...] ypertension, Chronic kidney disease, Cervical Cancer dx. [phone], followed by SUPERVISOR ACCOUNTS RECEIVABLE, Declines Flu and Pneumonia vaccines 2017, Declines [...] 0 04/09/2024 Generated for Bill fields/Elena/Kari on: 0 03/14/2025 11:01 AM EDT History and Physical Notes * HPI (History of Present Illness) Category Sub-Category Detail Notes Category Not es Cardiology Blood Pressure Elevated Pt presents today for a 3 month check up on hypertension Pt sts she needs labs, mammogram, bone density screening, and colon cancer screening
--- OUTSIDE RECORDS SUMMARY | 2025-03-14 11:01 | XMS_ITS | Clinical Summary ---
Author Organization [facility] Address [address] [place] [address] Care Team Providers Care Photographic Colorist Name Role Phone Provider, No Known Primary [...] for Constipation. Active polyethylene glycol (MiraLax Mix-In [place]) 17 g packet Take 17 g by [...] 02/2024 diagnosed in setting of acute CVA [id number]= 6 Echo (04/08/2024): LVEF 55-60% with negative [...] or training? Not on file Preferred Language Tanzanian 04/08/2024 Comments Unknown Sex and Gender Information [...] of Kin (If No Surrogate) Care Teams Photographic Colorist Relationship Specialty Start Date End Date Provider, [place] [address] PCP - General 04/06/24
--- OUTSIDE RECORDS SUMMARY | 2025-03-14 11:02 | XMS_ITS | Clinical Summary ---
Author Organization [facility] Address [address] [place] [address] Care Team Providers Care Furnace Stock Inspector Name Role Phone Kiran Renteria MD Primary Care Provider + [phone] Allergies Active Allergy Reactions Criticality Noted Date [...] 2000 UKY-Zoster Vaccines (1 of 2) 2000 VHF-CLVTH-65 Vaccine (1 - 20 24-25 season) 2024 [...] age to complete this topic Insurance MEDICARE [facility] Care Teams Furnace Stock Inspector Relationship Specialty Start Date End Date Kiran Renteria MD [address] [facility] [address] [place] [address] PCP - General 04/22/21
--- OUTSIDE RECORDS SUMMARY | 2025-03-14 11:02 | XMS_ITS | Patient Health Record ---
Author Organization [facility] Address [address] [facility] [address] [id number] Care Team Providers Care White Sourer Name Role Phone Kiran Renteria Primary Care Provider Zaynab Concepcion Unavailable [phone] Allergies Allergen (clinical drug ingredient) Drug/Non Drug [...] W/U Status Risk Notes Problem Essential hypertension (68262451) Essential hypertension (I10) Active confirmed Problem History of malignant neoplasm of cervix (077814139) History of cervical cancer (Z85.41) Active confirmed Problem Osteopenia (717461792) Osteopenia (M85.80) Active confirmed Problem Pure hypercholesterolemia (418495283) Pure hypercholesterolemia (E78.00) Active confirmed Problem Stasis dermatitis (disorder) (66475879) Stasis dermatitis of both legs (I87.2) Active confirmed Problem Seasonal allergic rhinitis (105678209) Seasonal allergic rhinitis, unspecified trigger (J30.2) Active confirmed Problem Basal cell carcinoma of neck (disorder) (428393070) Basal cell carcinoma (BCC) of skin of neck (C44.41) Active confirmed Problem Chronic kidney disease stage 3B (disorder) (895727702) Stage 3b chronic kidney disease (N18.32) Active confirmed Plan Of Treatment Pending Test Test Name Order Date Cologuard 12/08/2021 H-DIARRHEA PANEL 11/18/2022 Insurance Providers Payer Name Payer Address Payer Phone Subscriber Number Group Number Insured Name Patient Relationship to Insured Coverage Start Date Coverage End Date MEDICARE PART B [address] [address] [place] [address] [id number] Stacye Salcedo Self - patient is the insured [employer] INS [address] [place] [id number] [phone] [id number] Stacey Salcedo Self - patient is the insured Medical (General) History Medical History History ICD Code Hypertension Chronic kidney disease Cervical Cancer dx. 8930-3439, followed by APPRENTICE PATTERN MAKER Declines Flu and Pneumonia vaccines 2017 Declines Mammogram 2017 Surgical History Surgery Date(Month/Year) Appendectomy Complete Hysterectomy Tonsilectomy Hospitalization History Reason Date(Month/Year) child x3 hysterectomy
[2025-03-14 15:59] LABS: PHA INR Fingerstick 2.8 (0.9-1.1)
== END 2025-03-14 16:17 ==
LOC: ACC 10:59
PROVIDERS: PCP Family Medicine; Visit Provider Internal Medicine
DX: Z79.01 Long term (current) use of anticoagulants (principal)
CPT/HCPCS: 85610; 99211; G0463

== ENCOUNTER 2025-04-02 14:35 | Outpatient (CLI) | payer MEDICARE, OTHER, SELFPAY ==
--- OUTSIDE RECORDS SUMMARY | 2023-11-27 04:00 | XMS_ITS ---
Author Organization [facility] Address [address] [facility] [address] [place] [phone] Care Team Providers Care Well Drill Operator Helper Cable Tool Name Role Phone Kiran Renteria Primary Care Provider Eula Luis [phone] Allergies Allergen (clinical drug ingredient) Drug/Non Drug Allergy documented on EMR Reaction Allergy Type Onset Date Status Penicillin rash Drug Allergy 11/30/2020 Activ e Results Component Value Reference Range Notes P-Surgical Pathology Reviewed date:11/30/2023 10:24:42 AM Interpretation:Basal Cell Carcinoma. Margins Free Performing Lab: Notes/Report: Surgical Pathology View Report Patient Name: ROBERTA SALCEDO Age-Sex-: 73y F 1950 Procedure Date: 11/27/2023 Accession Date: 11/28/2023 Pt Acct#: Report Date: 11/29/2023 Location: OFFICE Physician(s): Bradley Luis MD P A T H O L O G Y R E P O R T DIAGNOSIS: Specimen submitted as suspicious lesion left neck: Basal cell carcinoma. Margins free. Mary Villarreal MD electronically signed 11/29/2023 01:25 PM Gross Description: Received in formalin labeled Roberta Salcedo, suspicious lesion per requisition left neck is a singular pale herrera, slightly hemorrhagic ellipse of skin measuring 1.5 x 0.9 cm and is excised to a depth of 0.2 cm. The margin is inked blue. The specimen is sectioned and totally submitted in cassettes 1A and 1B. 1A contains the tips, 08/31; 1B, 10/29. (GB8,ZN1,sh16) Grossing services provided by [facility], [facility], d/b/a [address] [place], [address] Silas Dick MD, Supervisor [employer]. Microscopic Description: A microscopic examination has been performed. Clinical History: Neoplasm of unspecified behavior of bone, soft tissue, and skin (D49.2); suspicious skin lesion of the left neck Time of collection/ removal of tissue: 8:45 Time of placement of tissue in fixative: 8:45 Specimen List: Suspicious lesion left neck Unless specified otherwise above, the quality of the H and E and any other stains performed is satisfactory, and any internal or external positive and negative controls react appropriately. End of Report Technical services provided by [facility], [facility], d/b/a [facility], [address] [place] [address] , [place] [address] Silas Dick MD, Supervisor [employer]. Case reviewed and diagnosis rendered at [facility], [facility], d/b/a [facility], [address] [place] [address] Mary Villarreal MD, Supervisor [employer]. CONFIDENTIAL REASON FOR VISIT lesion removal on neck Medications Medication SIG (Take, Route, Fr equency, Duration) Notes Start Date End Date Status Irbesartan 300 MG take 1 tablet by susana th once daily Orally Once a day; Duration: 90 days Active Carvedilol 25 MG take 1 tablet by susana th twice daily for 90 days Orally Twice a day; Duration: 90 days Active Dilt-XR 240 MG 1 cap(s) Orally once a day; Duration: 30 days Active Chlorthalidone 25 MG 1/2 tab Orally once a day; Duration: 90 days Active Vital Signs Blood pressure systolic 194 mm Hg 11/27/19 24 Blood pressure diastolic 92 mm Hg 024 Heart Rate 65 /min 11/27/2023 Height 66 in 11/27/2023 Weight 165.6 lbs 11/27/2023 BMI 26.73 kg/m2 11/27/2023 Encounters Encounter Location Date Provider Diagnosis [facility] [address] [facility] [address] [place], [place] [phone] 11/27/2023 Eula Luis Essential hypertensi on I10 and Basal cell carcinoma (BCC) of skin of neck C44.41 Assessments Encounter Date Diagnosis (ICD Code) Assessment Notes Treatment Notes Treatment Clinical Notes Section Notes 11/27/2023 Essential hypertension (ICD-10 - I10) I suggested full dose of Chlorthalidone today 11/27/2023 Basal cell carcinoma (BCC) of skin of neck (ICD-10 - C44.41) Plan Of Treatment Treatment Notes Assessment Notes Essential hypertension I suggested full dose of Chlorthalidone today Next Appt Details Follow Up: Thursday 11/30, Reaso n: Procedure Notes * Category Sub-Category Detail Notes Excision, skin lesion Consent: informed c onsent obtained Prep: usual sterile fashio n, Betadine Anesthesia: 1% lidocaine w epine phrine, field block Incision type: full thickness ellip tical, #15 blade, edges undermined Reapproximated with: nylon suture 6-0, r unning mattress Post-procedure: H2O2, Neosporin, tae ssing applied, patient tolerated procedure well, instructed in wound care, specimen sent to pathology, dressing applied Progress Notes * Jono SALCEDOUrbanOB:1950 (74 yo F)Acc No.[id number]:11/27/2023 Progress Notes Patient: Roberta MARRUFO Provider: Eula Luis M.D. :1950 A ge:73 Y S ex:Female Date:11/27/2023 Address:[address] [place], [place] [id number] Pcp:Kiran Renteria Subjective: * Chief Complaints: * 1 . Lesion removal on neck. * HPI: D ermatology: 73 year old female presents with c/o skin lesion n jesus. Pt is here for a minor surgery to remove a skin lesion from her neck. Pt states she is doing good and denies any new concerns . Denies : rash. * ROS: D ERMATOLOGY: no R perla. n o H angela. G ASTROENTEROLOGY: no N ausea. n o V omiting. n o D iarrhea.? U ROLOGY: no D ifficulty urinating. n o B lood in urine. * Medical History: H ypertension, Chronic kidney disease, Cervical Cancer dx. 9200-9778, followed by BIOSECURITY OFFICER, Declines Flu and Pneumonia vaccines 2017, Declines Mammogram 2017. * Surgical History: A ppendectomy , Complete Hysterectomy , Tonsilectomy . * Hospitalization/Major Diagno stic Procedure: c hild x3 , hysterectomy . * Family History: F ather: 59 yrs, Aortic Aneurysm, Diabetes, diagnosed with Diabetes, Hypertension.?Mother: 69 yrs, emphysema. S iblings: alive, diagnosed with Diabetes, Hypertension, Mental Illness. 2 brother(s) . 1 son(s) , 2 daughter(s) . . 1 one son due to MVA, Mother - Emphysema, Younger Brother - Depression. * Social History: C URRENT TOBACCO USE S moking Status: P atient does NOT smoke, F ormer Smoker:?Yes, Q uit smokin 976 1/4-1/2 pack a day, started smoking at age 15. C affeine: yes, frequency: coffee. Exercise: no. Home smoke detector use: yes. Recreational drug use: no. Alcohol: No, Type: , Frequency: ,Years: , Determination:. * Medications: T aking Irbesartan 300 MG Tablet take 1 tablet by mouth once daily Orally Once a day , Taking Carvedilol 25 MG Tablet take 1 tablet by mouth twice daily for 90 days Orally Twice a day , Taking Dilt-XR 240 MG Capsule Extended Release 24 Hour 1 cap(s) Orally once a day , Taking Chlorthalidone 25 MG Tablet 1/2 tab Orally once a day , Discontinued Meloxicam 7.5 MG Tablet 1 tablet Orally Once a day , Discontinued Triamcinolone Acetonide 0.1 % Cream 1 iris applied topically 2 times a day , Discontinued Zinc 50 MG Tablet 1 tab(s) orally once a day , Discontinued Vitamin C 500 MG Tablet 1 tab(s) orally once a day , Discontinued Vitamin D3 10 MCG (400 UNIT) Tablet as directed orally once a day , Discontinued cloNIDine HCl 0.1 MG Tablet 1 tab(s) orally 2 times a day as needed , Medication List reviewed and reconciled with the patient * Allergies: P enicillin: rash - Onset Date 11/30/2020. Objective: * Vitals: W t:165.6, Temp:98.0, BP:194/92, HR:65, Nurse:JAVID, Ht: 66, Repeat BP:190/90, BMI:26.73. * Examination: G eneral Examination: General Appearance: NAD, appears healthy, alert, pleasant, Color good. N jesus: 1.25 raised, pink, smooth lesion of the left lower neck. H eart:? RSR, BP noted. * Physical Examination: Drawing:[id number] Drawing:[id number] Assessment: * Assessment: 1. E ssential hypertension - I10 (Primary) 2 . B jazmín cell carcinoma (BCC) of skin of neck - C44.41 Plan: * Treatment: * Procedures: E xcision, skin lesion: Consent: i nformed consent obtained. P rep: u sual sterile fashion, Betadine. A nesthesia: 1 % lidocaine w epinephrine, field block. I ncision type: f ull thickness elliptical, #15 blade, edges undermined. R eapproximated with: nylon suture 6-0, running mattress. P ost-procedure: H 2O2, Neosporin, dressing applied, patient tolerated procedure well, instructed in wound care, specimen sent to pathology, dressing applied. * Labs: * L ab: P-Surgical Pathology (Collection Date & Time - 11/27/2023 07:45 AM) B jazmín Cell Carcinoma. Margins Free Value Reference Range S urgical Pathology View Report - * Isabelle Sagastume 11/30/2023 10:24 :34 AM > See phone encounter * Procedure Codes: 1 1622 EXCISION MALIGNANT LESION,SCALP,NECK,HANDS,FEET 1.1 TO 2.0 CM * Follow Up: Steven wolff 11/30 * Images: Billing Information: * Visit Code: * Procedure Codes: 70931 EXCISION MALIGNANT LESION,SCALP,NECK,HANDS,FEET 1.1 TO 2.0 CM. * Electronic signature of Eula Luis MD on 04/02/2025 at 02:44 PM EDT Sign off status: Pending * Provider: Eula Luis M.D. Date: 11/27/2023 Generated for Bill fields/Elena/Kamleshitting on: 04/02/2025 02:44 PM EDT History and Physical Notes * HPI (History of Present Illness) Category Sub-Category Detail Notes Category Not es Dermatology rash skin lesion neck. Pt is here for a minor surgery to remove a skin lesion from her neck. Pt states she is doing good and denies any new concerns Examination Category Sub-Category Detail Notes Category Not es General Examination Heart: RSR, BP noted General Appearance: NAD, appears healthy , alert, pleasant, Color good Neck: 1.25 raised, pink, s mooth lesion of the left lower neck
--- OUTSIDE RECORDS SUMMARY | 2023-12-01 06:00 | XMS_ITS ---
Author [facility] Address [address] [facility] [address] [place] [phone] Care Team Providers Care Machine Operator Packaging Name Role Phone Kiran Renteria Primary Care Provider Eula Luis [phone] Allergies Allergen (clinical drug ingredient) Drug/Non Drug [...] Problem Basal cell carcinoma of neck (disorder) (168147093) Basal cell carcinoma (BCC) of skin of neck (C44.41) Active confirmed Vital Signs Blood pressure systolic 174 mm Hg 12/01/19 24 Blood pressure diastolic 90 mm Hg 024 Heart Rate 59 /min 12/01/2023 Height 66 in 12/01/2023 Weight 164.4 lbs 12/01/2023 BMI 26.53 kg/m2 12/01/2023 Encounters Encounter Location Date Provider Diagnosis [facility] [address] [place] [phone] 12/01/2023 Eula Luis Basal cell carcinoma (BCC) [...] Next Appt Details Follow Up: as scheduled, [place] son: Progress Notes * Jose Angel SALCEDOOB:1950 (74 yo F)Acc No.[id number]:12/01/2023 Progress Notes Patient: Stacey MARRUFO Provider: Eula Luis M.D. :1950 A ge:73 Y S ex:Female Date:12/01/2023 Address:[address] [place] [phone] Pcp:Kiran Renteria Subjective: * Chief Complaints: * [...] ypertension, Chronic kidney disease, Cervical Cancer dx. 0601-5958, followed by NET TECHNICAL ARCHITECT, Declines Flu and Pneumonia vaccines 2017, Declines [...] * Images: Billing Information: * Visit Code: 89588 Office Visit, Est Pt., Level 3. * Procedure Codes: * Electronic signature of Eula Luis MD on 04/02/2025 at 02:44 PM EDT Sign off status: Pending * Provider: Eula Luis M.D. Date: 0 12/01/2023 Generated for Kathei donnie/Elena/eTransmitting on: 0 04/02/2025 02:44 PM EDT History and Physical [...]
--- OUTSIDE RECORDS SUMMARY | 2023-12-11 06:15 | XMS_ITS ---
Author Organization Kalyan Address 1210 [facility] [address] [place] [phone] Care Team Providers Care Pest Control Worker Name Role Phone Allison Renteriaian Primary Care Provider Zaynab Concepcion Unavailable [phone] Allergies Allergen (clinical drug ingredient) Drug/Non Drug Allergy documented on EMR Reaction Allergy Type Onset Date Status Information temporarily unavailable Penicillin rash Drug Allergy 11/30/2020 Active REASON FOR VISIT 2 week f/u Medications [...] Location Date Provider Diagnosis [place] [address] [place] [facility] [address] [place] [phone] 12/11/2023 Zaynab Concepcion Essential hypertensi on I10 [...] Up: 4 Weeks, Reason: Progress Notes * Jose Angel SALCEDOOB:1950 (74 yo F)Acc No.[id number]:12/11/2023 Patient: Stacey MARRUFO Provider: JAZMIN Avendaño :1950 A ge:73 Y S ex:Female Date:12/11/2023 Address:[address] [place] [address], [id number] Pcp:Kiran Renteria Subjective: * Chief Complaints: * [...] ypertension, Chronic kidney disease, Cervical Cancer dx. 7747-6529, followed by TUBE DEPATCHER, Declines Flu and Pneumonia vaccines 2017, Declines [...] * Images: Billing Information: * Visit Code: 93853 Office Visit, Est Pt., Level 3. * Procedure Codes: * Electronic signature of Destiny Concepcion APRN on 04/02/2025 at 02:42 PM EDT Sign off status: Pending * Provider: JAZMIN Avendaño Date: 0 12/11/2023 Generated for Bill fields/Elena/Kari on: 0 04/02/2025 02:42 PM EDT History and Physical Notes * [...]
--- OUTSIDE RECORDS SUMMARY | 2025-04-02 14:44 | XMS_ITS | Clinical Summary ---
Author Organization [facility] Address [address] [place] [address] Care Team Providers Care Chargeback Specialist Name Role Phone Provider, No Known Primary [...] for Constipation. Active polyethylene glycol (MiraLax Mix-In [place]) 17 g packet Take 17 g by [...] 02/2024 diagnosed in setting of acute CVA [id number]= 6 Echo (04/08/2024): LVEF 55-60% with negative [...] or training? Not on file Preferred Language New Zealander 04/08/2024 Comments Unknown Sex and Gender Information [...] of Kin (If No Surrogate) Care Teams Chargeback Specialist Relationship Specialty Start Date End Date Provider, [place] [address] PCP - General 04/06/24
--- OUTSIDE RECORDS SUMMARY | 2025-04-02 14:44 | XMS_ITS | Clinical Summary ---
Author Organization [facility] Address [address] [place] [address] Care Team Providers Care Movie Machine Operator Name Role Phone Kiran Renteria MD Primary Care Provider + [phone] Allergies Active Allergy Reactions Criticality Noted Date [...] 2000 UKY-Zoster Vaccines (1 of 2) 2000 IUW-AYRRE-77 Vaccine (1 - 20 24-25 season) 2024 [...] age to complete this topic Insurance MEDICARE [facility] Care Teams Movie Machine Operator Relationship Specialty Start Date End Date Kiran Renteria MD [address] [facility] [address] [place] [address] PCP - General 04/22/21
[2025-04-02 15:11] LABS: Hematocrit 37.0 % (37.0-47.0); Hemoglobin 11.7 g/dL (12.2-16.2); Immature Granulocytes % 0.4 %; Mean Corpuscular HGB Conc 31.6 g/dL (31.8-35.4); Mean Corpuscular Hemoglobin 30.5 pg (27.0-31.2); Mean Corpuscular Volume 96.4 fl (81-99); Nucleated Red Blood Cells % 0 %; Platelet Count 213 K/mm3 (142-424); Red Blood Count 3.84 M/mm3 (4.20-5.40); Red Cell Distribution Width-SD 47.6 fL; White Blood Count 5.2 K/mm3 (4.8-10.8)
[2025-04-02 16:00] LABS: Albumin Level 4.2 g/dl (3.5-5.0); Chloride 111 mmol/L (98-107); Potassium 5.5 mmoL/L (3.5-5.1); Sodium 140 mmol/L (136-145)
[2025-04-02 16:02] LABS: Anion Gap 10.5 mEq/L (5-15); Bilirubin,Unconjugated 0.3 mg/dL (0.0-1.1); Blood Urea Nitrogen 36 mg/dl (7-17); Carbon Dioxide 24 mmol/L (22.0-30.0); Creatinine,Serum 1.90 mg/dl (0.52-1.04); Estimated Glomerular Filt Rate 26 ml/min (>60); GFR (African American) 31 ML/MIN (>60)
[2025-04-02 16:03] LABS: Alanine Aminotransferase 17 U/L (12-78); Alkaline Phosphatase 77 U/L (38-126); Aspartate Amino Transferase 29 U/L (14-36); Bilirubin,Direct 0.1 mg/dl (0.0-0.4); Bilirubin,Indirect 0.3 mg/dL (0.0-0.9); Bilirubin,Total 0.4 mg/dl (0.2-1.3); Calcium 9.9 mg/dl (8.4-10.2); Cholesterol 223 mg/dl (140-200); Glucose 96 mg/dl (74-100); HDL Cholesterol 52 mg/dl (40-60); Magnesium 1.2 mg/dl (1.6-2.3); Total Protein,Serum 7.3 g/dl (6.3-8.2); Triglycerides 122 mg/dl (30-150)
[2025-04-02 16:22] LABS: Free T4 (Free Thyroxine) 1.26 ng/dl (0.78-2.19)
[2025-04-02 16:35] LABS: Thyroid Stimulating Hormone 0.12 uIU/mL (0.465-4.68)
== END 2025-04-02 23:59 | disposition home or self-care (01) ==
LOC: LAB 14:37
PROVIDERS: PCP Family Medicine; Visit Provider Internal Medicine
DX: I48.0 Paroxysmal atrial fibrillation (principal); I10 Essential (primary) hypertension
CPT/HCPCS: 36415; 80048; 80061; 80076; 83735; 84439; 84443; 85025

== ENCOUNTER 2025-04-11 11:04 | Outpatient (CLI) | payer MEDICARE, OTHER, SELFPAY ==
--- OUTSIDE RECORDS SUMMARY | 2023-11-27 04:00 | XMS_ITS ---
Author Organization [facility] Address [address] [facility] [address] [place] [phone] Care Team Providers Care Group Supervisor Yard Name Role Phone Kiran Renteria Primary Care Provider Eula Luis [phone] Allergies Allergen (clinical drug ingredient) Drug/Non Drug [...] 1B, 10/29. (GB8,ZN1,sh16) Grossing services provided by [facility], [facility], d/b/a [address] [place], [address] Silas Dick MD, Budget Director. Microscopic Description: A microscopic examination has been [...] Report Technical services provided by [facility], [facility], d/b/a [facility], [address] [place] [address] , [place] [address] Silas Dick MD, Budget Director. Case reviewed and diagnosis rendered at [facility], [facility], d/b/a [facility], [address] [place] [address] Mary Villarreal MD, Budget Director. CONFIDENTIAL REASON FOR VISIT lesion removal on [...] day; Duration: 90 days Active Vital Signs Weight 165.6 lbs 11/27/2023 Blood pressure systolic 194 mm Hg 11/27/19 24 Blood pressure diastolic 92 mm Hg 024 Heart Rate 65 /min 11/27/2023 Height 66 in 11/27/2023 BMI 26.73 kg/m2 11/27/2023 Encounters Encounter Location Date Provider Diagnosis [facility] [address] [facility] [address] [place], [place] [phone] 11/27/2023 Eula Luis Essential hypertensi on I10 [...] Notes * Jono SALCEDOUrbanOB:1950 (74 yo F)Acc No.[id number]:11/27/2023 Progress Notes Patient: Roberta MARRUFO Provider: Eula Luis M.D. :1950 A ge:73 Y S ex:Female Date:11/27/2023 Address:[address] [place], [place] [address], [id number] Pcp:Kiran Renteria Subjective: * Chief Complaints: * [...] ypertension, Chronic kidney disease, Cervical Cancer dx. 7721-0994, followed by CAPSULE INSPECTOR, Declines Flu and Pneumonia vaccines 2017, Declines [...] Information: * Visit Code: * Procedure Codes: 80634 EXCISION MALIGNANT LESION,SCALP,NECK,HANDS,FEET 1.1 TO 2.0 CM. * Electronic signature of Eula Luis MD on 04/11/2025 at 11:07 AM EDT Sign off status: Pending * Provider: Eula Luis M.D. Date: 11/27/2023 Generated for Bill fields/Elena/Kamleshitting on: 0 04/11/2025 11:07 AM EDT History and Physical Notes * HPI [...]
--- OUTSIDE RECORDS SUMMARY | 2023-12-01 06:00 | XMS_ITS ---
[facility] Address [address] [facility] [address] [place] [phone] Care Team Providers Care Generator Man Name Role Phone Kiran Renteria Primary Care Provider Eula Luis [phone] Allergies Allergen (clinical drug ingredient) Drug/Non Drug Allergy documented on EMR Reaction Allergy Type Onset Date Status Penicillin rash Drug Allergy 11/30/2020 Activ e REASON FOR VISIT suture removal Medications Medication SIG (Take, Route, Fr equency, Duration) Notes Start Date End Date Status Chlorthalidone 25 MG 1 Orally once a day ; Duration: 90 days Active Dilt-XR 240 MG 1 cap(s) Orally once a day; Duration: 30 days Active Carvedilol 25 MG take 1 tablet by susana th twice daily for 90 days Orally Twice a day; Duration: 90 days Active Irbesartan 300 MG take 1 tablet by susana th once daily Orally Once a day; Duration: 90 days Active Problems Problem Type SNOMED Code ICD Code Onset Dates Problem Status W/U Status Risk Notes Problem Basal cell carcinoma of neck (disorder) (322898339) Basal cell carcinoma (BCC) of skin of neck (C44.41) Active confirmed Vital Signs Weight 164.4 lbs 12/01/2023 Blood pressure systolic 174 mm Hg 12/01/19 24 Blood pressure diastolic 90 mm Hg 024 Heart Rate 59 /min 12/01/2023 Height 66 in 12/01/2023 BMI 26.53 kg/m2 12/01/2023 Encounters Encounter Location Date Provider Diagnosis [facility] [address] [place] [id number] 12/01/2023 Eula Luis Basal cell carcinoma (BCC) of skin of neck C44.41 ; Wound dehiscence T81.30XA and Essential hypertension I10 Assessments Encounter Date Diagnosis (ICD Code) Assessment Notes Treatment Notes Treatment Clinical Notes Section Notes 12/01/2023 Basal cell carcinoma (BCC) of skin of neck (ICD-10 - C44.41) 12/01/2023 Wound dehiscence (ICD-10 - T81.30XA) 12/01/2023 Essential hypertension (ICD-10 - I10) Plan Of Treatment Medication Medication Name Sig Start Date Stop Date Notes Chlorthalidone 25 MG 1 Orally once a day ; Duration: 90 days Next Appt Details Follow Up: as scheduled, [place] son: Progress Notes * Jose Angel SALCEDOOB:1950 (74 yo F)Acc No.[id number]:12/01/2023 Progress Notes Patient: Stacey MARRUFO Provider: Eula Luis M.D. :1950 A ge:73 Y S ex:Female Date:12/01/2023 Address:[address] [place] [id number] Pcp:Kiran Renteria Subjective: * Chief Complaints: * 1 . Suture removal. * HPI: D ermatology: The patient is here today for a follow up on lesion removal and to get suture removal. Pt states the site is doing good. denies any pain. C ardiology: The pt is also here for a follow up on Hypertension. Pt states she has been checking her BP at home and it is running 120's-140's/50's-70's. Denies : Chest Pain. D enies : Short of Breath. D enies : Dizziness. D enies : Palpitations. * ROS: D ERMATOLOGY: no R perla. n o H angela. G ASTROENTEROLOGY: no N ausea. n o V omiting. n o D iarrhea.? U ROLOGY: no D ifficulty urinating. n o B lood in urine. * Medical History: H ypertension, Chronic kidney disease, Cervical Cancer dx. 5732-8921, followed by CARBIDE GRINDER, Declines Flu and Pneumonia vaccines 2017, Declines [...] 1/2 tab Orally once a day , Medication List reviewed and reconciled with the patient * Allergies: P enicillin: rash - Onset Date 11/30/2020. Objective: * Vitals: W t:164.4, Temp:97.9, BP:174/90, HR:59, Nurse:JAVID, Ht: 66, BMI:26.53. * Examination: D ermatology: Head and neck: The wound looked good. Basal cell Ca completely excised on report. When I began suture removal the wound began to open at inferior asspect. Remainder of sutures left in place and the wound was Steri-Stripped closed.. Assessment: * Assessment: 1. B jazmín cell carcinoma (BCC) of skin of neck - C44.41 (Primary) 2 . W ound dehiscence - T81.30XA 3 . E ssential hypertension - I10 Plan: * Treatment: * Follow Up: a s scheduled * Images: Billing Information: * Visit Code: 11261 Office Visit, Est Pt., Level 3. * Procedure Codes: * Electronic signature of Eula Luis MD on 04/11/2025 at 11:08 AM EDT Sign off status: Pending * Provider: Eula Luis M.D. Date: 0 12/01/2023 Generated for Kathei donnie/Elena/eTransmitting on: 0 04/11/2025 11:08 AM EDT History and Physical Notes * HPI (History of Present Illness) Category Sub-Category Detail Notes Category Not es Cardiology Short of Breath Chest Pain Palpitations Dizziness Examination Category Sub-Category Detail Notes Category Not es Dermatology Head and neck: The wound looked good. Basal cell Ca completely excised on report. When I began suture removal the wound began to open at inferior asspect. Remainder of sutures left in place and the wound was Steri-Stripped closed.
--- OUTSIDE RECORDS SUMMARY | 2023-12-11 06:15 | XMS_ITS ---
Author Organization Kalyan Address 1210 [facility] [address] [place] [phone] Care Team Providers Care Automatic Drill Operator Name Role Phone Allison Renteriaian Primary Care Provider Zaynab Concepcion Unavailable [phone] Allergies Allergen (clinical drug ingredient) Drug/Non Drug [...] Orally once a day Active Vital Signs Weight 165.4 lbs 12/11/2023 Blood pressure systolic 142 mm Hg 12/11/19 24 Blood pressure diastolic 70 mm Hg 024 Heart Rate 56 /min 12/11/2023 Height 66 in 12/11/2023 BMI 26.69 kg/m2 12/11/2023 Encounters Encounter Location Date Provider Diagnosis [place] 1210 [place] [facility] [address] [place] [phone] 12/11/2023 Zaynab Concepcion Essential hypertensi on I10 [...] Notes * Jono SALCEDOisDOB:1950 (74 yo F)Acc No.[id number]:12/11/2023 Patient: Stacey MARRUFO Provider: JAZMIN Avendaño :1950 A ge:73 Y S ex:Female Date:12/11/2023 Address:[address] [place] [address], [place] [id number] Pcp:Kiran Renteria Subjective: * Chief Complaints: * [...] ypertension, Chronic kidney disease, Cervical Cancer dx. 4531-5698, followed by PRODUCT PROMOTER SALES PERSON, Declines Flu and Pneumonia vaccines 2017, Declines [...] * Images: Billing Information: * Visit Code: 48953 Office Visit, Est Pt., Level 3. * Procedure Codes: * Electronic signature of Destiny Concepcion APRN on 04/11/2025 at 11:07 AM EDT Sign off status: Pending * Provider: JAZMIN Avendaño Date: 0 12/11/2023 Generated for Bill fields/Elena/Kari on: 0 04/11/2025 11:07 AM EDT History [...]
--- OUTSIDE RECORDS SUMMARY | 2024-01-08 06:30 | XMS_ITS ---
Author Organization [place] Address 1210 [facility] [address] [place] [phone] Care Team Providers Care Brake Rider Name Role Phone Myra Kiran Primary Care Provider Zaynab Concepcion Unavailable [phone] Allergies Allergen (clinical drug ingredient) Drug/Non Drug [...] once a day Active Vital Signs Weight 163.8 lbs 01/08/2024 Blood pressure systolic 156 mm Hg 01/08/20 24 Blood pressure diastolic 78 mm Hg 024 Heart Rate 58 /min 01/08/2024 Height 66 in 01/08/2024 BMI 26.44 kg/m2 01/08/2024 Encounters Encounter Location Date Provider Diagnosis [place] [facility] [place] [facility] [address] [place] [phone] 01/08/2024 Zaynab Concepcion Essential hypertensi on I10 [...] Notes * Jono SALCEDOisDOB:1950 (74 yo F)Acc No.[id number]:01/08/2024 Patient: Stacey MARRUFO Provider: JAZMIN Avendaño :1950 A ge:73 Y S ex:Female Date:01/08/2024 Address:[address] [place] [phone] Pcp:Kiran Renteria Subjective: * Chief Complaints: * [...] ypertension, Chronic kidney disease, Cervical Cancer dx. 2965-4895, followed by BROOD HATCHERY MANAGER, Declines Flu and Pneumonia vaccines 2017, Declines [...] * Images: Billing Information: * Visit Code: 48869 Office Visit, Est Pt., Level 3. * Procedure Codes: * Electronic signature of Destiny Concepcion APRN on 04/11/2025 at 11:08 AM EDT Sign off status: Pending * Provider: JAZMIN Avendaño Date: 0 01/08/2024 Generated for Bill fields/Elena/eTransmitting on: 0 04/11/2025 11:08 AM EDT History [...]
--- OUTSIDE RECORDS SUMMARY | 2024-04-09 05:30 | XMS_ITS ---
Author Organization [facility] Address 1210 [facility] [address] [place] [phone] Care Team Providers Care Top Flavor Attendant Name Role Phone Kiran Renteria Primary Care Provider [phone] Zaynab Concepcion [phone] Allergies Allergen (clinical drug ingredient) Drug/Non Drug Allergy documented on EMR Reaction Allergy Type Onset Date Status Penicillin rash Drug Allergy 11/30/2020 Activ e REASON FOR VISIT 3 month check, Needs labs, mammogram, bone density screening, & colon cancer screening Encounters Encounter Location Date Provider Diagnosis [facility] 1210 [facility] [address] [place] [phone] 04/09/2024 Zaynab Concepcion Plan Of Treatment No Information Progress Notes * Jono SALCEDOisDOB:1950 (74 yo F)Acc No.[id number]:04/09/2024 Progress Notes Patient: Stacey MARRUFO Provider: JAZMIN Avendaño :1950 A ge:73 Y S ex:Female Date:04/09/2024 Address:[address] [place], [place] [address], [id number] Pcp:Kiran Renteria Subjective: * Chief Complaints: * [...] ypertension, Chronic kidney disease, Cervical Cancer dx. 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
--- OUTSIDE RECORDS SUMMARY | 2025-04-11 11:08 | XMS_ITS | Patient Health Record ---
Author Organization [facility] Address [address] [id number] Care Team Providers Care Green Jobs Trainer Name Role Phone Kiran Renteria Primary Care Provider Allergies Allergen (clinical drug ingredient) Drug/Non Drug [...] W/U Status Risk Notes Problem Essential hypertension (98121403) Essential hypertension (I10) Active confirmed Problem History of malignant neoplasm of cervix (196601038) History of cervical cancer (Z85.41) Active confirmed Problem Osteopenia (336665872) Osteopenia (M85.80) Active confirmed Problem Pure hypercholesterolemia (766967904) Pure hypercholesterolemia (E78.00) Active confirmed Problem Stasis dermatitis (disorder) (66632398) Stasis dermatitis of both legs (I87.2) Active confirmed Problem Seasonal allergic rhinitis (046595141) Seasonal allergic rhinitis, unspecified trigger (J30.2) Active confirmed Problem Basal cell carcinoma of neck (disorder) (484011512) Basal cell carcinoma (BCC) of skin of neck (C44.41) Active confirmed Problem Chronic kidney disease stage 3B (disorder) (786778820) Stage 3b chronic kidney disease (N18.32) Active confirmed Plan Of Treatment Pending Test Test Name Order Date Cologuard 12/08/2021 H-DIARRHEA PANEL 11/18/2022 Insurance Providers Payer Name Payer Address Payer Phone Subscriber Number Group Number Insured Name Patient Relationship to Insured Coverage Start Date Coverage End Date MEDICARE PART B [address] [address] [place] [address] [id number] Stacey Salcedo Self - patient is the insured [employer] INS [address] [place] [id number] Stacey Salcedo Self - patient is the insured Medical (General) History Medical History History ICD Code Hypertension Chronic kidney disease Cervical Cancer dx. 9101-0784, followed by MOLD STRIPPER Declines Flu and Pneumonia vaccines 2017 Declines Mammogram 2017 Surgical History Surgery Date(Month/Year) Appendectomy Complete Hysterectomy Tonsilectomy Hospitalization History Reason Date(Month/Year) child x3 hysterectomy
--- OUTSIDE RECORDS SUMMARY | 2025-04-11 11:08 | XMS_ITS | Clinical Summary ---
Author Organization [facility] Address [address] [place] [address] Care Team Providers Care Crm Solution Architect Name Role Phone Kiran Renteria MD Primary Care Provider + [phone] Allergies Active Allergy Reactions Criticality Noted Date [...] 2000 UKY-Zoster Vaccines (1 of 2) 2000 [id number]-34 Vaccine (1 - 20 24-25 season) 2025 UKY-Influenza Vaccine (#1) 2025 UKY-RSV Vaccine: 60+ [...] age to complete this topic Insurance MEDICARE Member Subscriber Plan / Payer (Ef fective 2015-Present) Name:Stacey Salcedo Member ID:[id number] Relation to Subscriber:Self Name:MatiasStacey Arianna Subscriber ID:[id number] Payer ID:MEDICARE Group ID:Not on file Type:Medicare Address[place] [facility] [place] [address] [place] [address] [facility] Care Teams Crm Solution Architect Relationship Specialty Start Date End Date Kiran Renteria MD [address] [facility] [address] [place] [address] PCP - General 04/22/21
--- OUTSIDE RECORDS SUMMARY | 2025-04-11 11:08 | XMS_ITS | Clinical Summary ---
Author Organization [facility] Address [address] [place] [address] Care Team Providers Care Process Owner Name Role Phone Provider, No Known Primary [...] for Constipation. Active polyethylene glycol (MiraLax Mix-In [place]) 17 g packet Take 17 g by [...] 02/2024 diagnosed in setting of acute CVA [id number]= 6 Echo (04/08/2024): LVEF 55-60% with negative [...] or training? Not on file Preferred Language Slovenian 04/08/2024 Comments Unknown Sex and Gender Information [...] 2000 ZOSTER VACCINE (1 of 2) 2000 ANNUAL PHYSICAL 04/26/2024 HEPATITIS C SCREENING 04/26/2024 COLOGUARD 02/02/2025 02/02/2022, 07/10/2018 COLORECTAL CANCER SCREENING 02/02/2025 COVID-19 Vaccine ( season) 2025 INFLUENZA VACCINE 04/30/2025 Insurance MEDICARE A & B [employer] [place] Advance Directives * CPR (Attempt to Resuscitate) [...] of Kin (If No Surrogate) Care Teams Process Owner Relationship Specialty Start Date End Date Provider, [place] [address] PCP - General 04/06/24
[2025-04-11 12:03] LABS: PHA INR Fingerstick 2.6 (0.9-1.1)
[2025-04-11 12:40] LABS: Chloride 106 mmol/L (98-107); Sodium 141 mmol/L (136-145)
[2025-04-11 12:41] LABS: Potassium 5.0 mmoL/L (3.5-5.1)
[2025-04-11 12:43] LABS: Blood Urea Nitrogen 31 mg/dl (7-17); Creatinine,Serum 1.90 mg/dl (0.52-1.04); Estimated Glomerular Filt Rate 26 ml/min (>60); GFR (African American) 31 ML/MIN (>60)
[2025-04-11 12:44] LABS: Anion Gap 13.0 mEq/L (5-15); Calcium 9.7 mg/dl (8.4-10.2); Carbon Dioxide 27 mmol/L (22.0-30.0); Glucose 100 mg/dl (74-100)
== END 2025-04-11 12:13 ==
LOC: ACC 11:06
PROVIDERS: Physician Assistant; PCP Family Medicine; Visit Provider Internal Medicine
DX: I48.0 Paroxysmal atrial fibrillation (principal); I10 Essential (primary) hypertension; Z79.01 Long term (current) use of anticoagulants
CPT/HCPCS: 36415; 80048; 85610; 99211; G0463

== ENCOUNTER 2025-05-29 10:49 | Outpatient (CLI) | payer MEDICARE, OTHER, SELFPAY ==
--- OUTSIDE RECORDS SUMMARY | 2023-12-01 06:00 | XMS_ITS ---
Author [facility] Address [address] [facility] [address] [place] [phone] Care Team Providers Care Ships Or Barges Loader Name Role Phone Kiran Renteria Primary Care Provider Eula Luis [phone] Allergies Allergen (clinical drug ingredient) Drug/Non Drug [...] Problem Basal cell carcinoma of neck (disorder) (369928897) Basal cell carcinoma (BCC) of skin of neck (C44.41) Active confirmed Vital Signs Blood pressure systolic 174 mm Hg 12/01/19 24 Blood pressure diastolic 90 mm Hg 024 Heart Rate 59 /min 12/01/2023 Height 66 in 12/01/2023 Weight 164.4 lbs 12/01/2023 BMI 26.53 kg/m2 12/01/2023 Encounters Encounter Location Date Provider Diagnosis [facility] [address] [place] [phone] 12/01/2023 Eula Luis Basal cell carcinoma (BCC) [...] * Jose Angel SALCEDOOB:1950 (74 yo F)Acc No.[id number]:12/01/2023 Progress Notes Patient: Stacey MARRUFO Provider: Eula Luis M.D. :1950 A ge:73 Y S ex:Female Date:12/01/2023 Address:[address] [place] [phone] Pcp:Kiran Renteria Subjective: * Chief Complaints: * [...] ypertension, Chronic kidney disease, Cervical Cancer dx. 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 * Procedure Codes: * Electronic signature of Eula Luis MD on 05/29/2025 at 11:14 AM EDT Sign off status: Pending * Provider: Eula Luis M.D. Date: 0 12/01/2023 Generated for Kathei donnie/Elena/eTransmitting on: 1 11:14 AM EDT History and Physical Notes * [...]
--- OUTSIDE RECORDS SUMMARY | 2023-12-11 06:15 | XMS_ITS ---
Author Organization Kalyan Address 1210 [facility] [address] [place] [phone] Care Team Providers Care Skiver Hand Name Role Phone Allison Renteriaian Primary Care Provider Zaynab Concepcion Unavailable [phone] Allergies Allergen (clinical drug ingredient) Drug/Non Drug [...] Location Date Provider Diagnosis [place] [facility] [address] [place] [phone] 12/11/2023 Zaynab Concepcion Essential hypertensi on I10 [...] Notes * Jono SALCEDOisDOB:1950 (74 yo F)Acc No.[id number]:12/11/2023 Patient: Stacey MARRUFO Provider: JAZMIN Avendaño :1950 A ge:73 Y S ex:Female Date:12/11/2023 Address:[address] [place] [address], [id number] Pcp:Kiran Renteria Subjective: * Chief Complaints: * [...] ypertension, Chronic kidney disease, Cervical Cancer dx. 0779-6478, followed by CORRECTION OFFICER PENITENTIARY, Declines Flu and Pneumonia vaccines 2017, Declines [...] * Images: Billing Information: * Visit Code: 05057 Office Visit, Est Pt., Level 3. * Procedure Codes: * Electronic signature of Destiny Concepcion APRN on 05/29/2025 at 11:15 AM EDT Sign off status: Pending * Provider: JAZMIN Avendaño Date: 0 12/11/2023 Generated for Bill fields/Elena/Kari on: 1 11:15 AM EDT History and Physical Notes * [...]
--- OUTSIDE RECORDS SUMMARY | 2024-01-08 06:30 | XMS_ITS ---
Author Organization [place] Address 1210 [facility] [address] [place] [phone] Care Team Providers Care Remotely Piloted Vehicle Controller Name Role Phone Myra Kiran Primary Care Provider [phone] Zaynab Concepcion Unavailable [phone] Allergies Allergen (clinical drug ingredient) Drug/Non Drug [...] Provider Diagnosis [place] [facility] [place] [facility] [address] [place] [phone] 01/08/2024 Zaynab Concepcion Essential hypertensi on I10 [...] Notes * Jono SALCEDOisDOB:1950 (74 yo F)Acc No.[id number]:01/08/2024 Patient: Stacey MARRUFO Provider: JAZMIN Avendaño :1950 A ge:73 Y S ex:Female Date:01/08/2024 Address:[address] [place] [phone] Pcp:Kiran Renteria Subjective: * Chief Complaints: * [...] ypertension, Chronic kidney disease, Cervical Cancer dx. 3318-6135, followed by ELEVATOR REPAIR MECHANIC, Declines Flu and Pneumonia vaccines 2017, Declines [...] * Images: Billing Information: * Visit Code: 96075 Office Visit, Est Pt., Level 3. * Procedure Codes: * Electronic signature of Destiny Concepcion APRN on 05/29/2025 at 11:14 AM EDT Sign off status: Pending * Provider: JAZMIN Avendaño Date: 0 01/08/2024 Generated for Bill fields/Elena/eTransmitting on: 1 11:14 AM EDT History and [...]
--- OUTSIDE RECORDS SUMMARY | 2024-04-09 05:30 | XMS_ITS ---
Author Organization [facility] Address [address] [facility] [address] [place] [phone] Care Team Providers Care Animal Sticker Name Role Phone Kiran Renteria Primary Care Provider Zaynab Concepcion [phone] Allergies Allergen (clinical drug ingredient) Drug/Non Drug Allergy documented on EMR Reaction Allergy Type Onset Date Status Penicillin rash Drug Allergy 11/30/2020 Activ e REASON FOR VISIT 3 month check, Needs labs, mammogram, bone density screening, & colon cancer screening Encounters Encounter Location Date Provider Diagnosis [facility] [address] [place] [phone] 04/09/2024 Zaynab Concepcion Plan Of Treatment No Information Progress Notes * Jono SALCEDOisDOB:1950 (74 yo F)Acc No.[id number]:04/09/2024 Progress Notes Patient: Stacey MARRUFO Provider: JAZMIN Avendaño :1950 A ge:73 Y S ex:Female Date:04/09/2024 Address:[address] [place], [place] [address], [id number] Pcp:Kiran Renteria Subjective: * Chief Complaints: * [...] ypertension, Chronic kidney disease, Cervical Cancer dx. [phone], followed by BOSTON CUTTER, Declines Flu and Pneumonia vaccines 2017, Declines [...] 0 04/09/2024 Generated for Bill fields/Elena/Kari on: 1 11:15 AM EDT History and Physical Notes * HPI (History of Present Illness) Category Sub-Category Detail Notes Category Not es Cardiology Blood Pressure Elevated Pt presents today for a 3 month check up on hypertension Pt sts she needs labs, mammogram, bone density screening, and colon cancer screening
--- OUTSIDE RECORDS SUMMARY | 2025-05-29 11:15 | XMS_ITS | Clinical Summary ---
Author Organization [facility] Address [address] [place] [address] Care Team Providers Care Dog And Cat Food Cook Name Role Phone Provider, No Known Primary [...] for Constipation. Active polyethylene glycol (MiraLax Mix-In [place]) 17 g packet Take 17 g by [...] 02/2024 diagnosed in setting of acute CVA [id number]= 6 Echo (04/08/2024): LVEF 55-60% with negative [...] or training? Not on file Preferred Language Algerian 04/08/2024 Comments Unknown Sex and Gender Information [...] 07/10/2018 COLORECTAL CANCER SCREENING 02/02/2025 INFLUENZA VACCINE 02/28/2025 COVID-19 Vaccine ( season) 2025 Insurance MEDICARE A & B B[employer] [...] of Kin (If No Surrogate) Care Teams Dog And Cat Food Cook Relationship Specialty Start Date End Date Provider, [place] [address] PCP - General 04/06/24
--- OUTSIDE RECORDS SUMMARY | 2025-05-29 11:16 | XMS_ITS | Clinical Summary ---
Author Organization Healthcare Address [address] [place] [address] Care Team Providers Care Identification Clerk Name Role Phone Kiran Renteria MD Primary Care Provider + [phone] Allergies Active Allergy Reactions Criticality Noted Date [...] UKY-Bone Density Scan 1950 UKY-Depression Screening 1950 UKY-Infant/Child/Adol SDOH Screenings 1950 UKY- SDOH Screenings 1968 UKY-Adult SDOH Screenings 1968 UKY-DTaP,Tdap,and Td Vaccine s (1 - Tdap) 1969 CT Colonography 1995 Colonoscopy 1995 FIT-DNA 1995 FIT 1995 FOBT 1995 Sigmoidoscopy 1995 UKY-Colorectal Cancer Screening 1995 UKY-Pneumococcal Vaccine: 50 + Years (1 of 1 - PCV) 2000 UKY-Zoster Vaccines (1 of 2) 2000 [id number] Vaccine (1 - 20 24-25 season) 2025 [...] age to complete this topic Insurance MEDICARE [facility] Care Teams Identification Clerk Relationship Specialty Start Date End Date Kiran Renteria MD [address] [facility] [address] [place] [address] PCP - General 04/22/21
--- OUTSIDE RECORDS SUMMARY | 2025-05-29 11:16 | XMS_ITS | Patient Health Record ---
Author Organization [facility] Address [address] [id number] Care Team Providers Care Environmental Services Technician Name Role Phone Kiran Renteria Primary Care Provider [phone] Allergies Allergen (clinical drug ingredient) Drug/Non Drug [...] W/U Status Risk Notes Problem Essential hypertension (11759168) Essential hypertension (I10) Active confirmed Problem History of malignant neoplasm of cervix (309451887) History of cervical cancer (Z85.41) Active confirmed Problem Osteopenia (386509414) Osteopenia (M85.80) Active confirmed Problem Pure hypercholesterolemia (730825838) Pure hypercholesterolemia (E78.00) Active confirmed Problem Stasis dermatitis (disorder) (12050089) Stasis dermatitis of both legs (I87.2) Active confirmed Problem Seasonal allergic rhinitis (434566277) Seasonal allergic rhinitis, unspecified trigger (J30.2) Active confirmed Problem Basal cell carcinoma of neck (disorder) (411093887) Basal cell carcinoma (BCC) of skin of neck (C44.41) Active confirmed Problem Chronic kidney disease stage 3B (disorder) (138153742) Stage 3b chronic kidney disease (N18.32) Active confirmed Plan Of Treatment Pending Test Test Name Order Date Cologuard 12/08/2021 H-DIARRHEA PANEL 11/18/2022 Insurance Providers Payer Name Payer Address Payer Phone Subscriber Number Group Number Insured Name Patient Relationship to Insured Coverage Start Date Coverage End Date MEDICARE PART B [address] [address] [place] [address] [phone] [id number] Stacey Salcedo Self - patient is the insured [employer] INS [address] [place] [id number] [phone] [id number] Stacey Salcedo Self - patient is the insured Medical (General) History Medical History History ICD Code Hypertension Chronic kidney disease Cervical Cancer dx. [id number], followed by [facility] Declines Flu and Pneumonia vaccines 2017 Declines Mammogram 2017 Surgical History Surgery Date(Month/Year) Appendectomy Complete Hysterectomy Tonsilectomy Hospitalization History Reason Date(Month/Year) child x3 hysterectomy
[2025-05-29 12:20] LABS: PHA INR Fingerstick 2.3 (0.9-1.1)
[2025-05-29 19:03] LABS: Microscopic, Urine URINE MICROSCOPIC (MICROSCOPIC)
[2025-05-29 21:31] LABS: Bilirubin,Urine Negative (Negative); Color,Urine YELLOW (Yellow); Glucose,Urine (UA) Negative (Negative); Ketones,Urine Negative (Negative); Leukocyte Esterase,Urine Negative (Negative); PH,Urine 7.0 (5.0-8.5); Protein,Urine 3+ (Negative); Specific Gravity, Urine 1.025 (1.005-1.030); Urobilinogen,Urine 0.2 EU/dl (0.2)
[2025-05-29 21:33] LABS: RBC,Urine TNTC #/hpf (0-3)
== END 2025-05-29 12:23 ==
LOC: ACC 10:49
PROVIDERS: Nurse Practitioner; PCP Family Medicine; Visit Provider Internal Medicine
DX: Z79.01 Long term (current) use of anticoagulants (principal); R31.0 Gross hematuria
CPT/HCPCS: 81001; 85610; 99211; G0463

== ENCOUNTER 2025-05-29 15:34 | Emergency (ER) | payer MEDICARE, OTHER, SELFPAY ==
[2025-05-29 15:37] VITALS: BP 186/83; PULSE 68; RESP 20; TEMP 36.5; O2SAT 97; BMI 27.1
--- NOTE | 2025-05-29 15:47 | PC.NURSE ---
Pt awake alert and oriented Skin pink warm and dry Resp full and easy Speech clear and appropriate. at bedside Report given to Kirk DIMAS.
--- NOTE | 2025-05-29 15:57 | ED_ITS ---
<Statement entered by Marcy Dupont DO - 05/30/25 00:03> I was consulted by the PAGE, and we discussed the complexity of problems being addressed. I approve the treatment and management plan for this patient's care in the emergency department, thus performing a substantial portion of the medical decision making. Marcy Dupont DO Discharge Plan Disposition Patient Disposition: Home, Self-Care Condition: Good Prescriptions Prescriptions: No Action omeprazole 40 mg capsule,delayed release(DR/EC) 40 mg PO DAILY Qty: 60 4RF metoprolol succinate [Toprol XL] 200 mg tablet extended release 24 hr 200 mg PO DAILY Qty: 90 3RF amlodipine-benazepril [Lotrel] 10-40 mg capsule 1 cap PO DAILY Qty: 90 3RF clonidine HCl 0.2 mg tablet See Rx Instructions .ROUTE .COMPLEX Qty: 90 2RF Rx Instructions: one po if sbp exceeds 160 measure q 6 hrs cholecalciferol (vitamin D3) 125 mcg (5,000 unit) capsule 125 mcg PO DAILY Qty: 90 4RF tramadol 50 mg tablet 50 mg PO Q8H PRN (Reason: pain) Qty: 30 0RF terazosin 2 mg capsule 2 mg PO DAILY Qty: 90 3RF furosemide [Lasix] 40 mg tablet 40 mg PO DAILY Qty: 30 2RF cefuroxime axetil 500 mg tablet 500 mg PO BID Qty: 14 0RF ferrous sulfate 325 mg (65 mg iron) tablet,delayed release (DR/EC) 325 mg PO BID Qty: 60 2RF warfarin 2.5 mg tablet See Rx Instructions .ROUTE .COMPLEX Qty: 45 0RF Dose Instruction: TAKE 1.5 (ONE AND ONE-HALF) TABLET BY MOUTH ONCE DAILY OR DIRECTED Rx Instructions: TAKE 1.5 (ONE AND ONE-HALF) TABLET BY MOUTH ONCE DAILY OR DIRECTED aspirin 81 mg Tablet,Delayed Release (Dr/Ec) 81 mg PO DAILY Qty: 90 0RF Referrals Follow up/Referrals: Glen Jasmine MD [Primary Care Provider, Family Practice] - See instructions Bradley Smith MD [Staff Physician, Urology] - See instructions Activity Restrictions/Add. Instructions Additional Instructions/Restrictions: Please follow-up with Dr. Jasmine in the next 24 to 48 hours to recheck your kidney function, I recommend good intake with water and fluids, please return to the emergency department with any worsening signs or symptoms any nausea vomiting abdominal pain, please take your antibiotic as prescribed. Please follow-up with urologist and kidney doctor in the upcoming days/weeks as well. You will need cystoscopy as outpatient to assess your bladder. Come back to the emergency department with any worsening bleeding in your urine. Clinical Impressions Clinical Impression: Acute kidney injury superimposed on chronic kidney disease, UTI (urinary tract infection) Instructions Patient Instructions: DI for Urinary Tract Infection (UTI), Acute Kidney Injury Print Language Print Language: Guinean Discharge ED Provider: Marcy Dupont General Adult HPI General Chief complaint: Abdominal Pain Stated complaint: Doctor Mitali, blood in urine Time Seen by Provider: 05/29/25 15:47 Mode of Arrival: Ambulatory Source of Information: Patient Description of Symptoms (Recalled from ER Triage Doc. by RN): Pt states she was diagnosed with UTI today and states she has blood in her urine. Dr Piper sent her to the ED for further testing. History of Present Illness HPI narrative: 74-year-old female presents to the emergency department at the request of her PCPs office with concern for UTI/hematuria, patient dates hematuria started last night, she endorses 2 to 3 days of dysuria increased urinary frequency, concern with UTI. Patient states that she has had hematuria in the past, but not this large amount of volume, patient denies any vaginal bleeding or vaginal discharge, denies any fever chills chest pain shortness of breath abdominal pain no nausea no vomiting no constipation no diarrhea no hematuria no melena no hematochezia or hematemesis, patient denies any alcohol tobacco or drug use, other past medical history is consistent with prior cervical cancer/status post total hysterectomy, history of TIA/CVA, with atrial fibrillation, on anticoagulation therapy with Coumadin, anemia, osteoarthritis, CKD stage IIIb, hypertension, GERD. Initial triage vitals are unremarkable. Please note that above description of symptoms, in this electronic medical record under categorization of recalled from ER triage doctor by RN are reflective of an initial nursing assessment, however, is not reflective of my full history and physical exam that was personally taken and clarified. Consequentially, this preceding description of symptoms, which may include the patient's categorized chief complaint in the EMR, do not reflect my personal clinical impression, and the ultimate description of history of present illness and patient stated complaints should be deferred to this section of the note. Unless stated otherwise or congruent with this section of the note, additional signs, symptoms, or incongruence should be interpreted as inaccurate with my clinical impression. Onset (ago): day(s) Related Data Previous Rx's ?Medication ?Instructions ?Recorded aspirin 81 mg tablet,delayed 81 mg PO DAILY #90 tabs 0 04/04/24 release cholecalciferol (vitamin D3) 125 125 mcg PO DAILY #90 caps 05/20/24 mcg (5,000 unit) capsule tramadol 50 mg tablet 50 mg PO Q8H PRN pain #30 ta bs 05/20/24 terazosin 2 mg capsule 2 mg PO DAILY #90 caps 09/27 furosemide 40 mg tablet (Lasix) 40 mg PO DAILY #30 tab s 11/01/24 ferrous sulfate 325 mg (65 mg 325 mg PO BID #60 tabs 0 11/04/24 iron) tablet,delayed release omeprazole 40 mg capsule,delayed 40 mg PO DAILY #60 ca ps 01/14/25 release amlodipine 10 mg-benazepril 40 mg 1 cap PO DAILY #90 c aps 02/07/25 capsule (Lotrel) clonidine HCl 0.2 mg tablet See Rx Instructions .Route 02/07/25 .COMPLEX #90 tabs metoprolol succinate 200 mg 200 mg PO DAILY #90 tabs 0 02/07/25 tablet,extended release 24 hr (Toprol XL) warfarin 2.5 mg tablet See Rx Instructions .Route 0 04/16/25 .COMPLEX #45 tabs cefuroxime axetil 500 mg tablet 500 mg PO BID #14 tabs 05/29/25 Allergies Allergy/AdvReac Type Severity Reaction Status Date / Time Penicillins Allergy Unknown Unknown Verified 05/29/25 14:20 allergy reaction [facility] Disclaimer: The information contained in this section may have been updated after the patient was seen, as this information can be updated by other users. Medical History Chronic anticoagulation Traumatic ecchymosis of buttock Fall at home Hoarseness Globus sensation Cough PAF (paroxysmal atrial fibrillation) Acute CVA (cerebrovascular accident) History of cervical cancer Hypertension Surgical History History of hysterectomy History of tonsillectomy History of appendectomy Social History Smoking Status: Never smoker smoking status stop date: 07/31/1971 alcohol intake: never current occupational status: retired Travel in the last 8 weeks?: None Have you lived/traveled outside US in past 30 days?: No Contact w/someone who lives/traveled outside US past 30 days?: No Exposure to someone with infectious disease in past 14 days?: No Do you have a fever (greater than 100.4 F or 38 C)?: No Have you tested positive for COVID-19?: No Exposed to someone with COVID-19 in past 14 days?: No Do you have a sore throat?: No Do you have a cough?: No Do you have any weakness?: No Do you have any diarrhea?: No Are you experiencing any unusual bleeding?: Yes Do you have any muscle aches/pain?: No Do you have any abdominal pain?: No Are you experiencing loss of taste or smell?: No Other Medical History Have you received the Flu Vaccine for this season: No Have you received the Pneumonia Vaccine: No ROS Obtained: Yes All systems reviewed & no additional complaints except as documented Physical Exam General General appearance: alert and in no apparent distress Head Head exam: atraumatic and normocephalic Eye Eye exam: Present PERRL and EOMI ENT ENT exam: Present mucous membranes moist Neck Neck exam: Present normal inspection Chest Chest inspection: Present normal inspection and symmetric chest wall rise Respiratory Respiratory exam: Present normal lung sounds bilaterally; Absent respiratory distress Cardiovascular Cardiovascular exam: Present regular rate and normal rhythm Abdominal Exam Abdominal exam: Present soft; Absent tenderness Extremities Exam Extremities exam: Present normal inspection Neurological Exam Neurological exam: Present alert and oriented X3 Psychiatric Psychiatric exam: Present normal affect Skin Skin exam: Present warm and dry Medical Decision Making Medical Records Medical records reviewed: Yes I reviewed the patient's medical records. Screening: Per USPSTF and CDC recommendations, given the prevalence of disease in our region, it is our hospital?s policy to screen for HIV and viral Hepatitis for all patients aged 18 and over and those with ongoing risk factors. Graham Inquiry Pt receiving controlled substance: No Graham was queried for this patient: No Vital Signs: 05/29/25 15:37 05/29/25 17:08 05/29/25 17:31 Temperature 97.7 F Temperature Source Oral Pulse Rate 62 61 Pulse Rate [Left Radial] 68 Respiratory Rate 20 16 16 Blood Pressure 188/90 H 182/88 H Blood Pressure [Right Arm] 186/83 H Blood Pressure Mean 107 105 Blood Pressure Mean [Right Arm] 117 Blood Pressure Source [Right Arm] Automatic Cuff Blood Pressure Position [Right Arm] Sitting 02 Sat by Pulse Oximetry 97 98 98 Oxygen Delivery Method Room Air Lab Data Lab results reviewed: Yes I reviewed the patient's lab results. Lab Results 05/29/25 16:00: WBC 5.9, RBC 3.93 L, Hgb 12.4, Hct 38.1, MCV 96.9, MCH 31.6 H, MCHC 32.5, RDW 12.1, Plt Count 231, MPV 10.5 H, Neut % (Auto) 52.4, Lymph % (Auto) 30.8, [place] % (Auto) 10.1 H, Eos % (Auto) 5.6, Baso % (Auto) 0.9, Neut # (Auto) 3.1, Lymph # (Auto) 1.8, [place] # (Auto) 0.6, Eos # (Auto) 0.3, Baso # (Auto) 0.1, PT 21.3 H, INR 2.02 H, APTT 33.7 H, Sodium 138 05/29/25 16:00: Sodium 137, Potassium 4.3 05/29/25 16:00: Potassium 4.2, Chloride 101 05/29/25 16:00: Chloride 101, Carbon Dioxide 25 05/29/25 16:00: Carbon Dioxide 25, Anion Gap 16.3 H 05/29/25 16:00: Anion Gap 15.2 H, BUN 36 H 05/29/25 16:00: BUN 36 H, Creatinine 2.30 H 05/29/25 16:00: Creatinine 2.20 H, Estimated Creat Clear 26 05/29/25 16:00: Estimated Creat Clear 27, Estimated GFR 21 L 05/29/25 16:00: Estimated GFR 22 L, Est GFR ( Amer) 25 L 05/29/25 16:00: Est GFR ( Amer) 26 L, Glucose 120 H 05/29/25 16:00: Glucose 119 H, Lactate 0.7, Calcium 9.9 05/29/25 16:00: Calcium 9.8, Total Bilirubin 0.7, AST 34, ALT 23, Alkaline Phosphatase 100, Total Protein 8.9 H, Albumin 4.0, Globulin 4.9 H, A lbumin/Globulin Ratio 0.8 L, Lipase 162, HCV Ab CHE w/Rflx PCR Qn Negative, HIV Ag/Ab Combo Qual Negative 05/29/25 16:05: Urine Color Red, Urine Appearance Clear, Urine pH 7.0, Ur Specific [place] 1.020, Urine Protein 3+ A, Urine Glucose (UA) Trace, Urine Ketones 1+, Urine Blood 3+ A, Urine Nitrate Positive A, Urine Bilirubin Negative, Urine Urobilinogen 4.0, Ur Leukocyte Esterase 2+ A, Urine RBC Tntc, Urine WBC Occasional, Ur Squamous Epith Cells None, Urine Bacteria None 05/29/25 16:00 05/29/25 16:00 Orders (Tests/Meds): ED MEDICATIONS Discontinued Medications Generic Name Dose Route Start Last Admin Trade Name Freq PRN Reason Stop Dose Admin Ceftriaxone Sodium 1 gm/ 50 mls @ 100 mls/hr 05/29/25 16:20 05/29/25 17:40 Sodium Chloride IV 05/29/25 16:49 Infused ONCE ONE Infusion Sodium Chloride 1,000 mls @ 999 mls/hr 05/29/25 16:26 05/29/25 18:15 Sod Chlor 0.9% 1000ml Bag IV 05/29/25 17:26 Infused .Q1H1M ONE Infusion ORDERS Category Date Time Status CT abdomen pelvis wo con Stat Cat Scan 05/29/25 16:06 Completed BMP [Basic Metabolic Panel] Stat Lab 05/29/25 16:00 Completed Complete Blood Count Auto Diff Stat Lab 05/29/25 16:00 Completed Comprehensive Metabolic Panel Stat Lab 05/29/25 16:00 Completed HIV Combo Routine Lab 05/29/25 16:00 Completed Hepatitis C Ab Qual. W/ RFX Routine Lab 05/29/25 16:00 Completed Lactic Acid Stat Lab 05/29/25 16:00 Completed Lipase Stat Lab 05/29/25 16:00 Completed PT INR [Prothrombin Time INR] Stat Lab 05/29/25 16:00 Completed PTT [Activated Partial Thrombo Time] Stat Lab 05/29/25 16:00 Completed Urinalysis and Microscopic Stat Lab 05/29/25 16:05 Completed Blood Culture Stat Micro 05/29/25 16:30 Received Urine Culture Stat Micro 05/29/25 16:05 Received Medical Decision Narrative: 74-year-old female presents emergency department with dysuria, frequency and hematuria, for the last several days, see HPI for additional details, differential diagnosis include but not limited to, acute UTI, hemorrhagic cystitis, malignancy, pyelonephritis, side effect of anticoagulant medication, acute kidney injury among others. I discussed this patient's case with the attending physician Dr. Dupont Will obtain basic laboratory studies, CT ab pelvis with contrast, lactic acid level, lipase level, PT/INR, PTT, and UA. CBC is unremarkable. UA is notable for positive nitrites, 2+ leukocyte esterase, 3+ hematuria, 3+ proteinuria, 1+ ketonuria. Will give 1 g IV ceftriaxone for urinary tract infection. CMP is notable for elevated BUN at 36, creatinine elevation 2.3, no lactic acidosis, otherwise unremarkable CMP PT is elevated at 21.3, INR is 2.02, PTT is 33.7 Of note patient tells me she has not yet taken her warfarin today. Urine RBCs are too numerous to count, occasional WBCs, no urine bacteria, no urine squamous epithelial cells. Will give 1 L IV NS, for acute kidney injury. Also of note, because of the patient's acute kidney injury, will obtain Noncon CT abdomen pelvis for further evaluation. Will culture the patient's urine. I reviewed the patient's CT abdomen pelvis without contrast along the corresponding radiologic report, roughly a 40 x 30 x 30 mm clot in the urinary bladder follow-up cystoscopy is suggested and exclude underlying mass, possible 3 mm urethral stone, nonobstructive stone in the left kidney no right renal stones, no stones in the ureters, no hydronephrosis, cholelithiasis or evidence of acute cholecystitis diverticulosis of the colon without any evidence of acute diverticulitis. I discussed this patient case with the hospital physician at approximately 5:58 PM, at this time he would like to hold off on admission, and repeat a BMP to reassess the patient's kidney function if the patient's kidney function is heading in the right direction/creatinine and BUN are trending downward, could consider discharge home to self-care, with close urology/PCP follow-up with at that point patient would not meet admission criteria. However if the patient's creatinine and BUN are unchanged/not improving to the degree would like to see the patient would then be able to meet 24-hour observation admission criteria for UTI/acute kidney injury. Repeat BUN and creatinine are 36 and 2.2. I discussed this case yet again with with this physician at 6:43 PM, creatinine is trending down which is reassuring, discussed these results/recommendations with the patient, patient would like be discharged home to self-care, shared decision-making was utilized, as patient's creatinine is trending downward, patient does not want to be admitted at this time. Interactive discussion between hospitalist and myself as well as patient and myself thought to be safe for outpatient discharge with very close follow-up in the next 24 to 48 hours to recheck creatinine, recommend good p.o. hydration, patient tolerated p.o. intake here in the emergency department. Patient voiced understanding and agreement with current treatment plan/discharge plan. Will need urology consultation/follow-up, will give patient number for this. Strict ED return precautions were given to the patient upon discharge. Also of note, patient did have some p.o. ABX cefuroxime that was called to her pharmacy by her PCP advised her to take this medication as prescribed. Patient once again voiced understanding. Critical Care Critical Care Time Critical Care Time: No
--- NOTE | 2025-05-29 16:06 | CT_ITS ---
PROCEDURE INFORMATION: Exam: CT Abdomen And Pelvis Without Contrast Exam date and time: 05/29/2025 4:41 PM Age: 74 years old Clinical indication: Other: Dysuria, hematuria, urinary frequency TECHNIQUE: Imaging protocol: Computed tomography of the abdomen and pelvis without contrast. Radiation optimization: All CT scans at this facility use at least one of these dose optimization techniques: automated exposure control; mA and/or kV adjustment per patient size (includes targeted exams where dose is matched to clinical indication); or iterative reconstruction. COMPARISON: CR XR HIP LT 2-3V W/PELVIS 03/12/2025 12:03 PM FINDINGS: Lungs: A small density in the right lower lobe on series 3, image 8 has a flat appearance on the reformatted images and is favored to be a small focus of atelectasis rather than a nodule. Liver: No focal liver lesion is identified. Gallbladder and biliary ducts: Cholelithiasis without evidence of cholecystitis. No bile duct dilation. Pancreas: No peripancreatic inflammatory change or significant duct dilation. Spleen: Splenic size is within normal limits. No focal splenic lesion is identified. Adrenal glands: The adrenal glands are unremarkable. Kidneys and ureters: 4 mm nonobstructive left renal stone. No right renal stones. No stones in the ureters. No hydronephrosis. No significant perinephric or periureteral fat stranding. Stomach and bowel: The stomach is unremarkable. No small bowel obstruction or acute inflammatory change. Diverticulosis of the colon without evidence of acute diverticulitis. The colon is not obstructed. Appendix: The appendix is not identified. Intraperitoneal space: No free fluid or free air. Vasculature: Aortoiliac atherosclerois. No abdominal aortic aneurysm. Lymph nodes: Mildly enlarged bilateral inguinal nodes. Urinary bladder: Roughly 40 x 30 x 30 mm clot in the urinary bladder. Possible 3 mm urethral stone. Reproductive: Post hysterectomy. Bones/joints: No acute fracture is identified. Mild dextrocurvature of the lumbar spine with multilevel degenerative change. Soft tissues: Small fat containing umbilical hernia. IMPRESSION: 1. Roughly 40 x 30 x 30 mm clot in the urinary bladder. Follow-up cystoscopy is suggested to exclude an underlying mass. 2. Possible 3 mm urethral stone. 3. Nonobstructive stone in the left kidney. No right renal stones. No stones in the ureters. No hydronephrosis. 4. Cholelithiasis without evidence of acute cholecystitis. 5. Diverticulosis of the colon without evidence of acute diverticulitis.
[2025-05-29 16:07] LABS: Microscopic, Urine URINE MICROSCOPIC (MICROSCOPIC)
[2025-05-29 16:09] LABS: Hematocrit 38.1 % (37.0-47.0); Hemoglobin 12.4 g/dL (12.2-16.2); Immature Granulocytes % 0.2 %; Mean Corpuscular HGB Conc 32.5 g/dL (31.8-35.4); Mean Corpuscular Hemoglobin 31.6 pg (27.0-31.2); Mean Corpuscular Volume 96.9 fl (81-99); Nucleated Red Blood Cells % 0 %; Platelet Count 231 K/mm3 (142-424); Red Blood Count 3.93 M/mm3 (4.20-5.40); Red Cell Distribution Width-SD 43.4 fL; White Blood Count 5.9 K/mm3 (4.8-10.8)
--- OUTSIDE RECORDS SUMMARY | 2025-05-29 16:09 | XMS_ITS | Clinical Summary ---
Author Organization [facility] Address [address] [place] [address] Care Team Providers Care Patient Care Name Role Phone Provider, No Known Primary [...] for Constipation. Active polyethylene glycol (MiraLax Mix-In [place]) 17 g packet Take 17 g by [...] 02/2024 diagnosed in setting of acute CVA [id number] Echo (04/08/2024): LVEF 55-60% with negative [...] or training? Not on file Preferred Language Filipino 04/08/2024 Comments Unknown Sex and Gender Information [...] of Kin (If No Surrogate) Care Teams Patient Care Relationship Specialty Start Date End Date Provider, [place] [address] PCP - General 04/06/24
--- OUTSIDE RECORDS SUMMARY | 2025-05-29 16:09 | XMS_ITS | Clinical Summary ---
Author Organization Healthcare Address [address] [place] [address] Care Team Providers Care Director Telemetry Name Role Phone Kiran Renteria MD Primary Care Provider + [phone] Allergies Active Allergy Reactions Criticality Noted Date [...] 2000 UKY-Zoster Vaccines (1 of 2) 2000 [id number] Vaccine (1 - 20 24-25 season) 2025 [...] age to complete this topic Insurance MEDICARE [facility] Care Teams Director Telemetry Relationship Specialty Start Date End Date Kiran Renteria MD [address] [facility] [address] [place] [address] PCP - General 04/22/21
[2025-05-29 16:16] LABS: Bilirubin,Urine Negative (Negative); Glucose,Urine (UA) TRACE (Negative); Ketones,Urine 1+ (Negative); Leukocyte Esterase,Urine 2+ (Negative); PH,Urine 7.0 (5.0-8.5); Protein,Urine 3+ (Negative); Specific Gravity, Urine 1.020 (1.005-1.030); Urobilinogen,Urine 4.0 EU/dl (0.2)
[2025-05-29 16:18] LABS: Color,Urine RED (Yellow)
[2025-05-29 16:19] LABS: Lipase 162 U/L (23-300)
[2025-05-29 16:20] LABS: Alanine Aminotransferase 23 U/L (12-78); Albumin Level 4.0 g/dl (3.5-5.0); Albumin/Globulin Ratio 0.8 (1.1-1.8); Alkaline Phosphatase 100 U/L (38-126); Anion Gap 16.3 mEq/L (5-15); Aspartate Amino Transferase 34 U/L (14-36); Bilirubin,Total 0.7 mg/dl (0.2-1.3); Blood Urea Nitrogen 36 mg/dl (7-17); Calcium 9.9 mg/dl (8.4-10.2); Carbon Dioxide 25 mmol/L (22.0-30.0); Chloride 101 mmol/L (98-107); Creatinine Clearance Estimated 26 mL/min (50-200); Creatinine,Serum 2.30 mg/dl (0.52-1.04); Estimated Glomerular Filt Rate 21 ml/min (>60); GFR (African American) 25 ML/MIN (>60); Globulin 4.9 g/dL (1.3-3.2); Glucose 120 mg/dl (74-100); Potassium 4.3 mmoL/L (3.5-5.1); Sodium 138 mmol/L (136-145); Total Protein,Serum 8.9 g/dl (6.3-8.2)
[2025-05-29 16:23] LABS: Activated Partial Thrombo Time 33.7 seconds (22.8-30.6); INR 2.02 (0.9-1.1); Prothrombin Time 21.3 seconds (10.1-12.5)
[2025-05-29 16:24] LABS: RBC,Urine TNTC #/hpf (0-3); WBC,Urine Occasional #/hpf (0-3)
[2025-05-29] MEDS: 0.9 % SODIUM CHLORIDE 1000ML 1,000 ML 999 ML IV (17:00)
[2025-05-29 17:08] VITALS: BP 188/90; PULSE 62; RESP 16; O2SAT 98
[2025-05-29 17:31] VITALS: BP 182/88; PULSE 61; RESP 16; O2SAT 98
[2025-05-29 18:18] LABS: Anion Gap 15.2 mEq/L (5-15); Blood Urea Nitrogen 36 mg/dl (7-17); Calcium 9.8 mg/dl (8.4-10.2); Carbon Dioxide 25 mmol/L (22.0-30.0); Chloride 101 mmol/L (98-107); Creatinine Clearance Estimated 27 mL/min (50-200); Creatinine,Serum 2.20 mg/dl (0.52-1.04); Estimated Glomerular Filt Rate 22 ml/min (>60); GFR (African American) 26 ML/MIN (>60); Glucose 119 mg/dl (74-100); Potassium 4.2 mmoL/L (3.5-5.1); Sodium 137 mmol/L (136-145)
[2025-05-29 18:39] LABS: Hepatitis C Ab Qual. W/ RFX NEGATIVE (Negative)
[2025-05-29 19:19] VITALS: BP 125/78; PULSE 74; RESP 18; TEMP 37.1; O2SAT 99
== END 2025-05-29 19:20 | disposition home or self-care (01) ==
PROVIDERS: Physician Assistant; Emergency Provider Student in an Organized Health Care Education/Training Program; PCP Family Medicine
DX: N39.0 Urinary tract infection, site not specified (principal); R31.9 Hematuria, unspecified; R30.0 Dysuria; N17.9 Acute kidney failure, unspecified; N18.32 Chronic kidney disease, stage 3b; I12.9 Hypertensive chronic kidney disease with stage 1 through stage 4 chronic kidney disease, or unspecified chronic kidney disease; I48.0 Paroxysmal atrial fibrillation; Z86.73 Personal history of transient ischemic attack (TIA), and cerebral infarction without residual deficits; Z79.01 Long term (current) use of anticoagulants
CPT/HCPCS: 74176; 80048; 80053; 81001; 83605; 83690; 85025; 85610; 85730; 86803; 87040; 87086; 87389; 96365; 99285; J0696; J7030

== ENCOUNTER 2025-06-02 16:00 | Outpatient (CLI) | payer MEDICARE, OTHER, SELFPAY ==
[2025-06-02 19:25] LABS: Alanine Aminotransferase 18 U/L (12-78); Albumin Level 4.0 g/dl (3.5-5.0); Albumin/Globulin Ratio 1.2 (1.1-1.8); Alkaline Phosphatase 76 U/L (38-126); Anion Gap 11.7 mEq/L (5-15); Aspartate Amino Transferase 27 U/L (14-36); Bilirubin,Total 0.5 mg/dl (0.2-1.3); Blood Urea Nitrogen 35 mg/dl (7-17); Calcium 9.4 mg/dl (8.4-10.2); Carbon Dioxide 27 mmol/L (22.0-30.0); Chloride 104 mmol/L (98-107); Creatinine,Serum 2.00 mg/dl (0.52-1.04); Estimated Glomerular Filt Rate 24 ml/min (>60); GFR (African American) 29 ML/MIN (>60); Globulin 3.3 g/dL (1.3-3.2); Glucose 109 mg/dl (74-100); Potassium 4.7 mmoL/L (3.5-5.1); Sodium 138 mmol/L (136-145); Total Protein,Serum 7.3 g/dl (6.3-8.2)
--- OUTSIDE RECORDS SUMMARY | 2025-06-02 20:24 | XMS_ITS | Clinical Summary ---
Author Organization [facility] Address [address] [place] [address] Care Team Providers Care Diagrammer And Seamer Name Role Phone Provider, No Known Primary [...] for Constipation. Active polyethylene glycol (MiraLax Mix-In [place]) 17 g packet Take 17 g by [...] 02/2024 diagnosed in setting of acute CVA [id number] Echo (04/08/2024): LVEF 55-60% with negative [...] or training? Not on file Preferred Language Venezuelan 04/08/2024 Comments Unknown Sex and Gender Information [...] of Kin (If No Surrogate) Care Teams Diagrammer And Seamer Relationship Specialty Start Date End Date Provider, [place] [address] PCP - General 04/06/24
--- OUTSIDE RECORDS SUMMARY | 2025-06-02 20:24 | XMS_ITS | Clinical Summary ---
Author Organization Healthcare Address [address] [place] [address] Care Team Providers Care Electronic News Gathering Camera Person Name Role Phone Kiran Renteria MD Primary Care Provider + [phone] Allergies Active Allergy Reactions Criticality Noted Date [...] 2000 UKY-Zoster Vaccines (1 of 2) 2000 INY-HQLZB-77 Vaccine (1 - 20 24-25 season) 2025 [...] age to complete this topic Insurance MEDICARE [facility] Care Teams Electronic News Gathering Camera Person Relationship Specialty Start Date End Date Kiran Renteria MD [address] [facility] [address] [place] [address] PCP - General 04/22/21
== END 2025-06-02 23:59 | disposition home or self-care (01) ==
LOC: LAB.DROPOF 20:22
PROVIDERS: PCP Family Medicine; Visit Provider Family Medicine
DX: N17.9 Acute kidney failure, unspecified (principal); N18.9 Chronic kidney disease, unspecified; Z79.01 Long term (current) use of anticoagulants
CPT/HCPCS: 80053; 82043; 82570

== ENCOUNTER 2025-06-20 08:09 | Day surgery (SDC) | payer MEDICARE, OTHER, SELFPAY ==
[2025-06-18 14:11] VITALS: BMI 25.8
[2025-06-20 08:23] VITALS: BP 172/81; PULSE 65; RESP 16; TEMP 36.2; O2SAT 99
--- NOTE | 2025-06-20 08:48 | P.PCN_ITS ---
[facility] Procedure Note Date: 06/20/25 Time: 08:48 Procedure Note:: Chart review: The patient had an episode a few weeks ago of gross hematuria. She had a CT scan with and without infusion on 05/24. There was some suggestion of a possible 3 mm stone in her urethra. Such raises the possibility of a urethral diverticulum, actually. The CT scan also suggested a bladder filling defect, a clot perhaps. She is here for cystoscopy to make sure there is no bladder lesion. As far as her urinary flow dynamics and control are concerned she has nocturia x 4 5. However, she does not have any complaints of frequency or urgency to void during the day. This suggests the possibility of sleep apnea contributing to the nighttime frequency. She has never had a sleep study done. She has been on Estrace vaginal cream. Pre-Op diagnosis: Hematuria Postop diagnosis: Hematuria Operative note: The patient was prepped and draped in the standard fashion after being brought to the cystoscopy suite. She had just voided at outpatient and did not have a catheterized urine culture sensitivity set up. She underwent flexible cystoscopy. The patient has atrophic vaginitis. She has loss of vaginal rugae all consistent with atrophic vaginitis. The bladder itself has increased vascularity as and a bloodshot eye throughout. I do not see a bladder stone tumor hemorrhage or area of infection otherwise. Her urethra has an open bladder neck but she is not troubled she says with stress incontinence. She also has moderate urethral-itis. I suspect the hematuria came from 1 of these blood vessels popping and bleeding. I will continue to monitor for microscopic hematuria and she is going to continue Estrace vaginal cream. She could discuss a sleep study with the primary care provider. She will follow-up in 3 weeks.
[2025-06-20] MEDS: 0.9 % SODIUM CHLORIDE 500 ML 25 ML IV (08:51)
[2025-06-20 08:56] VITALS: BP 155/84; PULSE 71; RESP 16; TEMP 36.1; O2SAT 99
[2025-06-20 09:10] VITALS: BP 172/84; PULSE 67; RESP 16; TEMP 36.1; O2SAT 98
== END 2025-06-20 09:12 | disposition home or self-care (01) ==
PROVIDERS: PCP Family Medicine; Visit Provider Urology
PROC: 0TJB8ZZ Inspection of Bladder, Via Natural or Artificial Opening Endoscopic (ICD-10-PCS; CPT 52000; principal; 2025-06-20 09:15)
DX: R31.9 Hematuria, unspecified (principal); N95.2 Postmenopausal atrophic vaginitis; N39.41 Urge incontinence; N32.81 Overactive bladder; N34.2 Other urethritis; R35.1 Nocturia; R93.41 Abnormal radiologic findings on diagnostic imaging of renal pelvis, ureter, or bladder; Z79.890 Hormone replacement therapy
CPT/HCPCS: 52000; J7040

== ENCOUNTER 2025-07-21 11:15 | Outpatient (CLI) | payer MEDICARE, OTHER, SELFPAY ==
--- OUTSIDE RECORDS SUMMARY | 2024-04-09 04:30 | XMS_ITS ---
Author Organization [facility] Address [address] [facility] [address] [place] [phone] Care Team Providers Care Book Solicitor Name Role Phone Kiran Renteria Primary Care Provider [phone] Zaynab Concepcion [phone] Allergies Allergen (clinical drug ingredient) Drug/Non Drug Allergy documented on EMR Reaction Allergy Type Onset Date Status Penicillin rash Drug Allergy 11/30/2020 Activ e REASON FOR VISIT 3 month check, Needs labs, mammogram, bone density screening, & colon cancer screening Encounters Encounter Location Date Provider Diagnosis [facility] [address] [facility] [address] [place] [phone] 04/09/2024 Zaynab Concepcion Plan Of Treatment No Information Progress Notes * Jono SALCEDOisDOB:1950 (74 yo F)Acc No.[id number]:04/09/2024 Progress Notes Patient: Stacey MARRUFO Provider: JAZMIN Avendaño :1950 A ge:73 Y S ex:Female Date:04/09/2024 Address:[address] [place], [place] [address], [id number] Pcp:Kiran Renteria Subjective: * Chief Complaints: * 1 . 3 month check. 2. Needs labs, mammogram, bone density screening, & colon cancer screening. * HPI: C ardiology: 73 year old female presents with c/o Blood Pressure Elevated?Pt presents today for a 3 month check up on hypertension P t sts she needs labs, mammogram, bone density screening, and colon cancer screening. * ROS: D ERMATOLOGY: no R perla. n o H angela. G ASTROENTEROLOGY: no N ausea. n o V omiting. n o D iarrhea.? U ROLOGY: no D ifficulty urinating. n o B lood in urine. * Medical History: H ypertension, Chronic kidney disease, Cervical Cancer dx. 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 * Allergies: P enicillin: rash - Onset Date 11/30/2020. Objective: * Vitals: Assessment: Plan: * Treatment: * Images: Billing Information: * Visit Code: * Procedure Codes: * Electronic signature of Destiny Concepcion APRN on 07/22/2025 at 12:33 PM EST Sign off status: Pending * Provider: JAZMIN Avendaño Date: 0 04/09/2024 Generated for Bill fields/Elena/Kari on: 09/22/2024 12:33 PM EST History and Physical Notes * HPI (History of Present Illness) Category Sub-Category Detail Notes Category Not es Cardiology Blood Pressure Elevated Pt presents today for a 3 month check up on hypertension Pt sts she needs labs, mammogram, bone density screening, and colon cancer screening
[2025-07-21 14:42] LABS: Microscopic, Urine URINE MICROSCOPIC (MICROSCOPIC)
[2025-07-21 15:31] LABS: Bilirubin,Urine Negative (Negative); Color,Urine YELLOW (Yellow); Glucose,Urine (UA) Negative (Negative); Ketones,Urine Negative (Negative); Leukocyte Esterase,Urine Negative (Negative); PH,Urine 5.5 (5.0-8.5); Protein,Urine 1+ (Negative); Specific Gravity, Urine 1.020 (1.005-1.030); Urobilinogen,Urine 0.2 EU/dl (0.2)
[2025-07-21 16:11] LABS: Bacteria,Urine Trace /lpf
--- OUTSIDE RECORDS SUMMARY | 2025-07-22 12:33 | XMS_ITS | Clinical Summary ---
Author Organization [facility] Address [address] [place] [address] Care Team Providers Care Mineral Resources Inspector Name Role Phone Provider, No Known Primary [...] for Constipation. Active polyethylene glycol (MiraLax Mix-In [place]) 17 g packet Take 17 g by [...] 02/2024 diagnosed in setting of acute CVA [id number]= 6 Echo (04/08/2024): LVEF 55-60% with negative [...] or training? Not on file Preferred Language Cuban 04/08/2024 Comments Unknown Sex and Gender Information [...] of Kin (If No Surrogate) Care Teams Mineral Resources Inspector Relationship Specialty Start Date End Date Provider, [place] [address] PCP - General 04/06/24
--- OUTSIDE RECORDS SUMMARY | 2025-07-22 12:33 | XMS_ITS | Encounter Summary ---
Author Organization [facility] Address [address] [place] [address] Care Team Providers Care Dental Service Technician Name Role Phone Kiran Renteria MD Primary Care Provider Encounter Details Date Type Department Care Team ([facility] Contact Info) Description 06/25/2025 Orders Only [facility] [address] [place] [address] Laurel Meyer Stage 3b chronic kidney disease (CMS/HCC) (Primary Dx); Microalbuminuria; Vitamin D insufficiency Social History Tobacco Use Types Packs/Day Years Used Date Smoking Tobacco: Former Smokeless Tobacco: Never Alcohol Use Standard Drinks/Week Comments Never 0 (1 standard drink = 0.6 oz pur e alcohol) Comments Unknown Sex and Gender Information Value Date Recorded Sex Assigned at Not on file Legal Sex Female 7:58 PM EDT Gender Identity Not on file Sexual Orientation Not on file documented as of this encounter Plan of Treatment Upcoming Encounters Date Type Department Care Team ([facility] Contact Info) Description 07/30/2025 1:00 PM EST Office Visit [facility] Nephrology, Bone & Mineral Metabolism [address] [facility] [address] [facility], [address] [place] [address] Rohit Colón MD [address] [place] [phone] Scheduled Orders Name Type Priority Associated Diagnoses Orde r Schedule Renal Function Panel, Plasma Lab Routine Stage 3b chronic kidney disease (CMS/HCC) Microalbuminuria Expected: 06/25/2025 (Approximate), Expires: 12/23/2026 CBC and Differential Lab Routine Stage 3b chronic kidney disease (CMS/HCC) Microalbuminuria Expected: 06/25/2025 (Approximate), Expires: 12/23/2026 Creatinine, Random, Urine Lab Routine Stage 3b chronic kidney disease ([facility]) Microalbuminuria Expected: 06/25/2025 (Approximate), Expires: 12/23/2026 Protein, Random, Urine with Creatinine Lab Routine Stage 3b chronic kidney disease ([facility]) Microalbuminuria Expected: 06/25/2025 (Approximate), Expires: 12/23/2026 Urinalysis with reflex microscopic (Culture NOT Included) Lab Routine Stage 3b chronic kidney disease ([facility]) Microalbuminuria Expected: 06/25/2025 (Approximate), Expires: 12/23/2026 PTH Intact Total Lab Routine Stage 3b chronic kidney disease ([facility]) Microalbuminuria Vitamin D insufficiency Expected: 06/25/2025 (Approximate), Expires: 12/23/2026 Vitamin D 25 Hydroxy Lab Routine Stage 3b chronic kidney disease ([facility]) Microalbuminuria Vitamin D insufficiency Expected: 06/25/2025 (Approximate), Expires: 12/23/2026 Albumin-creatinine ratio, urine, random Lab Routine Stage 3b chronic kidney disease ([facility]) Microalbuminuria Expected: 06/25/2025 (Approximate), Expires: 12/23/2026 documented as of this encounter Visit Diagnoses Diagnosis Stage 3b chronic kidney disease ([facility])- Primary Microalbuminuria Proteinuria Vitamin D insufficiency documented in this encounter Care Teams Dental Service Technician Relationship Specialty [place] [id number] PCP - General 04/22/21 documented as of this encounter
--- OUTSIDE RECORDS SUMMARY | 2025-07-22 12:33 | XMS_ITS | Patient Health Record ---
Author Organization [facility] Address [address] [id number] Care Team Providers Care Shoer Name Role Phone Kiran Renteria Primary Care [...] W/U Status Risk Notes Problem Essential hypertension (01371343) Essential hypertension (I10) Active confirmed Problem History of malignant neoplasm of cervix (912686220) History of cervical cancer (Z85.41) Active confirmed Problem Osteopenia (867087195) Osteopenia (M85.80) Active confirmed Problem Pure hypercholesterolemia (548553734) Pure hypercholesterolemia (E78.00) Active confirmed Problem Stasis dermatitis (disorder) (93323583) Stasis dermatitis of both legs (I87.2) Active confirmed Problem Seasonal allergic rhinitis (911728561) Seasonal allergic rhinitis, unspecified trigger (J30.2) Active confirmed Problem Basal cell carcinoma of neck (disorder) (072442750) Basal cell carcinoma (BCC) of skin of neck (C44.41) Active confirmed Problem Chronic kidney disease stage 3B (disorder) (605981038) Stage 3b chronic kidney disease (N18.32) Active confirmed Plan Of Treatment Pending Test Test Name Order Date Cologuard 12/08/2021 H-DIARRHEA PANEL 11/18/2022 Insurance Providers Payer Name Payer Address Payer Phone Subscriber Number Group Number Insured Name Patient Relationship to Insured Coverage Start Date Coverage End Date MEDICARE PART [place] [address] [address] [place] [address] [phone] [id number] Stacey Salcedo Self - patient is the insured [employer] [address] [place] [phone] [id number] Stacey Salcedo Self - patient is the insured Medical (General) History Medical History History ICD Code Hypertension Chronic kidney disease Cervical Cancer dx. [id number], followed by GASTROINTESTINAL TECHNICIAN Declines Flu and Pneumonia vaccines 2017 Declines Mammogram 2017 Surgical History Surgery Date(Month/Year) Appendectomy Complete Hysterectomy Tonsilectomy Hospitalization History Reason Date(Month/Year) child x3 hysterectomy
--- OUTSIDE RECORDS SUMMARY | 2025-07-22 12:33 | XMS_ITS | Clinical Summary ---
Author Organization [facility] Address [address] [id number] Care Team Providers Care Customer Operations Associate Name Role Phone Kiran Renteria MD Primary Care Provider [phone] Allergies Active Allergy Reactions Criticality Noted Date [...] chronic kidney disease 07/05/2021 Essential hypertension 07/05/2021 Encounters Date Type Department Care Team Description 06/25/2025 Orders Only [facility] [address] [place] [phone] Laurel Meyer Stage 3b chronic kidney disease (CMS/HCC) (Primary Dx); Microalbuminuria; Vitamin D insufficiency from Last 3 Months Family History Medical History Relation Name Comments [...] Mass Index - - Plan of Treatment Upcoming Encounters Date Type Department Care Team (Late st Contact Info) Description 07/30/2025 1:00 PM EST Office Visit [facility] Nephrology, Bone & Mineral Metabolism [address] [facility], [address] [place] [address] Rohit Colón MD [address] [place] [phone] Health Maintenance Due Date Last Done Comments UK-Bone Density Scan 1950 UKY-Depression Screening 1950 UKY-Hepatitis C Screening 1950 UK-Medicare Annual Wellness (AWV) 1950 UKY-Infant/Child/Adol SDOH Screenings 1950 [id number]-[id number]-78 Vaccine (#1) 03/12/1951 UKY- SDOH Screenings 1968 UKY-Adult SDOH Screenings 1968 UKY-DTaP,Tdap,and Td Vaccine s (1 - Tdap) 1969 CT Colonography 1995 Colonoscopy 1995 FIT 1995 FOBT 1995 Sigmoidoscopy 1995 UKY-Breast Cancer Screening 2000 UKY-Pneumococcal Vaccine: 50 + Years (1 of 1 - PCV) 2000 UKY-RSV Vaccine: 60+ Years o r (1 - Risk 50-74 years 1-dose series) 2000 UKY-Zoster Vaccines (1 of 2) 2000 UKY-Influenza Vaccine (#1) 2025 FIT-DNA 06/16/2028 06/16/2025, 02/02/2022, 07/10/2018 UKY-Colorectal Cancer Screening 06/16/2028 HPV Vaccines (No Doses Required) Completed UKY-HIB Vaccines Aged Out No longer e [...] to complete this topic Insurance MEDICARE [facility] Care Teams Customer Operations Associate Relationship Specialty [place] [id number] PCP - General 04/22/21
== END 2025-07-21 23:59 | disposition home or self-care (01) ==
LOC: LAB.DROPOF 07-22 12:26
PROVIDERS: PCP Family Medicine; Visit Provider Urology
DX: R31.9 Hematuria, unspecified (principal)
CPT/HCPCS: 81001